=== PATIENT | male | born 1960 | race Caucasian/White ===

== ENCOUNTER 2020-01-18 17:01 | Outpatient (REF) | payer OTHER, SELFPAY | END 2020-01-18 17:02 | disposition home or self-care (01) | LOC: HO.LAB 17:01 | PROVIDERS: PCP Internal Medicine; Visit Provider Internal Medicine | DX: Z20.828 Contact with and (suspected) exposure to other viral communicable diseases (principal) | CPT/HCPCS: U0003 ==

== ENCOUNTER 2020-05-31 10:59 | Outpatient (REF) | payer OTHER, SELFPAY ==
[2020-05-31 11:20] LABS: MANUAL DIFF FLAG NO
[2020-05-31 11:40] LABS: Basophils Percent Auto 0.5 % (0-2); Eosinophils Absolute Auto 0.2 X10*3/uL (0.0-0.4); Eosinophils Percent Auto 2.6 % (0-4); Hematocrit 42.3 % (42-52); Hemoglobin 14.1 g/dl (14.0-18.0); Imm Gran Abs Auto 0.03 X10*3/uL (0.00-0.03); Imm Gran Pct Auto 0.5 % (0.0-0.4); Lymphocytes Absolute Auto 1.4 X10*3/uL (1.2-4.9); Lymphocytes Percent Auto 24.6 % (20-40); Mean Corpuscular HGB Conc 33.3 g/dl (31.0-36.0); Mean Corpuscular Hemoglobin 30.1 pg (27.0-33.0); Mean Corpuscular Volume 90.2 fL (80-98); Mean Platelet Volume 10.8 fL (9.4-12.4); Monocytes Absolute Auto 0.5 X10*3/uL (0.1-1.2); Monocytes Percent Auto 9.4 % (2-11); Neutrophils Absolute Auto 3.6 X10*3/uL (2.0-8.3); Neutrophils Percent Auto 62.4 % (45-73); Platelet Count 235 X10*3/uL (160-400); Red Blood Count 4.69 X10*6/uL (4.60-5.80); Red Cell Distribution Width 12.5 % (11.0-16.0); White Blood Count 5.7 X10*3/uL (4.8-10.8)
[2020-05-31 11:47] LABS: Glucose Urine UA NEG (NEG); Leukocyte Esterase Urine NEG (NEG); Nitrite Urine NEG (NEG); Urine Blood NEG (NEG); Urine Ketones NEG (NEG); Urine Protein NEG (NEG-TRACE)
[2020-05-31 11:48] LABS: Appearance Urine CLEAR; Color Urine YELLOW
[2020-05-31 12:11] LABS: Alanine Aminotransferase 25 U/L (0-40); Albumin Level 4.2 g/dL (3.5-5.0); Alkaline Phosphatase 54 U/L (39-117); Anion Gap 11 (12-20); Aspartate Amino Transferase 19 U/L (5-37); Bilirubin Total 1.3 mg/dL (0.0-1.0); Blood Urea Nitrogen 17 mg/dL (9-16); Calcium 9.2 mg/dL (8.4-10.2); Carbon Dioxide 27 mmol/L (22-29); Chloride 107 mmol/L (96-108); Cholesterol 181 mg/dL; Estimated Glomerular Filt Rate > 60; Glucose Fasting 93 mg/dL (60-99); HDL Cholesterol 57 mg/dL; LDL Cholesterol Calculated 105 mg/dl; Potassium 4.4 mmol/L (3.3-5.1); Sodium 141 mmol/L (135-145); Total Protein 6.8 g/dL (6.5-8.0); Triglycerides 97 mg/dL
[2020-05-31 12:33] LABS: PSA,Total (Free>4and<10) < 0.05 ng/mL (0.00-4.00)
== END 2020-05-31 11:00 | disposition home or self-care (01) ==
LOC: HO.LNP 10:59
PROVIDERS: PCP Internal Medicine; Visit Provider Internal Medicine
DX: I10 Essential (primary) hypertension (principal); E80.4 Gilbert syndrome; C61 Malignant neoplasm of prostate; Z00.00 Encounter for general adult medical examination without abnormal findings; Z12.5 Encounter for screening for malignant neoplasm of prostate
CPT/HCPCS: 80053; 80061; 81003; 84153; 85025

== ENCOUNTER 2021-09-15 08:59 | Outpatient (REF) | payer OTHER, SELFPAY ==
--- NOTE | ~2021-09-15 | CT_ITS ---
EXAMINATION: CT PELVIS WITHOUT CONTRAST CLINICAL INFORMATION: Right lower quadrant pain. COMPARISON: Previous renal and bladder ultrasound September 2014. TECHNIQUE: Helical scanning was performed with submillimeter collimation through the pelvis. Sagittal and coronal multiplanar 2-D reconstructions were obtained. This CT examination was performed using dose optimization techniques as appropriate, variously including the following: *Automated exposure control *Adjustment of mA and/or kV according to patient size (this includes techniques or standardized protocols for targeted exams where dose is matched to indication/reason for exam; i.e. extremities or head) *Use of iterative reconstruction technique DLP: 400 mGy-cm FINDINGS: There is mild diverticulosis of the colon. Visualized bowel is otherwise unremarkable. The bladder is unremarkable. The prostate gland has been removed. No ascites or adenopathy is seen. There are small inguinal lymph nodes. No enlarged lymph nodes are seen. There is evidence of atherosclerotic disease. No aneurysm is seen. There is a small left inguinal hernia containing fat. There is right inguinal bulge. There are degenerative changes of the spine and hip joints. There is curvature of the lower lumbar sacral spine to the right. No suspicious bone lesion is seen. CT/CT pelvis wo con IMPRESSION: Mild diverticulosis of the colon. Left inguinal hernia containing fat. Right inguinal bulge. Post prostatectomy.
== END 2021-09-15 09:00 | disposition home or self-care (01) ==
LOC: HO.CT 08:59
PROVIDERS: PCP Internal Medicine; Visit Provider Surgery
DX: R10.31 Right lower quadrant pain (principal); K40.90 Unilateral inguinal hernia, without obstruction or gangrene, not specified as recurrent; Z90.79 Acquired absence of other genital organ(s)
CPT/HCPCS: 72192

== ENCOUNTER 2021-11-02 07:24 | Day surgery (SDC) | payer OTHER, SELFPAY ==
[2021-10-27 14:28] VITALS: BMI 24.3
--- NOTE | 2021-11-01 09:45 | HO.ANESPROP2 ---
Documented by User: Jeri Deras NP 11/01/21 09:45 HPI - Anesthesia Eval Consult details Narrative: 60yo M for Left Open Hernia Repair Inguinal PMFSH Active Problems Active Problems: All Active Problems (Updated 10/27/21 @ 14:25 by Kyra Elizabeth, HEAVEN) Right groin pain (Acute) Left inguinal hernia (Acute) S/P prostatectomy (Acute) HTN (hypertension) (Acute) Past Medical History Medical History HTN (hypertension) Prostate cancer Surgical History Surgical History Hx of prostatectomy Social History Social History Patient Tobacco Use Status: Never used Tobacco Are you DNR?: No Advance Directives: No Advance Directives Information Provided: Yes Recently lost weight without trying: No Nutrition Risks: No Nutritional Risk Meds Allergies Allergy/AdvReac Type Severity Reaction Status Date / Time No Known Allergies Allergy Verified 09/22/21 13:38 Home Medications Medication Instructions Recorded Confirmed Last Taken Type carvedilol phosphate 40 mg 40 mg PO DAILY 09/05/21 09/05/21 11/02/21 History capsule,[id number] multiphase lisinopril 10 mg tablet 10 mg PO DAILY 09/05/21 09/05/21 11/01/21 History allopurinol 300 mg tablet 1 tab PO DAILY 11/02/21 11/02/21 11/02/21 History Exam Exam Date and Time: November 01, 2021 0945 Height,Weight and Vital Signs: Height 5 ft 10 in Weight 77.111 kg Assessment and Plan Assessment Anesthesia Assessment: Chart Reviewed Documented by User: Letitia Carreon MD 11/02/21 09:53 PMFSH Past Medical History Medical History HTN (hypertension) Prostate cancer Surgical History Surgical History Hx of prostatectomy History of Problems with Anesthesia: No Social History Social History Patient Tobacco Use Status: Never used Tobacco Are you DNR?: No Advance Directives: No Advance Directives Information Provided: Yes Recently lost weight without trying: No Nutrition Risks: No Nutritional Risk Meds Allergies Allergy/AdvReac Type Severity Reaction Status Date / Time No Known Allergies Allergy Verified 09/22/21 13:38 Home Medications Medication Instructions Recorded Confirmed Last Taken Type carvedilol phosphate 40 mg 40 mg PO DAILY 09/05/21 09/05/21 11/02/21 History capsule,[id number] multiphase lisinopril 10 mg tablet 10 mg PO DAILY 09/05/21 09/05/21 11/01/21 History allopurinol 300 mg tablet 1 tab PO DAILY 11/02/21 11/02/21 11/02/21 History Exam Airway Mallampati Class: III TM Dist: >3cm Neck ROM: Full Loose/Missing/Broken Teeth: No Heart: RRR Lungs: CTA Assessment and Plan Assessment Anesthesia Assessment: Anesthesia Plan Discussed Final Anesthetic Review History of Problems with Anesthesia: No NPO: Yes ASA Class: II Final Preanesthetic Review: Meds/Allgs Chart Reviewed, Consent Obtained/Reviewed and Anes Risks/Benef Reviewed Patient Risk: Low Procedure Risk: Low Anesthetic Plan Anesthetic Plan: GA Disposition: Standard PACU
[2021-11-02] VITALS (8 sets, daily range): BP systolic 115–141; BP diastolic 72–91; PULSE 58–86; RESP 16–20; TEMP 36.1–36.2; O2SAT 98–99
[2021-11-02] MEDS: Lactated Ringers 1,000 ML 100 ML IVCONT (08:22)
--- NOTE | 2021-11-02 09:24 | MHC.SHP ---
Pre-Procedural Eval Section A Date of Service: 11/02/21 Section B Chief Complaint: inguinal hernia Allergies: Allergies Allergy/AdvReac Type Severity Reaction Status Date / Time No Known Allergies Allergy Verified 09/22/21 13:38 Plan I have reviewed the history and physical and performed a pertinent physical examination on my patient. No changes have occurred unless specified.
--- NOTE | 2021-11-02 09:24 | MHC.SHP ---
Pre-Procedural Eval Section A Date of Service: 11/02/21 The patient is an INPATIENT: No The History & Physical has been completed within 30 days and I have reviewed it.: Yes Section B Chief Complaint: inguinal hernia Allergies: Allergies Allergy/AdvReac Type Severity Reaction Status Date / Time No Known Allergies Allergy Verified 09/22/21 13:38 Plan I have reviewed the history and physical and performed a pertinent physical examination on my patient. No changes have occurred unless specified.
--- NOTE | 2021-11-02 09:28 | P.OP_ITS ---
Operative Note Operative Note Date of Service: 11/02/21 Narrative: Pre Op Diagnosis: LEFT inguinal hernia, reducible Post Op Diagnosis: INDIRECT LEFT INGUINAL HERNIA Procedure: Open LEFT Inguinal hernia repair with mesh Surgeon: Sd Salgado MD Assist: none Anesthesia: General LMA; Ropivicaine, 0.5% EBL: 5cc Specimen: hernia sac Findings: Indirect left inguinal hernia; ileoinguinal nerve preserved Indications: The patient presented with a symptomatic LEFT inguinal hernia. The options including continued observation versus operative repair and 2nd opinion were discussed. The inherent risks to open inguinal hernia repair were discussed and options of laparoscopic or robotic/MIS repair were discussed. These risks of hernia surgery include, but are not limited to: Bleeding, infection, hernia recurrence especially if weight gain or postoperative instructions are not followed, nerve entrapment, chronic pain, mesh complications that could require reoperation. Transient worsening of the patient's urinary incontinence was also discussed since he has had robotic prostatectomy. The patient seemed to understand all of these options, had their questions answered and wanted to proceed. Procedure: The patient was identified in the preoperative holding area by myself and the operative site marked by me confirming a LEFT inguinal hernia. 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 The operative field hair had been clipped in preop holding. The patient was again identified in the operating suite and placed supine on the table. See anesthesia notes for full details regarding anesthesia care and management. An appropriate time-out was performed confirming the operative site and procedure. The patient was then widely prepped and draped in the usual manner using chlorhexidine. An ileoinguinal nerve block was performed using 0.5% Ropivicaine and a standard inguinal herniorrhaphy incision made sharply through the skin. Dissection was carried through all layers using electric cautery for dissection and hemostasis. Additional local was infiltrated is the external oblique aponeurosis, in the external oblique aponeurosis opened sharply in the direction of its fibers to the external ring. The ilioinguinal nerve was identified and preserved/sacrificed through the dissection. The cord was mobilized at the level of the pubic tubercle and surrounded with hernia tape. The floor was inspected and no direct hernia found. Careful dissection of the spermatic cord to preserve the vessels and vas was performed to assess for indirect hernia sac. The hernia sac was highly dissected, opened, its contents reduced and suture ligation performed with 2-) Polysorb. Next, the a standard Pamela tension-free herniorrhaphy performed using polypropylene patch that was sutured to the pubic tubercle and inguinal ligament using a 2-0 Polysorb. A new internal ring was made using 2-0 polypropylene suture. The new internal ring was snug enough that it could just accommodate a tip of a hemostat. Next, the operative field was inspected for hemostasis which was good, the external oblique aponeurosis was closed with a running 0 Polysorb suture, subcutaneous tissues closed with 3-0 Polysorb and skin closed with running 4-0 Monocryl subcuticular suture. The abdomen was washed and dried, Mastisol and Steri- Strips applied followed by a sterile dressing. Patient tolerated the procedure well was sent to the recovery area in stable condition. All sponge and instrument counts were correct x2. At the patient's request, I contact spoke to his and her questions seemed to be satisfactorily answered. of the procedure. Instructions regarding activity and pain management were reviewed. Questions were answered.
== END 2021-11-02 12:38 | disposition home or self-care (01) ==
LOC: HO.SSS 07:24
PROVIDERS: PCP Internal Medicine; Visit Provider Surgery
PROC: (CPT 49505; principal; 2021-11-02 09:10)
DX: K40.90 Unilateral inguinal hernia, without obstruction or gangrene, not specified as recurrent (principal); I10 Essential (primary) hypertension; Z79.899 Other long term (current) drug therapy; Z85.46 Personal history of malignant neoplasm of prostate
CPT/HCPCS: 49505; 88302; C1781; J0690; J1100; J1885; J2250; J2405; J2795; J3010

== ENCOUNTER 2021-11-07 09:16 | Outpatient (REF) | payer OTHER, SELFPAY ==
[2021-11-07 10:41] LABS: Uric Acid 5.4 mg/dL (3.4-7.0)
== END 2021-11-07 09:17 | disposition home or self-care (01) ==
LOC: HO.LAB 09:16
PROVIDERS: PCP Internal Medicine; Visit Provider Internal Medicine
DX: M10.071 Idiopathic gout, right ankle and foot (principal)
CPT/HCPCS: 36415; 84550

== ENCOUNTER → 2022-03-30 09:22 | Outpatient (BNVA) | payer OTHER, SELFPAY | PROVIDERS: PCP Internal Medicine; Referring Provider Internal Medicine; Visit Provider Surgery | DX: Z13.89 Encounter for screening for other disorder (principal) ==

== ENCOUNTER → 2022-04-11 14:44 | Outpatient (BNVA) | payer OTHER, SELFPAY | PROVIDERS: PCP Internal Medicine; Visit Provider Surgery | DX: L72.3 Sebaceous cyst (principal) | CPT/HCPCS: 11422 ==

== ENCOUNTER → 2022-04-19 08:56 | Outpatient (BNVA) | payer OTHER, SELFPAY | PROVIDERS: PCP Internal Medicine; Visit Provider Student in an Organized Health Care Education/Training Program | DX: Z13.89 Encounter for screening for other disorder (principal) ==

== ENCOUNTER 2022-04-19 10:02 | Outpatient (REF) | payer OTHER, SELFPAY ==
[2022-04-19 10:43] LABS: MANUAL DIFF FLAG NO
[2022-04-19 10:48] LABS: Basophils Absolute Auto 0.1 X10*3/uL (0.0-0.2); Basophils Percent Auto 0.5 % (0-2); Eosinophils Absolute Auto 0.3 X10*3/uL (0.0-0.4); Eosinophils Percent Auto 2.6 % (0-4); Hematocrit 43.1 % (42.0-52.0); Hemoglobin 14.6 g/dl (14.0-18.0); Imm Gran Abs Auto 0.14 X10*3/uL (0.00-0.03); Imm Gran Pct Auto 1.3 % (0.0-0.4); Lymphocytes Absolute Auto 1.7 X10*3/uL (1.2-4.9); Lymphocytes Percent Auto 15.5 % (20-40); Mean Corpuscular HGB Conc 33.9 g/dl (31.0-36.0); Mean Corpuscular Hemoglobin 29.9 pg (27.0-33.0); Mean Corpuscular Volume 88.1 fL (80.0-98.0); Mean Platelet Volume 10.3 fL (9.4-12.4); Monocytes Absolute Auto 0.9 X10*3/uL (0.1-1.2); Monocytes Percent Auto 8.5 % (2-11); Neutrophils Absolute Auto 7.8 x10*3/uL (2.0-8.3); Neutrophils Percent Auto 71.6 % (45-73); Platelet Count 287 X10*3/uL (160-400); Red Blood Count 4.89 X10*6/uL (4.60-5.80); Red Cell Distribution Width 12.9 % (11.0-16.0); White Blood Count 10.9 X10*3/uL (4.8-10.8)
[2022-04-19 11:18] LABS: Alanine Aminotransferase 37 U/L (0-40); Albumin Level 4.4 g/dL (3.5-5.0); Alkaline Phosphatase 81 U/L (39-117); Anion Gap 12 (12-20); Aspartate Amino Transferase 29 U/L (5-37); Bilirubin Total 1.3 mg/dL (0.0-1.0); Blood Urea Nitrogen 19 mg/dL (9-16); C Reactive Protein 0.75 mg/dL (< or = 0.50); Carbon Dioxide 26 mmol/L (22-29); Chloride 106 mmol/L (96-108); Estimated Glomerular Filt Rate > 60; Glucose Random 94 mg/dL (60-115); Potassium 4.8 mmol/L (3.3-5.1); Sodium 139 mmol/L (135-145); Uric Acid 4.9 mg/dL (3.4-7.0)
[2022-04-19 12:21] LABS: Erythrocyte Sedimentation Rate 16 MM/HR (0-15)
== END 2022-04-19 10:03 | disposition home or self-care (01) ==
LOC: HO.10HDL 10:02
PROVIDERS: Visit Provider Student in an Organized Health Care Education/Training Program
DX: M10.9 Gout, unspecified (principal)
CPT/HCPCS: 36415; 80053; 84550; 85025; 85652; 86140

== ENCOUNTER → 2022-04-20 09:13 | Outpatient (BNVA) | payer OTHER, SELFPAY | PROVIDERS: PCP Internal Medicine; Referring Provider Internal Medicine; Visit Provider Surgery | DX: Z13.89 Encounter for screening for other disorder (principal) ==

== ENCOUNTER 2022-05-29 11:52 | Outpatient (REF) | payer OTHER, SELFPAY ==
[2022-05-29 11:56] LABS: MANUAL DIFF FLAG NO
[2022-05-29 12:15] LABS: Basophils Percent Auto 0.5 % (0-2); Eosinophils Absolute Auto 0.2 X10*3/uL (0.0-0.4); Eosinophils Percent Auto 3.4 % (0-4); Hematocrit 42.2 % (42.0-52.0); Hemoglobin 14.3 g/dl (14.0-18.0); Imm Gran Abs Auto 0.03 X10*3/uL (0.00-0.03); Imm Gran Pct Auto 0.5 % (0.0-0.4); Lymphocytes Absolute Auto 1.4 X10*3/uL (1.2-4.9); Lymphocytes Percent Auto 24.6 % (20-40); Mean Corpuscular HGB Conc 33.9 g/dl (31.0-36.0); Mean Corpuscular Hemoglobin 30.2 pg (27.0-33.0); Mean Corpuscular Volume 89.2 fL (80.0-98.0); Mean Platelet Volume 11.2 fL (9.4-12.4); Monocytes Absolute Auto 0.6 X10*3/uL (0.1-1.2); Monocytes Percent Auto 10.1 % (2-11); Neutrophils Absolute Auto 3.4 x10*3/uL (2.0-8.3); Neutrophils Percent Auto 60.9 % (45-73); Platelet Count 203 X10*3/uL (160-400); Red Blood Count 4.73 X10*6/uL (4.60-5.80); White Blood Count 5.6 X10*3/uL (4.8-10.8)
[2022-05-29 12:19] LABS: Appearance Urine Clear; Color Urine Yellow; Glucose Urine UA Negative (Negative); Leukocyte Esterase Urine Negative (Negative); Nitrite Urine Negative (Negative); Urine Blood Negative (Negative); Urine Ketones Negative (Negative); Urine Protein Negative (Neg-Trace)
[2022-05-29 12:22] LABS: Bacteria Urine None Seen (None Seen); Hyaline Casts Urine 0-2 /LPF (0-2); RBC Urine 0-2 /HPF (0-2); Squamous Epithelial Cell Urine 0-2 /HPF (0-2); WBC Urine 0-5 /HPF (0-5)
[2022-05-29 12:40] LABS: Alanine Aminotransferase 31 U/L (0-40); Albumin Level 4.1 g/dL (3.5-5.0); Alkaline Phosphatase 61 U/L (39-117); Anion Gap 12 (12-20); Aspartate Amino Transferase 24 U/L (5-37); Bilirubin Total 1.6 mg/dL (0.0-1.0); Blood Urea Nitrogen 20 mg/dL (9-16); Carbon Dioxide 27 mmol/L (22-29); Chloride 108 mmol/L (96-108); Cholesterol 181 mg/dL; Estimated Glomerular Filt Rate 60; Glucose Fasting 102 mg/dL (60-99); HDL Cholesterol 52 mg/dL; LDL Cholesterol Calculated 111 mg/dl; Potassium 4.6 mmol/L (3.3-5.1); Sodium 142 mmol/L (135-145); Total Protein 6.5 g/dL (6.5-8.0); Triglycerides 93 mg/dL; Uric Acid 5.7 mg/dL (3.4-7.0)
[2022-05-29 13:04] LABS: PSA,Total (Free>4and<10) < 0.10 ng/mL (0.00-4.00)
== END 2022-05-29 11:53 | disposition home or self-care (01) ==
LOC: HO.LNP 11:52
PROVIDERS: Visit Provider Internal Medicine
DX: Z00.00 Encounter for general adult medical examination without abnormal findings (principal); Z12.5 Encounter for screening for malignant neoplasm of prostate; I10 Essential (primary) hypertension; M10.9 Gout, unspecified
CPT/HCPCS: 80053; 80061; 81001; 84153; 84550; 85025

== ENCOUNTER → 2022-06-21 11:09 | Outpatient (BNVA) | payer OTHER, SELFPAY | PROVIDERS: PCP Internal Medicine; Visit Provider Student in an Organized Health Care Education/Training Program ==

== ENCOUNTER 2022-11-16 16:08 | Outpatient (REF) | payer OTHER, SELFPAY ==
[2022-11-16 16:18] LABS: MANUAL DIFF FLAG NO
[2022-11-16 16:23] LABS: Basophils Percent Auto 0.4 % (0-2); Eosinophils Absolute Auto 0.3 X10*3/uL (0.0-0.4); Eosinophils Percent Auto 3.8 % (0-4); Hematocrit 42.9 % (42.0-52.0); Hemoglobin 14.7 g/dl (14.0-18.0); Imm Gran Abs Auto 0.04 X10*3/uL (0.00-0.03); Imm Gran Pct Auto 0.6 % (0.0-0.4); Lymphocytes Absolute Auto 1.8 X10*3/uL (1.2-4.9); Lymphocytes Percent Auto 26.4 % (20-40); Mean Corpuscular HGB Conc 34.3 g/dl (31.0-36.0); Mean Corpuscular Hemoglobin 30.2 pg (27.0-33.0); Mean Corpuscular Volume 88.3 fL (80.0-98.0); Monocytes Absolute Auto 0.7 X10*3/uL (0.1-1.2); Monocytes Percent Auto 9.7 % (2-11); Neutrophils Percent Auto 59.1 % (45-73); Platelet Count 242 X10*3/uL (160-400); Red Blood Count 4.86 X10*6/uL (4.60-5.80); Red Cell Distribution Width 12.5 % (11.0-16.0); White Blood Count 6.8 X10*3/uL (4.8-10.8)
[2022-11-16 17:10] LABS: Alanine Aminotransferase 29 U/L (0-40); Albumin Level 4.5 g/dL (3.5-5.0); Alkaline Phosphatase 80 U/L (39-117); Anion Gap 15 (12-20); Aspartate Amino Transferase 23 U/L (5-37); Bilirubin Total 0.8 mg/dL (0.0-1.0); Blood Urea Nitrogen 16 mg/dL (9-16); C Reactive Protein < 0.04 mg/dL (< or = 0.50); Calcium 9.7 mg/dL (8.4-10.2); Carbon Dioxide 25 mmol/L (22-29); Chloride 106 mmol/L (96-108); Estimated Glomerular Filt Rate > 60; Glucose Random 85 mg/dL (60-115); Potassium 4.1 mmol/L (3.3-5.1); Sodium 142 mmol/L (135-145); Total Protein 7.6 g/dL (6.5-8.0); Uric Acid 4.2 mg/dL (3.4-7.0)
[2022-11-16 17:22] LABS: Erythrocyte Sedimentation Rate 6 MM/HR (0-15)
== END 2022-11-16 16:09 | disposition home or self-care (01) ==
LOC: HO.LAB 16:08
PROVIDERS: Visit Provider Student in an Organized Health Care Education/Training Program
DX: M10.9 Gout, unspecified (principal)
CPT/HCPCS: 36415; 80053; 84550; 85025; 85652; 86140

== ENCOUNTER 2022-11-20 10:14 | Outpatient (AMB) | payer OTHER, SELFPAY ==
--- NOTE | 2022-11-20 10:20 | MHC.OFFVIS ---
Intake Vital Signs 11/20/22 10:27 Height 5 ft 10 in Weight 170 lb 6.677 oz BMI 24.4 BP 124/82 Blood Pressure Location Rt brachial Position Sitting Pulse 55 Pulse Source Pulse Oximeter Temp 97.1 F Temp Source Skin Pulse Oximetry (%) 99 Intake Visit Reasons: Gout Intake Note: Pt seen today for gout follow up and test results. He was last seen on 06/21/22. Reports flare up left ankle approx 3 weeks ago. Director Immunology Required: No Accompanied by: Self / Same As Patient Allergies No Known Allergies Allergy (Verified 11/20/22 10:29) Medication List - Last Reconciled 11/20/22 by Elgin Siddiqui MD allopurinol 1 tab PO DAILY ascorbic acid (vitamin C) mg PO carvedilol phosphate ER 40 mg PO DAILY colchicine (gout) 0.6 mg PO DAILY NS lisinopril 10 mg PO DAILY HPI HPI Comments History of Present Illness Details 61-year-old male with gout returns for follow-up. He was last seen in June. Over the last 5 months he had 3 gout flares. Most recent was 3 weeks ago when he was in [place] and was doing a lot of walking. The attack lasted at least 2 weeks. He was taking colchicine 2 tabs daily for 1 week then developed soft stools, he reduced it to 1 tab daily for 1 week with resolution of the flare. He had a another similar gout flare up 3-4 months ago. Stated that it started when he was being more active in the gym. He also had another minor flare-up that rapidly resolved in a few days. States that he has been having some intermittent bloating, increased cast and GI discomfort for a few months. Unrelated to colchicine use Initial history: This is a 61-year-old male with a past medical history of hypertension, prostate cancer s/p prostatectomy and gout who presents for gout evaluation. Patient states he started having gout attacks since the mid 90 usually affecting his ankles, feet, occasionally in his knees. He stated that 1 time he had a gout flare affecting his knee complicated by a Merrill cyst which was drained by an orthopedic surgeon and he was told it showed gout crystals. Denied ever getting attacks in his upper extremities. He had 1 kidney stone that passed. He is unaware of the kidney stone composition. Attacks were usually precipitated by alcohol consumption especially beer. He has cut down significantly on alcohol consumption. Currently only drinks 1-2 drinks a week. Patient would usually treat does attacks with colchicine for 4-5 days. Over the last year he started having much more frequent attacks. He was started on allopurinol 300 mg daily by his PCP. Since then patient had at least 6-8 gout flares. He mentions that the gout attacks severity it is going down. His most recent flare started 4-5 days ago affecting his left ankle and foot. He took ibuprofen twice. 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 Review of Systems GI Reports dyspepsia Musc Denies arthralgias and Denies joint swelling Physical Exam Vital Signs: Last Vital Signs Temp 97.1 F 11/20/22 10:27 Pulse 55 11/20/22 10:27 BP 124/82 11/20/22 10:27 Pulse Ox 99 11/20/22 10:27 BMI result Body Mass Index 24.4 Const General: cooperative, healthy appearing and comfortable Nutritional Appearance: average body habitus Orientation/consciousness: patient oriented x3 Limitations: no limitations HEENT Head: Yes normocephalic and Yes atraumatic Resp Effort & Inspection: normal respiratory effort and able to speak in complete sentences Auscultation: clear to auscultation bilaterally Cardio Rate: regular rate Rhythm: regular rhythm GI Inspection: No distended Palpation (GI): Soft to palpation and nontender Skin General skin exam: no rashes or lesions noted Neuro General: patient oriented x3 Extrem Other: No active synovitis No tophi noted Triggering of left 3rd finger Mild osteoarthritic changes of both hands Results Reviewed Results Reviewed: Labs 2019 Uric acid 8.9 Labs 10/2021 uric acid level 5.4 Assessment & Plan Assessment & Plan (1) Gout: Comment: dx 1990s affecting ankles, knees and feet. 1 time had ruptured Merrill cyst drained by Orthopedics and was told it contained uric acid crystals. Records not available for [place] Allopurinol 300 mg started 10/2021. Colchicine started 03/2022 - 05/10 restarted 0.6 mg qod 12/10 due to flares Code(s): M10.9 - Gout, unspecified Qualifiers: Gout site: multiple sites Gout etiology: idiopathic Chronicity: chronic Presence of tophus: with tophus Qualified Code(s): M1A.09X1 - Idiopathic chronic gout, multiple sites, with tophus (tophi) Plan: This is 61-year-old male who presents for gout follow-up. Over the last 5 months has had 3 gout flare-ups 2 of which lasted about 2 weeks, improved with colchicine, 2 tabs daily does cause soft stools. Most recent uric acid level is 4.2 which is at target. But this was just after a flare-up. Patient states that whenever he is more active he starts to get more gout flares. Continue to take allopurinol 300 mg daily. Start colchicine 0.6 mg every other day for prophylaxis. (patient is on carvedilol which can increase colchicine levels) start using chart thao juice extract daily and add 2 arley to a glass of water and drink daily Labs before next visit in 3 months (2) Trigger finger, left middle finger: Code(s): M65.332 - Trigger finger, left middle finger Plan: S/p right middle finger release in the past. Now developing triggering of left middle finger. Follow-up with hand surgeon (3) Gastrointestinal discomfort: Code(s): K30 - Functional dyspepsia Plan: No temporal relationship to colchicine. Follow-up with PCP Plan I spent 25 minutes reviewing patient's chart, evaluating patient, ordering diagnostic workup, counseling patient and documenting in the chart Orders: Orders Comprehensive Met. Panel 3 Months M10.9 - Gout, unspecified Uric Acid 3 Months M10.9 - Gout, unspecified Coding Level of Care Code Est Pt Level 4 (94857) Diagnoses Idiopathic chronic gout of multiple sites with tophus M1A.09X1 Gout site: multiple sites Gout etiology: idiopathic Chronicity: chronic Presence of tophus: with tophus Trigger finger, left middle finger M65.332 Gastrointestinal discomfort K30
[2022-11-20 10:27] VITALS: BP 124/82; PULSE 55; TEMP 36.2; O2SAT 99; BMI 24.4
== END 2022-11-20 10:54 | disposition home or self-care (01) ==
LOC: HO.RHE 10:14
PROVIDERS: PCP Internal Medicine; Visit Provider Student in an Organized Health Care Education/Training Program
DX: M1A.09X1 Idiopathic chronic gout, multiple sites, with tophus (tophi) (principal); M65.332 Trigger finger, left middle finger; K30 Functional dyspepsia
CPT/HCPCS: 99214

== ENCOUNTER → 2022-11-20 10:14 | Outpatient (BNVA) | payer OTHER, SELFPAY | PROVIDERS: PCP Internal Medicine; Visit Provider Student in an Organized Health Care Education/Training Program ==

== ENCOUNTER 2023-02-14 08:25 | Outpatient (REF) | payer OTHER, SELFPAY ==
[2023-02-14 11:01] LABS: Alanine Aminotransferase 34 U/L (0-40); Albumin Level 4.2 g/dL (3.5-5.0); Alkaline Phosphatase 83 U/L (39-117); Anion Gap 11 (12-20); Aspartate Amino Transferase 29 U/L (5-37); Bilirubin Total 0.9 mg/dL (0.0-1.0); Blood Urea Nitrogen 16 mg/dL (9-16); Calcium 8.8 mg/dL (8.4-10.2); Carbon Dioxide 21 mmol/L (22-29); Chloride 110 mmol/L (96-108); Estimated Glomerular Filt Rate > 60; Glucose Random 113 mg/dL (60-115); Potassium 4.1 mmol/L (3.3-5.1); Sodium 138 mmol/L (135-145); Total Protein 7.1 g/dL (6.5-8.0); Uric Acid 4.4 mg/dL (3.4-7.0)
== END 2023-02-14 08:26 | disposition home or self-care (01) ==
LOC: HO.10HDL 08:25
PROVIDERS: Visit Provider Student in an Organized Health Care Education/Training Program
DX: M10.9 Gout, unspecified (principal)
CPT/HCPCS: 36415; 80053; 84550

== ENCOUNTER 2023-02-21 10:31 | Outpatient (AMB) | payer OTHER, SELFPAY ==
--- NOTE | 2023-02-21 10:34 | MHC.OFFVIS ---
Intake Vital Signs 02/21/23 10:39 Height 5 ft 10 in Weight 174 lb 2.643 oz BMI 25.0 BP 118/82 Blood Pressure Location Rt brachial Position Sitting Pulse 63 Pulse Source Pulse Oximeter Temp 96.5 F L Temp Source Skin Pulse Oximetry (%) 98 Oxygen Delivery Method Room Air Intake Visit Reasons: Gout Intake Note: Pt last seen 11/20/22 presents today for follow up and test results. Pt reports one moderate flare in right foot since last visit. Allopurinol 300mg daily and colchicine qother day Account Receivable Associate Required: No Allergies No Known Allergies Allergy (Verified 02/21/23 10:41) Medication List - Last Reconciled 02/21/23 by Elgin Siddiqui MD allopurinol 1 tab PO DAILY ascorbic acid (vitamin C) mg PO carvedilol phosphate ER 40 mg PO DAILY colchicine 0.6 mg PO Q OTHER DAY colchicine 0.6 mg PO Q OTHER DAY lisinopril 10 mg PO DAILY HPI HPI Comments History of Present Illness Details 62-year-old male with gout returns for follow-up. On allopurinol 300 mg daily and colchicine 0.6 mg every other day. States that he has been doing well overall until plaque Saturday when he started having a gout flare affecting his left foot. It lasted about a week. He mentions that he had shrimp cocktail and turkey on . He took colchicine daily for a few days. He also had about 4 glasses of alcohol. Has been doing well otherwise. He feels that he has many flares that start might and resolve in the morning. He has been doing 1 lemon on water about 5 days a week. She could not tolerate tart thao extract. Initial history: This is a 61-year-old male with a past medical history of hypertension, prostate cancer s/p prostatectomy and gout who presents for gout evaluation. Patient states he started having gout attacks since the mid usually affecting his ankles, feet, occasionally in his knees. He stated that 1 time he had a gout flare affecting his knee complicated by a Merrill cyst which was drained by an orthopedic surgeon and he was told it showed gout crystals. Denied ever getting attacks in his upper extremities. He had 1 kidney stone that passed. He is unaware of the kidney stone composition. Attacks were usually precipitated by alcohol consumption especially beer. He has cut down significantly on alcohol consumption. Currently only drinks 1-2 drinks a week. Patient would usually treat does attacks with colchicine for 4-5 days. Over the last year he started having much more frequent attacks. He was started on allopurinol 300 mg daily by his PCP. Since then patient had at least 6-8 gout flares. He mentions that the gout attacks severity it is going down. His most recent flare started 4-5 days ago affecting his left ankle and foot. He took ibuprofen twice. 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 Review of Systems GI Reports dyspepsia Musc Reports arthralgias and Reports joint swelling Physical Exam Vital Signs: Last Vital Signs Temp 96.5 F L 02/21/23 10:39 Pulse 63 02/21/23 10:39 BP 118/82 02/21/23 10:39 Pulse Ox 98 02/21/23 10:39 Oxygen Delivery Method Room Air 02/21/23 10:39 BMI result Body Mass Index 25.0 Const General: cooperative, healthy appearing and comfortable Nutritional Appearance: average body habitus Orientation/consciousness: patient oriented x3 Limitations: no limitations HEENT Head: Yes normocephalic and Yes atraumatic Resp Effort & Inspection: normal respiratory effort and able to speak in complete sentences Auscultation: clear to auscultation bilaterally Cardio Rate: regular rate Rhythm: regular rhythm GI Inspection: No distended Palpation (GI): Soft to palpation and nontender Skin General skin exam: no rashes or lesions noted Neuro General: patient oriented x3 Extrem Other: No active synovitis No tophi noted Mild osteoarthritic changes of both hands Results Reviewed Results Reviewed: Labs 2019 Uric acid 8.9 Labs 10/2021 uric acid level 5.4 Assessment & Plan Assessment & Plan (1) Gout: Comment: dx 1990s affecting ankles, knees and feet. 1 time had ruptured Merrill cyst drained by Orthopedics and was told it contained uric acid crystals. Records not available for [place] Allopurinol 300 mg started 10/2021. Colchicine started 03/2022 - 05/10 restarted 0.6 mg qod 12/10 due to flares Code(s): M10.9 - Gout, unspecified Qualifiers: Gout site: multiple sites Gout etiology: idiopathic Chronicity: chronic Presence of tophus: with tophus Qualified Code(s): M1A.09X1 - Idiopathic chronic gout, multiple sites, with tophus (tophi) Plan: This is 62-year-old male who presents for gout follow-up. On allopurinol 300 mg daily and colchicine 0.6 mg every other day. Over the last 3 months has had 1 gout flare-up. Treated with taking colchicine daily for a few days, this was on black Saturday in the setting of eating shrimp and turkey. uric acid level is 4.4 which is at target. Continue to take allopurinol 300 mg daily. Continue with colchicine 0.6 mg every other day for prophylaxis. (patient is on carvedilol which can increase colchicine levels) continue with lemon water. He could not tolerate tart thao extract. Send a message to patient's PCP , consider switching lisinopril to an Arb such as losartan Labs before next visit in 4 months (2) Gastrointestinal discomfort: Code(s): K30 - Functional dyspepsia Plan: No temporal relationship to colchicine. Has been referred to GI Plan I spent 25 minutes reviewing patient's chart, evaluating patient, ordering diagnostic workup, counseling patient and documenting in the chart Orders: Orders Comprehensive Met. Panel Today M10.9 - Gout, unspecified Uric Acid 4 Months M10.9 - Gout, unspecified Medications: Changed From colchicine 0.6 mg PO Q OTHER DAY To colchicine 0.6 mg PO Q OTHER DAY 45 tabs 1RF NS Coding Level of Care Code Est Pt Level 4 (39250) Diagnoses Idiopathic chronic gout of multiple sites with tophus M1A.09X1 Gout site: multiple sites Gout etiology: idiopathic Chronicity: chronic Presence of tophus: with tophus Gastrointestinal discomfort K30
[2023-02-21 10:39] VITALS: BP 118/82; PULSE 63; TEMP 35.8; O2SAT 98; BMI 25.0
== END 2023-02-21 11:02 | disposition home or self-care (01) ==
PROVIDERS: PCP Internal Medicine; Visit Provider Student in an Organized Health Care Education/Training Program
DX: M1A.09X1 Idiopathic chronic gout, multiple sites, with tophus (tophi) (principal); K30 Functional dyspepsia
CPT/HCPCS: 99214

== ENCOUNTER → 2023-02-21 10:31 | Outpatient (BNVA) | payer OTHER, SELFPAY | PROVIDERS: PCP Internal Medicine; Visit Provider Student in an Organized Health Care Education/Training Program ==

== ENCOUNTER 2023-06-06 11:00 | Outpatient (REF) | payer OTHER, SELFPAY ==
[2023-06-06 11:03] LABS: MANUAL DIFF FLAG NO
[2023-06-06 12:15] LABS: Appearance Urine Clear; Color Urine Yellow; Glucose Urine UA Negative (Negative); Leukocyte Esterase Urine Negative (Negative); Nitrite Urine Negative (Negative); PH 5.5 (5.0-9.0); Urine Blood Negative (Negative); Urine Ketones Negative (Negative); Urine Protein Negative (Neg-Trace)
[2023-06-06 12:18] LABS: Basophils Percent Auto 0.4 % (0-2); Eosinophils Absolute Auto 0.1 X10*3/uL (0.0-0.4); Eosinophils Percent Auto 1.7 % (0-4); Hematocrit 42.8 % (42.0-52.0); Hemoglobin 14.5 g/dl (14.0-18.0); Imm Gran Abs Auto 0.04 X10*3/uL (0.00-0.03); Imm Gran Pct Auto 0.6 % (0.0-0.4); Lymphocytes Absolute Auto 1.5 X10*3/uL (1.2-4.9); Lymphocytes Percent Auto 21.5 % (20-40); Mean Corpuscular HGB Conc 33.9 g/dl (31.0-36.0); Mean Corpuscular Hemoglobin 30.5 pg (27.0-33.0); Mean Corpuscular Volume 89.9 fL (80.0-98.0); Monocytes Absolute Auto 0.6 X10*3/uL (0.1-1.2); Monocytes Percent Auto 9.2 % (2-11); Neutrophils Absolute Auto 4.6 x10*3/uL (2.0-8.3); Neutrophils Percent Auto 66.6 % (45-73); Platelet Count 244 X10*3/uL (160-400); Red Blood Count 4.76 X10*6/uL (4.60-5.80); Red Cell Distribution Width 12.6 % (11.0-16.0)
[2023-06-06 12:22] LABS: Bacteria Urine None Seen (None Seen); Hyaline Casts Urine 0-2 /LPF (0-2); RBC Urine 0-2 /HPF (0-2); Squamous Epithelial Cell Urine 0-2 /HPF (0-2); WBC Urine 0-5 /HPF (0-5)
[2023-06-06 13:21] LABS: Alanine Aminotransferase 35 U/L (0-40); Albumin Level 4.1 g/dL (3.5-5.0); Alkaline Phosphatase 72 U/L (39-117); Anion Gap 8 (12-20); Aspartate Amino Transferase 25 U/L (5-37); Bilirubin Total 1.4 mg/dL (0.0-1.0); Blood Urea Nitrogen 16 mg/dL (9-16); Calcium 8.8 mg/dL (8.4-10.2); Carbon Dioxide 27 mmol/L (22-29); Chloride 110 mmol/L (96-108); Cholesterol 156 mg/dL (<200); Estimated Glomerular Filt Rate > 60; Glucose Fasting 94 mg/dL (60-99); HDL Cholesterol 44 mg/dL (>40); LDL Cholesterol Calculated 95 mg/dL (<100); Potassium 4.2 mmol/L (3.3-5.1); Sodium 141 mmol/L (135-145); Total Protein 6.9 g/dL (6.5-8.0); Triglycerides 88 mg/dL (<150)
[2023-06-06 13:34] LABS: PSA,Total (Free>4and<10) < 0.10 ng/mL (0.00-4.00)
== END 2023-06-06 11:01 | disposition home or self-care (01) ==
LOC: HO.LNP 11:00
PROVIDERS: Visit Provider Internal Medicine
DX: Z00.00 Encounter for general adult medical examination without abnormal findings (principal); Z12.5 Encounter for screening for malignant neoplasm of prostate; I10 Essential (primary) hypertension
CPT/HCPCS: 80053; 80061; 81001; 84153; 85025

== ENCOUNTER 2023-07-24 08:09 | Outpatient (REF) | payer OTHER, SELFPAY ==
[2023-07-24 10:52] LABS: Alanine Aminotransferase 26 U/L (0-40); Albumin Level 4.2 g/dL (3.5-5.0); Alkaline Phosphatase 74 U/L (39-117); Anion Gap 11 (12-20); Aspartate Amino Transferase 22 U/L (5-37); Bilirubin Total 1.2 mg/dL (0.0-1.0); Blood Urea Nitrogen 18 mg/dL (9-16); Calcium 9.2 mg/dL (8.4-10.2); Carbon Dioxide 24 mmol/L (22-29); Chloride 107 mmol/L (96-108); Estimated Glomerular Filt Rate > 60; Glucose Random 112 mg/dL (60-115); Potassium 4.2 mmol/L (3.3-5.1); Sodium 138 mmol/L (135-145); Total Protein 7.1 g/dL (6.5-8.0); Uric Acid 4.5 mg/dL (3.4-7.0)
== END 2023-07-24 08:10 | disposition home or self-care (01) ==
LOC: HO.10HDL 08:09
PROVIDERS: Visit Provider Student in an Organized Health Care Education/Training Program
DX: M10.9 Gout, unspecified (principal)
CPT/HCPCS: 36415; 80053; 84550

== ENCOUNTER 2023-07-29 09:35 | Outpatient (AMB) | payer OTHER, SELFPAY ==
[2023-07-29 09:40] VITALS: BP 112/74; PULSE 65; O2SAT 97; BMI 24.5
--- NOTE | 2023-07-29 09:40 | MHC.OFFVIS ---
Vital Signs 07/29/23 09:40 Height 5 ft 10 in Weight 171 lb 1.259 oz BMI 24.5 BP 112/74 Blood Pressure Location Rt brachial Position Sitting Pulse 65 Pulse Source Pulse Oximeter Pulse Oximetry (%) 97 Oxygen Delivery Method Room Air Intake Visit Reasons: gout/cm Intake Note: Patient last seen 02/21/23 presents today for follow up and test results. Technician Preventative Medicine Required: No Accompanied by: Self / Same As Patient Allergies No Known Allergies Allergy (Verified 07/29/23 09:40) Medication List - Last Reconciled 07/29/23 by Elgin Siddiqui MD allopurinol 1 tab PO DAILY ascorbic acid (vitamin C) mg PO carvedilol phosphate ER 40 mg PO DAILY colchicine 0.6 mg PO DAILY lisinopril 10 mg PO DAILY HPI Comments Details: 62-year-old male with gout returns for follow-up. On allopurinol 300 mg daily and colchicine 0.6 mg daily. Towards the end of 05/08/2023 he started having a flare-up affecting his right ankle and going into his right foot. He started taking colchicine Twice daily without much improvement. He reached out to our office and I prescribed him a Medrol Dosepak which gave dramatic relief in the 1st day. Since that attack he has increased his colchicine to daily rather than every other day. He drinks lemon water 3-4 times a week. He could not tolerate tart thao extract. He drinks thao juice most days. States that he would have minor flare-ups affecting his heels that usually last a few days and self resolve without much intervention. He feels well today. Initial history: This is a 61-year-old male with a past medical history of hypertension, prostate cancer s/p prostatectomy and gout who presents for gout evaluation. Patient states he started having gout attacks since the mid usually affecting his ankles, feet, occasionally in his knees. He stated that 1 time he had a gout flare affecting his knee complicated by a Merrill cyst which was drained by an orthopedic surgeon and he was told it showed gout crystals. Denied ever getting attacks in his upper extremities. He had 1 kidney stone that passed. He is unaware of the kidney stone composition. Attacks were usually precipitated by alcohol consumption especially beer. He has cut down significantly on alcohol consumption. Currently only drinks 1-2 drinks a week. Patient would usually treat does attacks with colchicine for 4-5 days. Over the last year he started having much more frequent attacks. He was started on allopurinol 300 mg daily by his PCP. Since then patient had at least 6-8 gout flares. He mentions that the gout attacks severity it is going down. His most recent flare started 4-5 days ago affecting his left ankle and foot. He took ibuprofen twice. 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 Review of Systems Musc Denies arthralgias, Denies joint swelling and Denies stiffness Physical Exam Vital Signs: Last Vital Signs Pulse 65 07/29/23 09:40 BP 112/74 07/29/23 09:40 Pulse Ox 97 07/29/23 09:40 Oxygen Delivery Method Room Air 07/29/23 09:40 BMI result Body Mass Index 24.5 Const General: cooperative, healthy appearing and comfortable Nutritional Appearance: average body habitus Orientation/consciousness: patient oriented x3 Limitations: no limitations HEENT Head: Yes normocephalic and Yes atraumatic Resp Effort & Inspection: normal respiratory effort and able to speak in complete sentences Auscultation: clear to auscultation bilaterally Cardio Rate: regular rate Rhythm: regular rhythm Skin General skin exam: no rashes or lesions noted Neuro General: patient oriented x3 Extrem Other: No active synovitis No tophi noted Mild osteoarthritic changes of both hands Results Reviewed Results Reviewed: Labs 2019 Uric acid 8.9 Labs 10/2021 uric acid level 5.4 Assessment & Plan Assessment & Plan (1) Gout: Comment: dx affecting ankles, knees and feet. 1 time had ruptured Merrill cyst drained by Orthopedics and was told it contained uric acid crystals. Records not available for dc Allopurinol 300 mg started 10/2021. Colchicine started 03/2022 - 05/10 restarted 0.6 mg qod 12/10 due to flares, advanced to qd 05/2023 Code(s): M10.9 - Gout, unspecified Category: Medical Qualifiers: Gout site: multiple sites Gout etiology: idiopathic Chronicity: chronic Presence of tophus: with tophus Qualified Code(s): M1A.09X1 - Idiopathic chronic gout, multiple sites, with tophus (tophi) Plan: This is 62-year-old male who presents for gout follow-up. Doing well on allopurinol 300 mg daily and colchicine 0.6 mg daily. Has to have gout flare-up every few months. Uric acid level is at target less than 5. Continue current meds. I gave patient a list of foods that helped gout and foods to avoid. Advised patient to try following the diet as much as possible. Labs before next visit in 6 months Plan I spent 25 minutes reviewing patient's chart, evaluating patient, ordering diagnostic workup, counseling patient and documenting in the chart Orders: Orders Comprehensive Met. Panel 6 Months M1A.09X1 - Idiopathic chronic gout, multiple sites, with tophus (tophi) Uric Acid 6 Months M1A.09X1 - Idiopathic chronic gout, multiple sites, with tophus (tophi) Coding Level of Care Code Est Pt Level 3 (03917) Diagnoses Idiopathic chronic gout of multiple sites with tophus M1A.09X1 Gout site: multiple sites Gout etiology: idiopathic Chronicity: chronic Presence of tophus: with tophus
== END 2023-07-29 10:04 | disposition home or self-care (01) ==
PROVIDERS: PCP Internal Medicine; Visit Provider Student in an Organized Health Care Education/Training Program
DX: M1A.09X1 Idiopathic chronic gout, multiple sites, with tophus (tophi) (principal)
CPT/HCPCS: 99213

== ENCOUNTER → 2023-07-29 09:35 | Outpatient (BNVA) | payer OTHER, SELFPAY | PROVIDERS: PCP Internal Medicine; Visit Provider Student in an Organized Health Care Education/Training Program ==

== ENCOUNTER 2024-01-31 08:20 | Outpatient (REF) | payer OTHER, SELFPAY ==
--- OUTSIDE RECORDS SUMMARY | 2024-01-31 08:24 | XMS_ITS ---
Author Organization [facility] Address [address] [place] [id number] Care Team Providers Care News Librarian Name Role Phone Arturo Martinez MD Primary Care Provider Jayme Chavez Jr ALLERGIES No Known Allergies REASON FOR VISIT ibs with diarrhea MEDICATIONS Medication SIG (Take, Route, Frequency, Duration) Notes Start Date End Date Status Vitamin C Active Allopurinol Active Lisinopril Active Metamucil Active Colchicine Active Hyoscyamine Active Carvedilol Active SOCIAL HISTORY Tobacco Use: Social History Observation Description Date Details (start date - stop date) Never Smoker NA - NA Sex Assigned At : Social History Observation Description Sex Assigned At Unknown Tobacco Use/Smoking Question Answer Notes Patient is a nonsmoker Alcohol Screen Question Answer Notes Did you have a drink contain ing alcohol in the past year? Yes How often did you have a dri nk containing alcohol in the past year? Never (0 point) How many drinks did you have on a typical day when you were drinking in the past year? 1 or 2 drinks (0 point) How often did you have 6 or more drinks on one occasion in the past year? Never (0 point) Points 0 Interpretation Negative PROBLEMS Problem Type ICD Code Onset Dates Problem Status W/U Status Risk SNOMED Code Notes Problem Irritable bowel syndrome with diarrhea (K58.0) Active confirmed 217485780 Problem Colon cancer screening (Z12.11) Active confirmed [id number] VITAL SIGNS BMI 25.25 kg/m2 08/15/2023 Blood pressure systolic 00 mm Hg 08/15/19 24 Blood pressure diastolic 00 mm Hg 024 Height 5 ft 9 in in 08/15/2023 Weight 171 lbs 08/15/2023 Encounters Encounter Location Date Provider Diagnosis [facility] [address] [place] [address] 08/15/2023 Jayme August Jr Irritable bowel syndrome with diarrhea K58.0 and Colon cancer screening Z12.11 ASSESSMENTS Encounter Date Diagnosis Assessment Notes Treatment Notes Treatment Clinical Notes 08/15/2023 Irritable bowel syndrome with diarrhea (ICD-10 - K58.0) Irritable bowel syndrome material was printed 08/15/2023 Colon cancer screening (ICD-10 - Z12.11) PLAN OF TREATMENT Treatment Notes Assessment Notes Irritable bowel syndrome with diarrhea I rritable bowel syndrome material was printed Next Appt Details Follow Up: 1 Year, Reason: Provider Name:Jayme martin Jr, 08/13/2024 03:55:00 PM, [address], [address], [place], [address], Progress Notes * Examination Category Sub-Category Detail Notes General Examination GENERAL APPEARANCE: in no ac abdullahi distress HEAD: normocephalic EYES: sclera non-icteric NECK/THYROID: no lymphadenopathy HEART: S1, S2 normal, no mu rmurs CHEST: normal shape and exp ansion LUNGS: clear to auscultatio n bilaterally ABDOMEN: soft, nontender, non distended, bowel sounds present, no organomegaly SKIN: anicteric EXTREMITIES: no clubbing, cyanosi s, or edema PSYCH: cognitive function i ntact ORAL CAVITY: mucosa moist
--- OUTSIDE RECORDS SUMMARY | 2024-01-31 08:24 | XMS_ITS ---
Author Organization [facility] Address [address] [place] [address] Care Team Providers Care Game Author Name Role Phone Arturo Martinez MD Primary Care Provider Nathaniel August Jr, Jayme Schaffer Encounters Encounter Location Date Provider Diagnosis [facility] [address] [place] [address] 08/15/2023 Jayme August Jr PLAN OF TREATMENT Next Appt Details Provider Name:Jayme martin Jr, 08/13/2024 03:55:00 PM, [address], [address], [place], [address],
--- OUTSIDE RECORDS SUMMARY | 2024-01-31 08:25 | XMS_ITS ---
Author Organization Arturo Martinez MD Address [address] [place] [phone] Care Team Providers Care Hot Dip Galvanizer Name Role Phone Arturo Martinez Primary Care Provider REASON FOR VISIT referral NE Derm Encounters Encounter Location Date Provider Diagnosis Arturo Martinez MD [facility] [address] [place] [phone] 08/26/2023 Arturo Martinez PLAN OF TREATMENT Next Appt Details Provider Name:Arturo Knutson iesevero, 06/26/2024 07:30:00 AM, [address] [place] [address], [address] [place] [address], [phone], Provider Name:Arturo rasheed, 07/03/2024 02:30:00 PM, [address] [place] [address], [address] [place] [address], [phone],
--- OUTSIDE RECORDS SUMMARY | 2024-01-31 08:25 | XMS_ITS ---
Author Organization Arturo Martinez MD Address [address] [place] [phone] Care Team Providers Care Coremaking Supervisor Name Role Phone Arturo Martinez Primary Care Provider [phone] ALLERGIES Allergen (clinical drug ingredient) Drug/Non Drug Allergy documented on EMR Reaction Allergy Type Onset Date Status irbesartan Irbesartan pancreatiies Drug Allergy Active hydrochlorothiazide Hydrochlorothiazide cramps a nd elevted bun and cr Drug Allergy Active REASON FOR VISIT 6 MO F/U BP MEDICATIONS Medication SIG (Take, Route, Frequency, Duration) Notes Start Date End Date Status Colchicine 0.6 MG 1 tablet Orally twic e a day for 14 days 05/04/2019 Not-Taking Hyoscyamine Sulfate ER 0.375 MG 1 tablet Orally every 12 hrs 08/08/2023 Active Metamucil Free & Natural 43 % as directed Orally Active Celecoxib 200 MG 1 capsule with food Orally once a day for a week before and after allopurinol for 14 days 10/09/2021 Not-Taki ng predniSONE 20 MG 1 tablet Orally Once a day for 10 days 10/09/2021 Not-Taking Lisinopril 10 MG TAKE 1 TABLET BY DAYNE TH EVERY DAY Active Colchicine 0.6 MG 1 tablet Orally QOD 09/22/2021 Active Allopurinol 300 MG TAKE 1 TABLET BY DAYNE TH EVERY DAY FOR 30 DAYS Active Carvedilol Phosphate ER 40 MG TAKE 1 CAPSULE BY MOUTH WITH FOOD ONCE DAILY Active Vitamin C 500 MG as directed Orally Active TobraDex 0.3-0.1 % APPLY TO BOTH EYES D AILY AT BEDTIME Ophthalmic for 7 Not-Taking Ibuprofen 200 MG 1 tablet with food o r milk as needed Orally Three times a day Not-Taking Ocuflox 0.3 % 1 drop into affected eye Ophthalmic Four times a day for 10 days 01/29/2020 Not-Taking Ocuflox 0.3 % 1 drop into affected eye Ophthalmic Four times a day for 10 days 02/14/2021 Not-Taking VITAL SIGNS BMI 23.79 kg/m2 01/02/2024 Blood pressure systolic 118 mm Hg 01/02/20 24 Blood pressure diastolic 78 mm Hg 024 Height 71.5 in 01/02/2024 Weight 173 lbs 01/02/2024 Encounters Encounter Location Date Provider Diagnosis Arturo Martinez MD [address] [place] [address] Drive [address] [place], [place] [phone] 01/02/2024 Arturo Martinez Essential hypertension I10 and Gout M10.9 ASSESSMENTS Encounter Date Diagnosis Assessment Notes Treatment Notes Treatment Clinical Notes 01/02/2024 Essential hypertension (ICD-10 - I10) has pages of incredible readings will continue on the same 01/02/2024 Gout (ICD-10 - M10.9) is doing well with colchicine every other day is going to see pre sales technical consultant in few weeks PLAN OF TREATMENT Treatment Notes Assessment Notes Essential hypertension has pages of incr edible readings will continue on the same Gout is doing well with c olchicine every other day is going to see pre sales technical consultant in few weeks Next Appt Details Provider Name:Arturo rasheed, 06/26/2024 07:30:00 AM, [address], [address], [place], [place], [phone], Provider Name:Arturo rasheed, 07/03/2024 02:30:00 PM, [address], [address], [place], [place], [phone], Progress Notes * Examination Category Sub-Category Detail Notes General Examination GENERAL APPEARANCE: alert, w ell hydrated, in no distress HEAD: normocephalic HEART: regular rate and rhy thm , no murmurs, rubs, gallops LUNGS: no wheezes, rales, r honchi , good air movement
--- OUTSIDE RECORDS SUMMARY | 2024-01-31 08:25 | XMS_ITS ---
Author Organization Arturo Martinez MD Address [address] [place] [phone] Care Team Providers Care Field Traffic Investigator Name Role Phone Arturo Martinez Primary Care Provider ALLERGIES Allergen (clinical drug ingredient) Drug/Non Drug Allergy documented on EMR Reaction Allergy Type Onset Date Status irbesartan Irbesartan pancreatiies Drug Allergy Active hydrochlorothiazide Hydrochlorothiazide cramps a nd elevted bun and cr Drug Allergy Active REASON FOR VISIT 4 week MEDICATIONS Medication SIG (Take, Route, Frequency, Duration) Notes Start Date End Date Status Hyoscyamine Sulfate ER 0.375 MG 1 tablet Orally every 12 hrs 08/08/2023 Active Metamucil Free & Natural 43 % as directed Orally Active predniSONE 20 MG 1 tablet Orally Once a day for 10 days 10/09/2021 Not-Taking Celecoxib 200 MG 1 capsule with food Orally once a day for a week before and after allopurinol for 14 days 10/09/2021 Not-Taki ng Allopurinol 300 MG TAKE 1 TABLET BY DAYNE TH EVERY DAY FOR 30 DAYS Active Lisinopril 10 MG TAKE 1 TABLET BY DAYNE TH EVERY DAY Active Carvedilol Phosphate ER 40 MG TAKE 1 CAPSULE BY MOUTH WITH FOOD ONCE DAILY Active Vitamin C 500 MG as directed Orally Active Colchicine 0.6 MG 1 tablet Orally daily 09/22/2021 Active TobraDex 0.3-0.1 % APPLY TO BOTH EYES D AILY AT BEDTIME Ophthalmic for 7 Not-Taking Ibuprofen 200 MG 1 tablet with food o r milk as needed Orally Three times a day Not-Taking Ocuflox 0.3 % 1 drop into affected eye Ophthalmic Four times a day for 10 days 01/29/2020 Not-Taking Colchicine 0.6 MG 1 tablet Orally twic e a day for 14 days 05/04/2019 Not-Taking Ocuflox 0.3 % 1 drop into affected eye Ophthalmic Four times a day for 10 days 02/14/2021 Not-Taking VITAL SIGNS BMI 23.79 kg/m2 09/05/2023 Blood pressure systolic 112 mm Hg 09/05/19 24 Blood pressure diastolic 70 mm Hg 024 Height 71.5 in 09/05/2023 Weight 173 lbs 09/05/2023 Encounters Encounter Location Date Provider Diagnosis Arturo Martinez MD [address] [place] [address] Drive [address] [place], [place] [phone] 09/05/2023 Arturo Martinez Irritable bowel syndrome with diarrhea K58.0 ASSESSMENTS Encounter Date Diagnosis Assessment Notes Treatment Notes Treatment Clinical Notes 09/05/2023 Irritable bowel syndrome with diarrhea (ICD-10 - K58.0) doing great on hyoscyamine, will continue current regiment PLAN OF TREATMENT Medication Medication Name Sig Start Date Stop Date Notes Hyoscyamine Sulfate ER 0.375 MG 1 tablet Orally every 12 hrs 08/08/2023 Metamucil Free & Natural 43 % as directed Orally Treatment Notes Assessment Notes Irritable bowel syndrome with diarrhea d oing great on hyoscyamine, will continue current regiment Next Appt Details Provider Name:Arturo rasheed, 06/26/2024 07:30:00 AM, [address] [place] [address] Drive, [address], [place], [place], [phone], Provider Name:Arturo rasheed, 07/03/2024 02:30:00 PM, [address], [address], [place], [place], [phone], Progress Notes * Examination Category Sub-Category Detail Notes General Examination GENERAL APPEARANCE: alert, w ell hydrated, in no distress HEAD: normocephalic HEART: regular rate and rhy thm, no murmurs, rubs, gallops LUNGS: no wheezes, rales, r honchi, no wheezes, rales, rhonchi SKIN: good turgor
--- OUTSIDE RECORDS SUMMARY | 2024-01-31 08:25 | XMS_ITS | Patient Health Record ---
Author Organization [facility] Address [address] [place] [address] Care Team Providers Care Director Of Creative Services Name Role Phone Arturo Martinez MD Primary Care Provider Jayme Chavez Jr Unavailable ALLERGIES No Known Allergies REASON FOR REFERRAL Referring Provider First Name Arturo Referring Provider Last Name Juan Referring Provider Speciality Internal M edicine Referred Organization [facility] Referred Provider Jayme August Jr Referred Address [address],[place], [place],[address], Referred Provider Specialty Gastroentero logy General Notes Ashwini Terrazas 024 11:13:46 AM EDT > verbal information given to Jeri Bacon at Dr. Martinez's office Referral Priority Routine MEDICATIONS Medication SIG (Take, Route, Frequency, Duration) Notes Start Date End Date Status Hyoscyamine Active Vitamin C Active Carvedilol Active Allopurinol Active Lisinopril Active Metamucil Active Colchicine Active SOCIAL HISTORY Tobacco Use: Social History [...] bowel syndrome with diarrhea (K58.0) Active confirmed [id number] Problem Colon cancer screening (Z12.11) Active confirmed [id number] VITAL SIGNS Blood pressure diastolic 00 mm Hg 08/15/2023 Height 5 ft 9 in in 08/15/2023 Blood pressure systolic 00 mm Hg 08/15/2023 Weight 171 lbs 08/15/2023 BMI 25.25 kg/m2 08/15/2023 Encounters Encounter Location Date Provider Diagnosis [facility] [address] [place] [address] 08/15/2023 Jayme August Jr Irritable bowel syndrome with diarrhea K58.0 and Colon cancer screening Z12.11 [facility] [address] [place] [address] 08/15/2023 Jayme August Jr ASSESSMENTS Encounter Date Diagnosis Assessment Notes Treatment Notes Treatment Clinical Notes 08/15/2023 Colon cancer screening (ICD-10 - Z12.11) 08/15/2023 Irritable bowel syndrome with diarrhea (ICD-10 - K58.0) Irritable bowel syndrome material was printed PLAN OF TREATMENT Next Appt Details Provider Name:Jayme martin Jr, 08/13/2024 03:55:00 PM, [address] [place] [address], [address], [place], [address], Insurance Providers Payer Name Payer Address Payer Phone Subscriber Number Group Number Insured Name Patient Relationship to Insured Coverage Start Date Coverage End Date [employer] [address] [place] [id number] ETHAN OLSON Self - patient is the insured MEDICAL (GENERAL) HISTORY Medical History History ICD Code hypertension prostate cancer Gout pancreatitis 04/2019, ? secondary to irb esartan past hx of kidney stone gilberts syndrome basil cell carcinoma diverticulosis Surgical History Surgery Date(Month/Year) Prostatectomy Left inguinal herniorrhaphy
--- OUTSIDE RECORDS SUMMARY | 2024-01-31 08:26 | XMS_ITS | Patient Health Record ---
Author Organization Arturo Martinez MD Address [address] [place], [place] [address] Care Team Providers Care Radio Aerial Installer Name Role Phone Arturo Martinez Primary Care Provider [phone] ALLERGIES Allergen (clinical drug ingredient) Drug/Non Drug Allergy documented on EMR Reaction Allergy Type Onset Date Status irbesartan Irbesartan pancreatiies Drug Allergy Active hydrochlorothiazide Hydrochlorothiazide cramps a nd elevted bun and cr Drug Allergy Active RESULTS Component Value Reference Range Notes Complete Blood Count Auto Di ff Reviewed date:06/06/2023 05:43:51 PM Interpretation: Performing Lab:[facility], [address] [place] [id number] Notes/Report: White Blood Count 7.0 4.8-10.8 X10*3/uL Red Blood Count 4.76 4.60-5.80 X10*6/uL Hemoglobin 14.5 14.0-18.0 g/dl Hematocrit 42.8 42.0-52.0 % Mean Corpuscular Volume 89.9 80.0-98.0 fL Mean Corpuscular Hemoglobin 30.5 27.0-33.0 pg Mean Corpuscular HGB Conc 33.9 31.0-36.0 g/dl Red Cell Distribution Width 12.6 11.0-16.0 % Platelet Count 244 160-400 X10*3/uL Mean Platelet Volume 11.0 9.4-12.4 fL Neutrophils Percent Auto 66.6 45-73 % Imm Gran Pct Auto 0.6 0.0-0.4 % Lymphocytes Percent Auto 21.5 20-40 % Monocytes Percent Auto 9.2 2-11 % Eosinophils Percent Auto 1.7 0-4 % Basophils Percent Auto 0.4 0-2 % NRBC Pct Auto 0.0 0.0-0.2 /100WBC Neutrophils Absolute Auto 4.6 2.0-8.3 x10*3/u L Imm Gran Abs Auto 0.04 0.00-0.03 X10*3/uL Lymphocytes Absolute Auto 1.5 1.2-4.9 X10*3/u L Monocytes Absolute Auto 0.6 0.1-1.2 X10*3/uL Eosinophils Absolute Auto 0.1 0.0-0.4 X10*3/u L Basophils Absolute Auto 0.0 0.0-0.2 X10*3/uL NRBC Abs Auto 0.000 0.0-0.012 X10*3/uL Comprehensive Jar[place]. Panel Fa st Reviewed date:06/06/2023 05:26:34 PM Interpretation: Performing Lab:[facility], [address] [place] [phone] Notes/Report: Sodium 141 135-145 mmol/L Potassium 4.2 3.3-5.1 mmol/L Chloride 110 96-108 mmol/L Carbon Dioxide 27 22-29 mmol/L Anion Gap 8 12-20 Blood Urea Nitrogen 16 9-16 mg/dL Creatinine 1.15 0.5-1.4 mg/dL Estimated Glomerular Filt Rate > 60 NOTE: For -Surinamese individuals, multiply the result by 1.210. Chronic Kidney Disease: Estimated GFR < 60 mL/min/1.73m2 Severe Kidney Disease: Estimated GFR < 15 mL/min/1.73m2 Glucose Fasting 94 60-99 mg/dL Calcium 8.8 8.4-10.2 mg/dL Bilirubin Total 1.4 0.0-1.0 mg/dL Aspartate Amino Transferase 25 5-37 U/L Alanine Aminotransferase 35 0-40 U/L Total Protein 6.9 6.5-8.0 g/dL Albumin Level 4.1 3.5-5.0 g/dL Alkaline Phosphatase 72 39-117 U/L Lipid Panel Reviewed date:06/06/2023 05:25:53 PM Interpretation: Performing Lab:[address] [phone] Notes/Report: Triglycerides 88 <150 mg/dL Desirable Triglyceride: less than 150 mg/dL Borderline High Triglyceride 150-199 mg/dL High Triglyceride: 200-499 mg/dL Very High Triglyceride: greater than or equal to 5OO mg/dL Cholesterol 156 <200 mg/dL Desirable Cholesterol: less than 200 mg/dL Borderline High Cholesterol: 200-239 mg/dL High Cholesterol: greater than 239 mg/dL LDL Cholesterol Calculated 95 <100 mg/dL Desirable LDL: less than 100 mg/dL Near Optimal/Above Optimal LDL: 110-129 mg/dL Borderline High LDL: 130-159 mg/dL High LDL: 160-189 mg/dL Very High LDL: greater than or equal to 190 mg/dL HDL Cholesterol 44 >40 mg/dL Desirable HDL: greater than 40 mg/dL Note: This HDL assay may give artificially low results in patients with liver disease. PSA,Total (Free>4and<10) Reviewed date:06/06/2023 05:26:10 PM Interpretation: Performing Lab:[address] [phone] Notes/Report: PSA,Total (Free>4and<10) < 0.10 0.00-4.00 ng/mL A Free PSA was not performed: The percentage of Free PSA can be used to enhance the differentiation of prostate cancer from benign prostatic disease in subjects whose PSA levels are between 4.0 and 10.0 ng/mL. For subjects whose PSA levels are below 4.0 or above 10.0 ng/mL, the risk of prostate cancer is determined on the basis of the PSA alone. Therefore the % Free PSA is recommended only for those subjects whose PSA levels are between 4.0 and 10.0 ng/mL. PSA methodology: Steel Alinity i Chemiluminescent Microparticle Immunoassay (CMIA) UA ClnCatch+Micro w/rflx Cul t Reviewed date:06/06/2023 05:44:31 PM Interpretation: Performing Lab:[facility], [address] [place] [address], [place] [address] Notes/Report: Urine, Clean Catch Color Urine Yellow Appearance Urine Clear PH 5.5 5.0-9.0 Glucose Urine UA Negative Negative mg/dL Urine Blood Negative Negative Specific Brule - Urine 1.020 1.005-1.025 Urine Protein Negative Neg-Trace mg/dL Urine Ketones Negative Negative mg/dL Nitrite Urine Negative Negative Leukocyte Esterase Urine Negative Negative RBC Urine 0-2 0-2 /HPF WBC Urine 0-5 0-5 /HPF Squamous Epithelial Cell Urine 0-2 0-2 /HPF Bacteria Urine None Seen None Seen Hyaline Casts Urine 0-2 0-2 /LPF Occult Blood, Stool, Guaiac Reviewed date:07/01/2023 03:01:51 PM Interpretation:Negative Performing Lab: Notes/Report: Negative Occult Blood, Stool, Guaiac Neg REASON FOR REFERRAL Reason IBS with diarrhea Diagnosis 1 Irritable bowel synd laura with diarrhea (K58.0) Referral Organization Arturo Martinez MD Referring Provider First Name Arturo Referring Provider Last Name Juan Referring Provider Speciality Internal M edicine Referred Provider Jayme August Referred Provider Specialty Gastroentero logy General Notes Arleen Clancy 02:01:06 PM EDT > info faxed, Arleen Clancy 08/15/2023 11:02:05 AM EDT > patient is aware of appt Referral Priority Routine Referral Appointment Date 08/15/2023 MEDICATIONS Medication SIG (Take, Route, Frequency, Duration) Notes Start Date End Date Status Carvedilol Phosphate ER 40 MG TAKE 1 CAPSULE BY MOUTH WITH FOOD ONCE DAILY for 90 Active Colchicine 0.6 MG 1 tablet Orally twic [...] 10 MG TAKE 1 TABLET BY DAYNE EVERY DAY Active TobraDex 0.3-0.1 % APPLY TO BOTH EYES D AILY AT BEDTIME Ophthalmic for 7 Not-Taking Colchicine 0.6 MG 1 tablet Orally QOD 09/22/2021 Active Ibuprofen 200 MG 1 tablet with food o r milk as needed Orally Three times a day Not-Taking Allopurinol 300 MG TAKE 1 TABLET BY DAYNE TH EVERY DAY FOR 30 DAYS Active Vitamin C 500 MG as directed Orally Active Ocuflox 0.3 % 1 drop into affected eye Ophthalmic Four times a day for 10 days 01/29/2020 Not-Taking Ocuflox 0.3 % 1 drop into affected eye Ophthalmic Four times a day for 10 days 02/14/2021 Not-Taking IMMUNIZATIONS Vaccine Route Administration Date Status Comme nts DECLINED, FLU Unknown 04/14/2013 Administered Covid Vaccine Unknown 05/13/2020 Administered Moderna c vs Covid Vaccine Unknown 06/11/2020 Administered Moderna C VS SARS-COV-2 Moderna Unknown 01/20/2021 Administered [facility] SARS-COV-2 Moderna Unknown 10/15/2021 Administered [facility] Flu Vaccine Unknown 11/03/2013 Refused PPSV23 (Pnemovax) Unknown 05/13/2014 Refused Fluarix Quadrivalent Unknown 11/04/2014 Refused Fluarix Quadrivalent Unknown 11/08/2015 Refused Fluarix Quadrivalent Unknown 12/04/2016 Refused Fluarix Quadrivalent Unknown 12/13/2016 Refused Fluarix Quadrivalent Unknown 12/16/2017 Refused PPSV23 (Pnemovax) Unknown 03/20/2018 Refused TDaP Unknown 03/20/2018 Refused Fluarix Quadrivalent Unknown 12/23/2018 Refused Fluarix Quadrivalent Unknown 05/12/2019 Refused PPSV23 (Pnemovax) Unknown 05/12/2019 Refused Fluarix Quadrivalent Unknown 12/15/2020 Refused Fluarix Quadrivalent Unknown 12/08/2021 Refused SOCIAL HISTORY Tobacco Use: Social History Observation Description Date Details (start date - stop date) Never Smoker NA - NA Sex Assigned At : Social History Observation Description Sex Assigned At Unknown Tobacco Use/Smoking Question Answer Notes Patient is a nonsmoker Additional Findings: Tobacco Non-User Cu rrent non-smoker, currently using no form of tobacco Alcohol Screen Question Answer Notes Did you have a drink contain ing alcohol in the past year? Yes How often did you have a dri nk containing alcohol in the past year? 2 to 4 times a month (2 points) How many drinks did you have on a typical day when you were drinking in the past year? 1 or 2 drinks (0 point) How often did you have 6 or more drinks on one occasion in the past year? Never (0 point) Points 2 Interpretation Negative PROBLEMS Problem Type ICD Code Onset Dates Problem Status W/U Status Risk SNOMED Code Notes Problem Irritable bowel syndrome with diarrhea (K58.0) Active confirmed 005938616 Problem Gout (M10.9) Active confirmed Gout (905 62824) Problem Gilbert syndrome (E80.4) Active confirmed 65493637 Problem Essential hypertension (I10) Active confirmed 96422310 Problem Prostate cancer (C61) Active confirmed 651435685 Problem 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 40632213 Problem Multiple falls (R29.6) Active confirmed 105787750 Problem Acute idiopathic gout of right foot (M10.071) Active confirmed 27923390 Problem LEÓN (obstructive sleep apnea) (G47.33) Active confirmed 73043914 Problem Idiopathic acute pancreatitis without infection or necrosis (K85.00) Active confirmed 249767951 Problem Abdominal aortic atherosclerosis (I70.0) Active confirmed Abdominal aorti c atherosclerosis (079076326) Problem Acute gout of left ankle, unspecified cause (M10.9) Active confirmed 474154871 VITAL SIGNS Blood pressure diastolic 78 mm Hg 01/02/2024 Height 71.5 in 01/02/2024 Blood pressure systolic 118 mm Hg 01/02/2024 Weight 173 lbs 01/02/2024 BMI 23.79 kg/m2 01/02/2024 Encounters Encounter Location Date Provider Diagnosis Arturo Martinez MD [address] [place] [address] [address] [place] [id number] 07/01/2023 Arturo Martinez Multiple falls R29.6 ; Annual physical exam Z00.00 ; Gout M10.9 ; Essential hypertension I10 ; Colon cancer screening Z12.11 and Depression screening Z13.31 Arturo Martinez MD [address] [place] [address] Drive [address] [place] [id number] 06/06/2023 Arturo Martinez Blood tests for routine general physical examination Z00.00 and Essential hypertension I10 Arturo Martinez MD [address] [place] [id number] 01/02/2024 Arturo Martinez Essential hypertension I10 and Gout M10.9 Arturo Martinez MD [address] [place] [id number] 08/08/2023 Arturo Martinez Chronic diarrhea K52.9 and Irritable bowel syndrome with diarrhea K58.0 Arturo Martinez MD [address] [place] [id number] 09/05/2023 Arturo Martinez Irritable bowel syndrome with diarrhea K58.0 Arturo Martinez MD [address] [place] [address] [id number] 08/15/2023 Arturo Martinez MD [address] [place] [id number] 08/15/2023 Arturo Martinez Irritable bowel syndrome with diarrhea K58.0 Arturo Martinez MD [address] [place] [address] [id number] 08/26/2023 Arturo Martinez MD [address] [place] [address] [id number] 02/14/2023 Arturo Martinez MD [address] [place] [address] [id number] 02/20/2023 Arturo Martinez MD [address] [place] [address] [id number] 02/21/2023 Arturo Martinez MD [address] [place] [address] [id number] 03/11/2023 Arturo Martinez MD [address] [place] [id number] 08/04/2023 Arturo Martinez ASSESSMENTS Encounter Date Diagnosis Assessment Notes Treatment Notes Treatment Clinical Notes 07/01/2023 Annual physical exam (ICD-10 - Z00.00) labs reviewed and discussed with patient 07/01/2023 Multiple falls (ICD-10 - R29.6) will observe for now 06/06/2023 Essential hypertension (ICD-10 - I10) 06/06/2023 Blood tests for routine general physical examination (ICD-10 - Z00.00) 01/02/2024 Gout (ICD-10 - M10.9) is doing well with colchicine every other day is going to see paper reeler in few weeks 01/02/2024 Essential hypertension (ICD-10 - I10) has pages of incredible readings will continue on the same 08/08/2023 Irritable bowel syndrome with diarrhea (ICD-10 - K58.0) 08/08/2023 Chronic diarrhea (ICD-10 - K52.9) patient verbalized understanding of medication and directions for use 09/05/2023 Irritable bowel syndrome with diarrhea (ICD-10 - K58.0) doing great on hyoscyamine, will continue current regiment 08/15/2023 Irritable bowel syndrome with diarrhea (ICD-10 - K58.0) 07/01/2023 Gout (ICD-10 - M10.9) had an attack and had to take prednisone, will continue current regiment 07/01/2023 Essential hypertension (ICD-10 - I10) stable, will continue current regiment 07/01/2023 Colon cancer screening (ICD-10 - Z12.11) guaiac negative 07/01/2023 Depression screening (ICD-10 - Z13.31) negative screen PLAN OF TREATMENT Pending Test Test Name Order Date Electrocardiogram (EKG) 11/17/2015 Electrocardiogram (EKG) 12/13/2016 Electrocardiogram (EKG) 12/20/2017 Electrocardiogram (EKG) 01/02/2019 US LEG RT VENOUS DOPPLER 05/25/2019 Next Appt Details Provider Name:Arturo rasheed, 06/26/2024 07:30:00 AM, [address] [place] [address], [address], [place], [place], [phone], Provider Name:Arturo rasheed, 07/03/2024 02:30:00 PM, [address] [place] [address], [address], [place], [place], [phone], Insurance Providers Payer Name Payer Address Payer Phone Subscriber Number Group Number Insured Name Patient Relationship to Insured Coverage Start Date Coverage End Date [facility] [id number] JORY DOWELL [phone] [id number] Alexsander Ruiz Self - patient is the insured MEDICAL (GENERAL) HISTORY Medical History History ICD Code Hx Diverticulosis of colon COLONOSCOPY 09/25/2010 due in ten years w/ Dr. Michle
[2024-01-31 10:43] LABS: Alanine Aminotransferase 40 U/L (0-40); Albumin Level 4.1 g/dL (3.5-5.0); Alkaline Phosphatase 70 U/L (39-117); Anion Gap 10 (12-20); Aspartate Amino Transferase 29 U/L (5-37); Blood Urea Nitrogen 17 mg/dL (9-16); Carbon Dioxide 26 mmol/L (22-29); Chloride 107 mmol/L (96-108); Estimated Glomerular Filt Rate > 60; Glucose Random 172 mg/dL (60-115); Sodium 139 mmol/L (135-145); Total Protein 6.8 g/dL (6.5-8.0); Uric Acid 4.5 mg/dL (3.4-7.0)
== END 2024-01-31 08:21 | disposition home or self-care (01) ==
LOC: HO.10HDL 08:20
PROVIDERS: Visit Provider Student in an Organized Health Care Education/Training Program
DX: M1A.09X1 Idiopathic chronic gout, multiple sites, with tophus (tophi) (principal)
CPT/HCPCS: 36415; 80053; 84550

== ENCOUNTER 2024-02-04 09:10 | Outpatient (AMB) | payer OTHER, SELFPAY ==
--- OUTSIDE RECORDS SUMMARY | 2024-02-04 09:18 | XMS_ITS ---
Author Organization [facility] Address [address] [place] [address] Care Team Providers Care Shipwright Apprentice Name Role Phone Arturo Martinez MD Primary Care Provider Nathaniel August Jr, Jayme Schaffer Encounters Encounter Location Date Provider Diagnosis [facility] [address] [place] [address] 08/15/2023 Jayme August Jr PLAN OF TREATMENT Next Appt Details Provider Name:Jayme martin Jr, 08/13/2024 03:55:00 PM, [address], [address], [place], [address],
--- OUTSIDE RECORDS SUMMARY | 2024-02-04 09:18 | XMS_ITS ---
Author Organization Arturo Martinez MD Address [address] [place] [phone] Care Team Providers Care Supervisor Briar Shop Name Role Phone Arturo Martinez Primary Care [...] Location Date Provider Diagnosis Arturo Martinez MD [address] [place] [address] Drive [address] [place], [place] [id number] 01/02/2024 Arturo Martinez Essential hypertension I10 and Gout M10.9 ASSESSMENTS Encounter Date Diagnosis Assessment Notes Treatment Notes Treatment Clinical Notes 01/02/2024 Essential hypertension (ICD-10 - I10) has pages of incredible readings will continue on the same 01/02/2024 Gout (ICD-10 - M10.9) is doing well with colchicine every other day is going to see loft worker head in few weeks PLAN OF TREATMENT Treatment Notes Assessment Notes Essential hypertension has pages of incr edible readings will continue on the same Gout is doing well with c olchicine every other day is going to see loft worker head in few weeks Next Appt Details Provider Name:Arturo rasheed, 06/26/2024 07:30:00 AM, [address], [address], [place], [place], [phone], Provider Name:Arturo rasheed, 07/03/2024 02:30:00 PM, [address], [address], [place], [place], [phone], Progress Notes * Examination Category Sub-Category Detail Notes General Examination GENERAL APPEARANCE: alert, w ell hydrated, in no distress HEAD: normocephalic HEART: regular rate and rhy thm , no murmurs, rubs, gallops LUNGS: no wheezes, rales, r honchi , good air movement
--- OUTSIDE RECORDS SUMMARY | 2024-02-04 09:18 | XMS_ITS | Patient Health Record ---
Author Organization [facility] Address [address] [place] [address] Care Team Providers Care Conduit Reamer Operator Name Role Phone Arturo Martinez MD Primary Care Provider Jayme Chavez Jr Unavailable ALLERGIES No Known Allergies REASON FOR REFERRAL Referring Provider First Name Arturo Referring Provider Last Name Juan Referring Provider Speciality Internal M edicine Referred Organization [facility] Referred Provider Jayme August Jr Referred Address [address] [facility],[place], [place],[address], Referred Provider Specialty Gastroentero logy General Notes [...] bowel syndrome with diarrhea (K58.0) Active confirmed 191076052 Problem Colon cancer screening (Z12.11) Active confirmed 744957101 VITAL SIGNS Blood pressure diastolic 00 mm Hg 08/15/2023 Height 5 ft 9 in in 08/15/2023 Blood pressure systolic 00 mm Hg 08/15/2023 Weight 171 lbs 08/15/2023 BMI 25.25 kg/m2 08/15/2023 Encounters Encounter Location Date Provider Diagnosis [facility] [address] [place] [address] 08/15/2023 Jayme August Jr Irritable bowel syndrome with diarrhea K58.0 and Colon cancer screening Z12.11 [facility] [address] [facility] [address] [place] [address] 08/15/2023 Jayme August Jr ASSESSMENTS Encounter Date Diagnosis Assessment Notes Treatment Notes Treatment Clinical Notes 08/15/2023 Colon cancer screening (ICD-10 - Z12.11) 08/15/2023 Irritable bowel syndrome with diarrhea (ICD-10 - K58.0) Irritable bowel syndrome material was printed PLAN OF TREATMENT Next Appt Details Provider Name:Jayme martin Jr, 08/13/2024 03:55:00 PM, [address] [place] [address], [address], [place], [address], Insurance Providers Payer Name Payer Address Payer Phone Subscriber Number Group Number Insured Name Patient Relationship to Insured Coverage Start Date Coverage End Date [employer] [address] [place] [id number] ETHAN OLSON Self - patient is the insured MEDICAL (GENERAL) HISTORY Medical History History ICD Code hypertension prostate cancer Gout pancreatitis 04/2019, ? secondary to irb esartan past hx of kidney stone gilberts syndrome basil cell carcinoma diverticulosis Surgical History Surgery Date(Month/Year) Prostatectomy Left inguinal herniorrhaphy
--- OUTSIDE RECORDS SUMMARY | 2024-02-04 09:18 | XMS_ITS ---
Author Organization Arturo Martinez MD Address [address] [place] [phone] Care Team Providers Care Mailmaster Name Role Phone Arturo Martinez Primary Care Provider REASON FOR VISIT referral [facility] Encounters Encounter Location Date Provider Diagnosis Arturo Martinez MD [address] [facility] [address] [place] [phone] 08/26/2023 Arturo Martinez PLAN OF TREATMENT Next Appt Details Provider Name:Arturo Knutson iesevero, 06/26/2024 07:30:00 AM, [address] [place] [address], [address] [place] [address], [phone], Provider Name:Arturo rasheed, 07/03/2024 02:30:00 PM, [address] [place] [address], [address] [place] [address], [phone],
--- OUTSIDE RECORDS SUMMARY | 2024-02-04 09:18 | XMS_ITS ---
Author Organization [facility] Address [address] [place] [address] Care Team Providers Care Senior Training Specialist Name Role Phone Arturo Martinez MD Primary [...] bowel syndrome with diarrhea (K58.0) Active confirmed 184537492 Problem Colon cancer screening (Z12.11) Active confirmed 495773881 VITAL SIGNS BMI 25.25 kg/m2 08/15/2023 Blood pressure systolic 00 mm Hg 08/15/19 24 Blood pressure diastolic 00 mm Hg 024 Height 5 ft 9 in in 08/15/2023 Weight 171 lbs 08/15/2023 Encounters Encounter Location Date Provider Diagnosis [facility] [address] [place] [address] 08/15/2023 Jayme August Jr Irritable bowel syndrome [...] 03:55:00 PM, [address], [address], [place], [address], Progress Notes * Examination Category Sub-Category Detail [...]
--- OUTSIDE RECORDS SUMMARY | 2024-02-04 09:18 | XMS_ITS ---
Author Organization Arturo Martinez MD Address [address] [place] [phone] Care Team Providers Care Highway Administrative Engineer Name Role Phone Arturo Martinez Primary Care [...] Location Date Provider Diagnosis Arturo Martinez MD [address] [place] [address] Drive [address] [place], [place] [phone] 09/05/2023 Arturo Martinez Irritable bowel syndrome with [...] Details Provider Name:Arturo rasheed, 06/26/2024 07:30:00 AM, [address] [place] [address] Drive, [address], [place], [place], [phone], Provider Name:Arturo rasheed, 07/03/2024 02:30:00 PM, [address], [address], [place], [place], [phone], Progress Notes * Examination Category Sub-Category Detail Notes General Examination GENERAL APPEARANCE: alert, w ell hydrated, in no distress HEAD: normocephalic HEART: regular rate and rhy thm, no murmurs, rubs, gallops LUNGS: no wheezes, rales, r honchi, no wheezes, rales, rhonchi SKIN: good turgor
--- NOTE | 2024-02-04 09:19 | MHC.OFFVIS ---
Vital Signs 02/04/24 09:23 Height 5 ft 10 in Weight 171 lb 11.841 oz BMI 24.6 BP 120/78 Blood Pressure Location Lt brachial Position Sitting Pulse 61 Pulse Source Pulse Oximeter Pulse Oximetry (%) 98 Oxygen Delivery Method Room Air Intake Visit Reasons: Gout Intake Note: Patient presents for Gout. Allergies No Known Allergies Allergy (Verified 02/04/24 09:22) Medication List - Last Reconciled 02/04/24 by Elgin Siddiqui MD allopurinol 1 tab PO DAILY ascorbic acid (vitamin C) mg PO carvedilol phosphate ER 40 mg PO DAILY colchicine 0.6 mg PO DAILY hyoscyamine sulfate ER 0.375 mg PO Q12H lisinopril 10 mg PO DAILY HPI Comments Details: 63-year-old male with gout returns for follow-up. On allopurinol 300 mg daily and colchicine 0.6 mg every other day. He states that since the end of October of 2023 he spaced out his colchicine to every other day. He states that he has not had any gout flare-ups in many months. He offers no complaints today. Initial history: This is a 61-year-old male with a past medical history of hypertension, prostate cancer s/p prostatectomy and gout who presents for gout evaluation. Patient states he started having gout attacks since the mid usually affecting his ankles, feet, occasionally in his knees. He stated that 1 time he had a gout flare affecting his knee complicated by a Merrill cyst which was drained by an orthopedic surgeon and he was told it showed gout crystals. Denied ever getting attacks in his upper extremities. He had 1 kidney stone that passed. He is unaware of the kidney stone composition. Attacks were usually precipitated by alcohol consumption especially beer. He has cut down significantly on alcohol consumption. Currently only drinks 1-2 drinks a week. Patient would usually treat does attacks with colchicine for 4-5 days. Over the last year he started having much more frequent attacks. He was started on allopurinol 300 mg daily by his PCP. Since then patient had at least 6-8 gout flares. He mentions that the gout attacks severity it is going down. His most recent flare started 4-5 days ago affecting his left ankle and foot. He took ibuprofen twice. 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 Review of Systems [employer] Denies arthralgias, Denies joint swelling and Denies stiffness Physical Exam Vital Signs: Last Vital Signs Pulse 61 02/04/24 09:23 BP 120/78 02/04/24 09:23 Pulse Ox 98 02/04/24 09:23 Oxygen Delivery Method Room Air 02/04/24 09:23 BMI result Body Mass Index 24.6 Const General: cooperative, healthy appearing and comfortable Nutritional Appearance: average body habitus Orientation/consciousness: patient oriented x3 Limitations: no limitations HEENT Head: Yes normocephalic and Yes atraumatic Resp Effort & Inspection: normal respiratory effort and able to speak in complete sentences Auscultation: clear to auscultation bilaterally Cardio Rate: regular rate Rhythm: regular rhythm Skin Other: Dry skin both elbows but there is a patch that is suspicious for psoriasis on the left elbow General skin exam: no rashes or lesions noted Neuro General: patient oriented x3 Extrem Other: No active synovitis No tophi noted Mild osteoarthritic changes of both hands Assessment & Plan Assessment & Plan (1) Gout: Comment: dx affecting ankles, knees and feet. 1 time had ruptured Merrill cyst drained by Orthopedics and was told it contained uric acid crystals. Records not available for nv Allopurinol 300 mg started 10/2021. 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 Doing well on allopurinol 300 mg daily and colchicine 0.6 mg every other day. Has not had any gout flare-ups for many months. Uric acid levels at target 4.5 mg/dL Continue with allopurinol 300 mg daily. DC colchicine after the holiday season Labs before next visit in 6 months Plan I spent 25 minutes reviewing patient's chart, evaluating patient, ordering diagnostic workup, counseling patient and documenting in the chart Orders: Orders Comprehensive Met. Panel 6 Months M1A.09X1 - Idiopathic chronic gout, multiple sites, with tophus (tophi) Uric Acid 6 Months M1A.09X1 - Idiopathic chronic gout, multiple sites, with tophus (tophi) Coding Level of Care Code Est Pt Level 4 (27252) Diagnoses Idiopathic chronic gout of multiple sites with tophus M1A.09X1 Gout site: multiple sites Gout etiology: idiopathic Chronicity: chronic Presence of tophus: with tophus
--- OUTSIDE RECORDS SUMMARY | 2024-02-04 09:19 | XMS_ITS | Patient Health Record ---
Author Organization Arturo Martinez MD Address [address] [place], [place] [id number] Care Team Providers Care Towboat Pilot Name Role Phone Arturo Martinez Primary Care Provider [phone] ALLERGIES Allergen (clinical drug ingredient) Drug/Non Drug Allergy documented on EMR Reaction Allergy Type Onset Date Status irbesartan Irbesartan pancreatiies Drug Allergy Active hydrochlorothiazide Hydrochlorothiazide cramps a nd elevted bun and cr Drug Allergy Active RESULTS Component Value Reference Range Notes Complete Blood Count Auto Di ff Reviewed date:06/06/2023 05:43:51 PM Interpretation: Performing Lab:[facility], [address] [place] [phone] Notes/Report: White Blood Count 7.0 4.8-10.8 X10*3/uL [...] NRBC Abs Auto 0.000 0.0-0.012 X10*3/uL Comprehensive [place]. Panel Fa st Reviewed date:06/06/2023 05:26:34 PM Interpretation: Performing Lab:[facility], [address] [place] [phone] Notes/Report: Sodium 141 135-145 mmol/L Potassium 4.2 3.3-5.1 mmol/L Chloride 110 96-108 mmol/L Carbon Dioxide 27 22-29 mmol/L Anion Gap 8 12-20 Blood Urea Nitrogen 16 9-16 mg/dL Creatinine 1.15 0.5-1.4 mg/dL Estimated Glomerular Filt Rate > 60 NOTE: For -Angolan individuals, multiply the result by 1.210. Chronic [...] Panel Reviewed date:06/06/2023 05:25:53 PM Interpretation: Performing Lab:[address] [phone] Notes/Report: Triglycerides 88 <150 mg/dL Desirable Triglyceride: [...] (Free>4and<10) Reviewed date:06/06/2023 05:26:10 PM Interpretation: Performing Lab:[address] [phone] Notes/Report: PSA,Total (Free>4and<10) < 0.10 0.00-4.00 ng/mL [...] t Reviewed date:06/06/2023 05:44:31 PM Interpretation: Performing Lab:[facility], [address] [place] [address], [place] [phone] Notes/Report: Urine, Clean Catch Color Urine Yellow Appearance Urine Clear PH 5.5 5.0-9.0 Glucose Urine UA Negative Negative mg/dL Urine Blood Negative Negative Specific [place] - Urine 1.020 1.005-1.025 Urine Protein Negative [...] bowel syndrome with diarrhea (K58.0) Active confirmed 793752243 Problem Gout (M10.9) Active confirmed Gout (905 66533) Problem Gilbert syndrome (E80.4) Active confirmed 86627754 Problem Essential hypertension (I10) Active confirmed 74788618 Problem Prostate cancer (C61) Active confirmed 576834975 Problem 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 90366013 Problem Multiple falls (R29.6) Active confirmed 999863776 Problem Acute idiopathic gout of right foot (M10.071) Active confirmed 93470272 Problem ELÓN (obstructive sleep apnea) (G47.33) Active confirmed 20091198 Problem Idiopathic acute pancreatitis without infection or necrosis (K85.00) Active confirmed 182446846 Problem Abdominal aortic atherosclerosis (I70.0) Active confirmed Abdominal aorti c atherosclerosis (329763260) Problem Acute gout of left ankle, unspecified cause (M10.9) Active confirmed 584238129 VITAL SIGNS Blood pressure diastolic 78 mm Hg 01/02/2024 Height 71.5 in 01/02/2024 Blood pressure systolic 118 mm Hg 01/02/2024 Weight 173 lbs 01/02/2024 BMI 23.79 kg/m2 01/02/2024 Encounters Encounter Location Date Provider Diagnosis Arturo Martinez MD [address] [place] [address] Drive [address] [place] [id number] 07/01/2023 Arturo Martinez Multiple falls R29.6 ; Annual physical exam Z00.00 ; Gout M10.9 ; Essential hypertension I10 ; Colon cancer screening Z12.11 and Depression screening Z13.31 Arturo Martinez MD [address] [place] [address] Drive [address] [place] [id number] 06/06/2023 Arturo Martinez Blood tests for routine general physical examination Z00.00 and Essential hypertension I10 Arturo Martinez MD [address] [place] [id number] 01/02/2024 Arturo Martinez Essential hypertension I10 and Gout M10.9 Arturo Martinez MD [address] [place] [id number] 08/08/2023 Arturo Martinez Chronic diarrhea K52.9 and Irritable bowel syndrome with diarrhea K58.0 Arturo Martinez MD [address] [place] [id number] 09/05/2023 Arturo Martinez Irritable bowel syndrome with diarrhea K58.0 Arturo Martinez MD [address] [place] [id number] 08/15/2023 Arturo Martinez MD [address] [place] [id number] 08/15/2023 Arturo Martinez Irritable bowel syndrome with diarrhea K58.0 Arturo Martinez MD [address] [place] [address] [id number] 08/26/2023 Arturo Martinez MD [address] [place] [id number] 02/14/2023 Arturo Martinez MD [address] [place] [id number] 02/20/2023 Arturo Martinez MD [address] [place] [address] [id number] 02/21/2023 Arturo Martinez MD [address] [place] [address] [id number] 03/11/2023 Arturo Martinez MD [address] [place] [id number] 08/04/2023 Arturo Martinez ASSESSMENTS Encounter Date Diagnosis [...] every other day is going to see land development project manager in few weeks 01/02/2024 Essential hypertension (ICD-10 [...] Test Test Name Order Date Electrocardiogram (EKG) 01/02/2019 Electrocardiogram (EKG) 11/17/2015 Electrocardiogram (EKG) 12/13/2016 Electrocardiogram (EKG) 12/20/2017 US LEG RT VENOUS DOPPLER 05/25/2019 Next Appt Details Provider Name:Arturo rasheed, 06/26/2024 07:30:00 AM, [address] [place] [address], [address], [place], [place], [phone], Provider Name:Arturo rasheed, 07/03/2024 02:30:00 PM, [address] [place] [address], [address], [place], [place], [phone], Insurance Providers Payer Name Payer Address Payer Phone Subscriber Number Group Number Insured Name Patient Relationship to Insured Coverage Start Date Coverage End Date [facility] [id number] [place] [id number] [phone] [id number] Alexsander Ruiz Self - patient is the insured MEDICAL (GENERAL) HISTORY Medical History History ICD Code Hx Diverticulosis of colon COLONOSCOPY 09/25/2010 due in ten years w/ Dr. Michel
[2024-02-04 09:23] VITALS: BP 120/78; PULSE 61; O2SAT 98; BMI 24.6
== END 2024-02-04 09:53 | disposition home or self-care (01) ==
PROVIDERS: PCP Internal Medicine; Visit Provider Student in an Organized Health Care Education/Training Program
DX: M1A.09X1 Idiopathic chronic gout, multiple sites, with tophus (tophi) (principal)
CPT/HCPCS: 99214

== ENCOUNTER 2024-06-26 10:08 | Outpatient (REF) | payer OTHER, SELFPAY ==
[2024-06-26 10:10] LABS: MANUAL DIFF FLAG NO
[2024-06-26 10:23] LABS: Basophils Percent Auto 0.5 % (0-2); Eosinophils Absolute Auto 0.2 X10*3/uL (0.0-0.4); Eosinophils Percent Auto 3.4 % (0-4); Hematocrit 42.5 % (42.0-52.0); Hemoglobin 14.6 g/dl (14.0-18.0); Imm Gran Abs Auto 0.04 X10*3/uL (0.00-0.03); Imm Gran Pct Auto 0.7 % (0.0-0.4); Lymphocytes Absolute Auto 1.4 X10*3/uL (1.2-4.9); Lymphocytes Percent Auto 23.3 % (20-40); Mean Corpuscular HGB Conc 34.4 g/dl (31.0-36.0); Mean Corpuscular Hemoglobin 30.7 pg (27.0-33.0); Mean Corpuscular Volume 89.5 fL (80.0-98.0); Mean Platelet Volume 10.9 fL (9.4-12.4); Monocytes Absolute Auto 0.6 X10*3/uL (0.1-1.2); Monocytes Percent Auto 9.9 % (2-11); Neutrophils Absolute Auto 3.7 x10*3/uL (2.0-8.3); Neutrophils Percent Auto 62.2 % (45-73); Platelet Count 218 X10*3/uL (160-400); Red Blood Count 4.75 X10*6/uL (4.60-5.80); Red Cell Distribution Width 12.8 % (11.0-16.0); White Blood Count 5.9 X10*3/uL (4.8-10.8)
[2024-06-26 10:24] LABS: Appearance Urine Clear; Color Urine Yellow; Glucose Urine UA Negative (Negative); Leukocyte Esterase Urine Negative (Negative); Nitrite Urine Negative (Negative); PH 5.5 (5.0-9.0); Urine Blood Negative (Negative); Urine Ketones Negative (Negative); Urine Protein Negative (Neg-Trace)
[2024-06-26 10:27] LABS: Bacteria Urine None Seen (None Seen); Hyaline Casts Urine 0-2 /LPF (0-2); RBC Urine 0-2 /HPF (0-2); Squamous Epithelial Cell Urine 0-2 /HPF (0-2); WBC Urine 0-5 /HPF (0-5)
--- OUTSIDE RECORDS SUMMARY | 2024-06-26 10:38 | XMS_ITS | Patient Health Record ---
Author Organization Arturo Martinez MD Address [address] [place] [phone] Care Team Providers Care Foreign Languages Professor Name Role Phone Arturo Martinez Primary Care Provider Allergies Allergen (clinical drug ingredient) Drug/Non Drug Allergy documented on EMR Reaction Allergy Type Onset Date Status irbesartan Irbesartan pancreatiies Drug Allergy Active hydrochlorothiazide Hydrochlorothiazide cramps a nd elevted bun and cr Drug Allergy Active Results Component Value Reference Range Notes Complete Blood Count Auto Di ff (Not yet reviewed by provider) Interpretation: Performing Lab:[facility], [place], [address] [place] [phone] Notes/Report: White Blood Count 5.9 4.8-10.8 X10*3/uL [...] X10*3/uL NRBC Abs Auto 0.000 0.0-0.012 X10*3/uL UA ClnCatch+Micro w/rflx Cul t (Not yet reviewed by provider) Interpretation: Performing Lab:[facility], [place], [address] [place] [phone] Notes/Report: Urine, Clean Catch Color Urine Yellow Appearance Urine Clear PH 5.5 5.0-9.0 Glucose Urine UA Negative Negative mg/dL Urine Blood Negative Negative Specific [place] - Urine 1.020 1.005-1.025 Urine Protein Negative [...] Notes/Report: Negative Occult Blood, Stool, Guaiac Neg Reason For Referral Reason IBS with diarrhea Diagnosis 1 Irritable [...] Referral Priority Routine Referral Appointment Date 08/15/2023 Medications Medication SIG (Take, Route, Frequency, Duration) Notes Start Date End Date Status Carvedilol Phosphate ER 40 MG TAKE 1 CAPSULE BY MOUTH WITH FOOD ONCE DAILY for 90 Active Allopurinol 300 MG TAKE 1 TABLET BY DAYNE TH EVERY DAY FOR 30 DAYS for 90 Active Colchicine 0.6 MG 1 [...] a day for 10 days 10/09/2021 Not-Taking TobraDex 0.3-0.1 % APPLY TO BOTH EYES D AILY AT BEDTIME Ophthalmic for 7 Not-Taking Colchicine 0.6 MG 1 tablet Orally QOD 09/22/2021 Active Ibuprofen 200 MG 1 tablet with food o r milk as needed Orally Three times a day Not-Taking Lisinopril 10 MG TAKE 1 TABLET BY DAYNE TH EVERY DAY for 90 Active Vitamin C 500 MG as directed Orally Active Ocuflox 0.3 % 1 drop into affected eye Ophthalmic Four times a day for 10 days 01/29/2020 Not-Taking Ocuflox 0.3 % 1 drop into affected eye Ophthalmic Four times a day for 10 days 02/14/2021 Not-Taking Immunizations Vaccine Route Administration Date Status Comme nts [...] 12/15/2020 Refused Fluarix Quadrivalent Unknown 12/08/2021 Refused Social History Tobacco Use: Social History Observation Description Date Details (start date - stop date) Never Smoker NA - NA Tobacco Use/Smoking Question Answer Notes Patient is [...] Never (0 point) Points 2 Interpretation Negative Problems Problem Type SNOMED Code ICD Code Onset Dates Problem Status W/U Status Risk Notes Problem 738267952 Irritable bowel syndrome with diarrhea (K58.0) Active confirmed Problem Gout (27942851) Gout (M10.9) Active confirmed Problem 70576939 Gilbert syndrome (E80.4) Active confirmed Problem 94835239 Essential hypertension (I10) Active confirmed Problem 594877083 Prostate cancer (C61) Active confirmed Problem 86664181 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 Problem 156208021 Multiple falls (R29.6) Active confirmed Problem 82935554 Acute idiopathic gout of right foot (M10.071) Active confirmed Problem 23910467 LEÓN (obstructive sleep apnea) (G47.33) Active confirmed Problem 700872145 Idiopathic acute pancreatitis without infection or necrosis (K85.00) Active confirmed Problem Abdominal aortic atherosclerosis (I70.0) Active confirmed Problem 695443081 Acute gout of le ft ankle, unspecified cause (M10.9) Active confirmed Vital Signs Blood pressure diastolic 78 mm Hg 01/02/2024 Height 71.5 in 01/02/2024 Blood pressure systolic 118 mm Hg 01/02/2024 Weight 173 lbs 01/02/2024 BMI 23.79 kg/m2 01/02/2024 Encounters Encounter Location Date Provider Diagnosis Arturo Martinez MD [address] [place] [id number] 01/02/2024 Arturo Martinez Essential hypertensi on I10 and Gout M10.9 Arturo Martinez MD [address] [place] [id number] 06/26/2024 Arturo Martinez Blood tests for rout ine general physical examination Z00.00 ; Essential hypertension I10 and Abdominal aortic atherosclerosis I70.0 Arturo Martinez MD [address] [place] [id number] 07/01/2023 Arturo Martinez Multiple falls R29.6 ; Annual physical exam Z00.00 ; Gout M10.9 ; Essential hypertension I10 ; Colon cancer screening Z12.11 and Depression screening Z13.31 Arturo Martinez MD [address] [place] [id number] 08/08/2023 Arturo Martinez Chronic diarrhea K52 .9 and Irritable bowel syndrome with diarrhea K58.0 Arturo Martinez MD [address] [place] [id number] 09/05/2023 Arturo Martinez Irritable bowel syndrome with diarrhea K58.0 Arturo Martinez MD [address] [id number] 08/15/2023 Arturo Martinez MD [address] [place] [address] [id number] 08/15/2023 Arturo Martinez Irritable bowel syndrome with diarrhea K58.0 Arturo Martinez MD [address] [place] [address] [id number] 08/26/2023 Arturo Martinez MD [address] [place] [id number] 08/04/2023 Arturo Martinez Assessments Encounter Date Diagnosis (ICD Code) Assessment Notes Treatment Notes Treatment Clinical Notes Section Notes 01/02/2024 Essential hypertension (ICD-10 - I10) has pages of incredible readings will continue on the same 01/02/2024 Gout (ICD-10 - M10.9) is doing well with colchicine every other day is going to see guest services assistant in few weeks 06/26/2024 Blood tests for routine general physical examination (ICD-10 - Z00.00) 07/01/2023 Multiple falls (ICD-10 - R29.6) will observe for now 07/01/2023 Annual physical exam (ICD-10 - Z00.00) labs reviewed and discussed with patient 08/08/2023 Chronic diarrhea (ICD-10 - K52.9) patient verbalized understanding of medication and directions for use 08/08/2023 Irritable bowel syndrome with diarrhea (ICD-10 - K58.0) 09/05/2023 Irritable bowel syndrome with diarrhea (ICD-10 - K58.0) doing great on hyoscyamine, will continue current regiment 08/15/2023 Irritable bowel syndrome with diarrhea (ICD-10 - K58.0) 06/26/2024 Essential hypertension (ICD-10 - I10) 07/01/2023 Gout (ICD-10 - M10.9) had an attack and had to take prednisone, will continue current regiment 06/26/2024 Abdominal aortic atherosclerosis (ICD-10 - I70.0) 07/01/2023 Essential hypertension (ICD-10 - I10) stable, will continue current regiment 07/01/2023 Colon cancer screening (ICD-10 - Z12.11) guaiac negative 07/01/2023 Depression screening (ICD-10 - Z13.31) negative screen Plan Of Treatment Pending Test Test Name Order Date Electrocardiogram (EKG) 01/02/2019 Electrocardiogram (EKG) 11/17/2015 Electrocardiogram (EKG) 12/13/2016 Electrocardiogram (EKG) 12/20/2017 US LEG RT VENOUS DOPPLER 05/25/2019 Complete Blood Count Auto Diff 5 Comprehensive [place]. Panel Fast 5 Lipid Panel 06/26/2024 PSA,Total (Free>4and<10) 06/26/2024 UA ClnCatch+Micro w/rflx Cult 06/26/2024 Next Appt Details Provider Name:Arturo Knutson ier, 07/03/2024 02:30:00 PM, [address] [place] [address], [address], [place], [place], [phone], Insurance Providers Payer Name Payer Address Payer Phone Subscriber Number Group Number Insured Name Patient Relationship to Insured Coverage Start Date Coverage End Date [facility] [address] JORY DOWELL [id number] [phone] [id number] Alexsander Ruiz Self - patient is the insured Medical (General) History Medical History History ICD Code Hx Diverticulosis of colon COLONOSCOPY 09/25/2010 due in ten years w/ Dr. Michel
--- OUTSIDE RECORDS SUMMARY | 2024-06-26 10:38 | XMS_ITS | Encounter Summary ---
Author Organization [facility] Address [address] [place] [address] Phone Care Team Providers Care Dial Printer Name Role Phone Arturo Martinez MD Primary Care Provider [phone]- [phone] Encounter Details Date Type Department Care Team (Late st Contact Info) Description 03/14/2023 Documentation Only [facility] [address] [place] [address] [place], [place] [address] [place] [address] Social History Tobacco Use Types Packs/Day Years Used Date Smoking Tobacco: Unknown Sex and Gender Information Value Date Recorded Sex Assigned at Not on file Legal Sex Male 1:34 PM EDT Gender Identity Not on file Sexual Orientation Not on file documented as of this encounter Plan of Treatment Upcoming Encounters Date Type Department Care Team (Late st Contact Info) Description 03/12/2025 1:45 PM EST Office Visit [facility] [address] [place] [address] Alex Gamino MD [address] [place] [address] [place] [address] documented as of this encounter Visit Diagnoses Not on filedocumented in this encounter Care Teams Dial Printer Relationship Specialty Start Date End Date Arturo Martinez MD [address] [place] [address] [address] [place], [place] PCP - General Internal Medicine 05/08/19 documented as of this encounter
--- OUTSIDE RECORDS SUMMARY | 2024-06-26 10:38 | XMS_ITS | Encounter Summary ---
Author Organization [facility] Address [address] [place] [address] Phone Care Team Providers Care Valve Maker Name Role Phone Arturo Martinez MD Primary Care Provider [phone]- [phone] Encounter Details Date Type Department Care Team (Late Contact Info) Description 02/27/2021 Documentation Only [facility] [address] [place] [address] Alex Gamino MD [address] [place] [address] [place] [address] Social History Tobacco Use Types Packs/Day Years Used Date Smoking Tobacco: Unknown Sex and Gender Information Value Date Recorded Sex Assigned at Not on file Legal Sex Male 1:34 PM EDT Gender Identity Not on file Sexual Orientation Not on file COVID-19 Exposure Response Date Recorded In the last month, have you been in contact with someone who was confirmed or suspected to have Coronavirus / COVID-19? No / Unsure 02/20/2021 9:00 AM EST documented as of this encounter Plan of Treatment Upcoming Encounters Date Type Department Care Team (Late st Contact Info) Description 03/12/2025 1:45 PM EST Office Visit [facility] [address] [place] [address] Alex Gamino MD [address] [place] [address] [place] [address] documented as of this encounter Visit Diagnoses Not on filedocumented in this encounter Care Teams Valve Maker Relationship Specialty Start Date End Date Arturo Martinez MD [address] [place], [place] PCP - General Internal Medicine 05/08/19 documented as of this encounter
--- OUTSIDE RECORDS SUMMARY | 2024-06-26 10:38 | XMS_ITS | Encounter Summary ---
Author Organization [facility] Address [address] [place] [address] Phone Care Team Providers Care Agile Test Lead Name Role Phone Arturo Martinez MD Primary Care Provider [phone]- [phone] Encounter Details Date Type Department Care Team (Late Contact Info) Description 03/08/2022 Documentation Only [facility] [address] [place] [address] Alex Gamino MD [address] [place] [address] [place] [address] Social History Tobacco Use Types [...] Visit [facility] [address] [place] [address] Alex Gamino MD [address] [place] [address] [place] [address] documented as of this encounter Visit Diagnoses Not on filedocumented in this encounter Care Teams Agile Test Lead Relationship Specialty Start Date End Date Arturo Martinez MD [address] [place] [address] [address] [place] [address] PCP - General Internal Medicine 05/08/19 documented as of this encounter
--- OUTSIDE RECORDS SUMMARY | 2024-06-26 10:38 | XMS_ITS | Encounter Summary ---
Author Organization [facility] Address [address] [place] [address] Phone Care Team Providers Care All Source Intelligence Analyst Name Role Phone Arturo Martinez MD Primary Care Provider [phone]- [phone] Encounter Details Date Type Department Care Team (Late st Contact Info) Description 03/03/2024 Documentation Only [facility] [address] [place] [address] [place], [place] [address] [place] [address] Social History Tobacco Use Types [...] Visit [facility] [address] [place] [address] Alex Gamino MD [address] [place] [address] [place] [address] documented as of this encounter Visit Diagnoses Not on filedocumented in this encounter Care Teams All Source Intelligence Analyst Relationship Specialty Start Date End Date Arturo Martinez MD [address] [place] [address] [address] [place], [place] PCP - General Internal Medicine 05/08/19 documented as of this encounter
--- OUTSIDE RECORDS SUMMARY | 2024-06-26 10:38 | XMS_ITS ---
Author Organization [facility] Address [address] [place] [address] Care Team Providers Care Travograph Operator Name Role Phone Arturo Martinez MD Primary Care Provider Jayme Chavez Jr [phone] Encounters Encounter Location Date Provider Diagnosis [facility] [address] [place] [address] 08/15/2023 Jayme August Jr Plan Of Treatment Next Appt Details Provider Name:Jayme martin Jr, 08/13/2024 03:55:00 PM, [address], [address], [place], [address], Progress Notes * ETHAN OLSON RDOB:1960 (62 yo M)Acc No.[id number]:08/15/2023 Patient:?ETHAN OLSON :1960???Age:62 Y???Sex:Male Address:[address] [place] [address], [address] * true * Date:? Generated for Printi ollie/Tyrese/eTransmitting on:?06/26/2024 10:37 AM EDT
--- OUTSIDE RECORDS SUMMARY | 2024-06-26 10:38 | XMS_ITS | Patient Health Record ---
Author Organization [facility] Address [address] [place] [address] Care Team Providers Care Hairspring Adjuster Name Role Phone Arturo Martinez MD Primary Care Provider Jayme Chavez Jr Unavailable [phone] Allergies No Known Allergies Reason For Referral Referring Provider First Name Arturo Referring Provider Last Name Juan Referring Provider Speciality Internal M edicine Referred Organization [facility] Referred Provider Jayme August Jr Referred Address [address] [facility],[place], [place],[address], Referred Provider Specialty Gastroentero logy General Notes Ashwini Terrazas 024 11:13:46 AM EDT > verbal information given to Jeri from Arleen at Dr. Martinez's office Referral Priority Routine Medications Medication SIG (Take, Route, Frequency, Duration) Notes Start Date End Date Status Hyoscyamine Active Vitamin C Active Carvedilol Active Allopurinol Active Lisinopril Active Metamucil Active Colchicine Active Social History Tobacco Use: Social History Observation [...] Never (0 point) Points 0 Interpretation Negative Problems Problem Type SNOMED Code ICD Code Onset Dates Problem Status W/U Status Risk Notes Problem 065506496 Colon cancer screening (Z12.11) Active confirmed Problem 784104579 Irritable bowel syndrome with diarrhea (K58.0) Active confirmed Vital Signs Blood pressure diastolic 00 mm Hg 08/15/2023 Height 5 ft 9 in in 08/15/2023 Blood pressure systolic 00 mm Hg 08/15/2023 Weight 171 lbs 08/15/2023 BMI 25.25 kg/m2 08/15/2023 Encounters Encounter Location Date Provider Diagnosis [facility] [address] [place] [phone] 08/15/2023 Jayme August Jr Irritable bowel syndrome with diarrhea K58.0 and Colon cancer screening Z12.11 [facility] [address] [place] [phone] 08/15/2023 Jayme Augsut Jr Assessments Encounter Date Diagnosis (ICD Code) Assessment Notes Treatment Notes Treatment Clinical Notes Section Notes 08/15/2023 Colon cancer screening (ICD-10 - Z12.11) Currently, he is doing well. We encouraged him to follow a high-fiber diet. He will let us know how he's doing with the hyoscyamine a month. We discussed side effects of this medication. If he's doing well he can take it for several months and then stop it to see how he does. He is up-to-date on colon cancer screening. Today's visit was 60 minutes including gathering history, performing examination, and reviewing/obtai michele outside data, as well as formulating a treatment plan. 08/15/2023 Irritable bowel syndrome with diarrhea (ICD-10 - K58.0) Irritable bowel syndrome material was printed Currently, he is doing well. We encouraged him to follow a high-fiber diet. He will let us know how he's doing with the hyoscyamine a month. We discussed side effects of this medication. If he's doing well he can take it for several months and then stop it to see how he does. He is up-to-date on colon cancer screening. Today's visit was 60 minutes including gathering history, performing examination, and reviewing/obtai michele outside data, as well as formulating a treatment plan. Plan Of Treatment Next Appt Details Provider Name:Jayme martin Jr, 08/13/2024 03:55:00 PM, [address], [address], [place], [address], Insurance Providers Payer Name Payer Address Payer Phone Subscriber Number Group Number Insured Name Patient Relationship to Insured Coverage Start Date Coverage End Date [employer] [address] [place] [phone] [id number] ETHAN OLSON Self - patient is the insured Medical (General) History Medical History History ICD Code hypertension prostate cancer Gout pancreatitis 04/2019, ? secondary to irb esartan past hx of kidney stone gilberts syndrome basil cell carcinoma diverticulosis Surgical History Surgery Date(Month/Year) Prostatectomy Left inguinal herniorrhaphy
--- OUTSIDE RECORDS SUMMARY | 2024-06-26 10:38 | XMS_ITS ---
Author Organization [facility] Address [address] [place] [address] Care Team Providers Care Road Monkey Name Role Phone Arturo Martinez MD Primary Care Provider Jayme Chavez Jr [phone] Allergies No Known Allergies REASON FOR VISIT ibs with diarrhea Medications Medication SIG (Take, Route, Frequency, Duration) Notes Start Date End Date Status Vitamin C Active Allopurinol Active Lisinopril Active Metamucil Active Colchicine Active Hyoscyamine Active Carvedilol Active Social History Tobacco Use: Social History [...] Problem Status W/U Status Risk Notes Problem 277395851 Irritable bowel syndrome with diarrhea (K58.0) Active confirmed Problem 570037002 Colon cancer screening (Z12.11) Active confirmed Vital Signs Blood pressure systolic 00 mm Hg 08/15/19 24 Blood pressure diastolic 00 mm Hg 024 Height 5 ft 9 in in 08/15/2023 Weight 171 lbs 08/15/2023 BMI 25.25 kg/m2 08/15/2023 Encounters Encounter Location Date Provider Diagnosis [facility] [address] [place] [address] 08/15/2023 Jayme August Jr Irritable bowel syndrome with diarrhea K58.0 and Colon cancer screening Z12.11 Assessments Encounter Date Diagnosis (ICD Code) Assessment Notes Treatment Notes Treatment Clinical Notes Section Notes 08/15/2023 Irritable bowel syndrome with diarrhea [...] well as formulating a treatment plan. 08/15/2023 Colon cancer screening (ICD-10 - Z12.11) [...] formulating a treatment plan. Plan Of Treatment Treatment Notes Assessment Notes Irritable bowel syndrome with diarrhea I rritable bowel syndrome material was printed Next Appt Details Follow Up: 1 Year, Reason: Provider Name:Jayme martin Jr, 08/13/2024 03:55:00 PM, [address], [address], [place], [address], Progress Notes * ETHAN OLSON RDOB:1960 (62 yo M)Acc No.[id number]:08/15/2023 Progress Notes Patient:?ETHAN OLSON Provider:?Jayme August MD :1960???Age:62 Y???Sex:Male Eric e:08/15/2023 Address:[address] [place] [address] , [id number] Pcp:Arturo Martinez MD Subjective: * Chief Complaints: * ???1. Ibs with diarrhea. * HPI: ???New symptom(s):? Ethan is a pleasant 62-year-old man seen today in consultation. He has a history of irritable bowel syndrome with diarrhea predominance. He reports that in 2000 he underwent colonoscopy. His most recent exam was in 2021 in December with removal of 3 polyps one of which was a tubular adenoma three-year followup was recommended. He has small internal hemorrhoids and a few diverticuli as well. We reviewed this today. ?Since his colonoscopy he describes having issues with his bowels. He also had a hernia repair, left inguinal and was diagnosed with gout and started on allopurinol. Currently he is on colchicine and allopurinol and last had had a gout attack in April of this year. Initially, he reported some a.m. constipation and then loose stools with a particularly bad ordered. He change his diet and avoids red meat. He drinks alcohol rarely. He describes stools as loose, smelling, with associated rectal urgency. He frequently will pass gas. He was prescribed Metamucil which seem to help his symptoms. He just started taking hyoscyamine 0.375 mg last week, prescribed by his primary care provider. * ROS:?General/Constitutional:?Change in appetite?denies.?Fatigue?denies.?ENT:?Patient denies?difficulty swallowing.?Respiratory:?Patient denies?shortness of breath.?Cardiovascular:?Patient denies?chest pain.?Gastrointestinal:?Comments?See HPI for details.?Genitourinary:?Difficulty urinating?denies.?Incontinence?denies.?Musculoskeletal:?Patient denies?muscle aches.?Skin:?Patient denies?pruritis.?Neurologic:?Patient denies?low back pain.?Psychiatric:?Patient denies?mental or physical abuse.? * Medical History:?Hypertensio n, Prostate cancer, Gout, Pancreatitis 04/2019, ? secondary to irbesartan, Past hx of kidney stone, [place] syndrome, Basil cell carcinoma, Diverticulosis. * Surgical History:?Prostatect renata , Left inguinal herniorrhaphy . * Family History:?Father: dece ased, lung cancer .?Mother: , diagnosed with Heart disease.? no known hx of colon cancer polyps or liver ds. * Social History:?Tobacco Use:?Tobacco Use/Smoking?Patient is a?nonsmoker.?Drugs/Alcohol:?Alcohol Screen?Did you have a drink containing alcohol in the past year??Yes,?How often did you have a drink containing alcohol in the past year??Never (0 point),?How many drinks did you have on a typical day when you were drinking in the past year??1 or 2 drinks (0 point),?How often did you have 6 or more drinks on one occasion in the past year??Never (0 point),?Points?0,?Interpretation?Negative.?Miscellaneous:?Marital status: . 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 * Medications:?Taking Colchici ne , Taking Metamucil , Taking Hyoscyamine , Taking Carvedilol , Taking Vitamin C , Taking Lisinopril , Taking Allopurinol , Medication List reviewed and reconciled with the patient * Allergies:?N.K.D.A. Objective: * Vitals:?Wt: 171 lbs, Ht: 5 f t 9 in, BMI:25.25 Index, BP: 00/00 mm Hg. * Examination: ???General Examination: ?GENERAL APPEARANCE:?in no acute distress.?HEAD:?normocephalic.?EYES:?sclera non-icteric.?ORAL CAVITY:?mucosa moist.?NECK/THYROID:?no lymphadenopathy.?SKIN:?anicteric.?HEART:?S1, S2 normal, no murmurs.?LUNGS:?clear to auscultation bilaterally.?CHEST:?normal shape and expansion.?ABDOMEN:?soft, nontender, nondistended, bowel sounds present, no organomegaly .?EXTREMITIES:?no clubbing, cyanosis, or edema.?PSYCH:?cognitive function intact.? Assessment: * Assessment: 1.?Irritable bowel syndrome with diarrhea - K58.0 (Primary)?2.?Colon cancer screening - Z12.11? Currently, he is doing well. We encouraged [...] minutes including gathering history, performing examination, and reviewing/obtaining outside data, as well as formulating a treatment plan. Plan: * Treatment: * Procedure Codes:?3017F COLOR ECTAL CA SCREEN DOC REV, G9903 Pt scrn tbco id as non user, G9744 PATIENT NOT ELIG D/T ACTIVE DX HTN * Preventive Medicine:? ??Counseling:?Care goal follow-up plan:?Above Normal BMI Follow-up?Giving encouragement to exercise,?BMI management provided?Yes.? * Follow Up:?1 Year * * Sign off status: Completed true * Provider:?Jayme August MD Date:?0 08/15/2023 Generated for Nitish levin/Tyrese/eTaashishitting on:?06/26/2024 10:38 AM EDT History and Physical Notes * HPI (History of Present Illness) Category Sub-Category Detail Notes Category Not es New symptom(s) Ethan is a pleasant 62-year-old man seen today in consultation. He has a history of irritable bowel syndrome with diarrhea predominance. He reports that in 2000 he underwent colonoscopy. His most recent exam was in 2021 in December with removal of 3 polyps one of which was a tubular adenoma three-year followup was recommended. He has small internal hemorrhoids and a few diverticuli as well. We reviewed this today. Since his colonoscopy he describes having issues with his bowels. He also had a hernia repair, left inguinal and was diagnosed with gout and started on allopurinol. Currently he is on colchicine and allopurinol and last had had a gout attack in April of this year. Initially, he reported some a.m. constipation and then loose stools with a particularly bad ordered. He change his diet and avoids red meat. He drinks alcohol rarely. He describes stools as loose, smelling, with associated rectal urgency. He frequently will pass gas. He was prescribed Metamucil which seem to help his symptoms. He just started taking hyoscyamine 0.375 mg last week, prescribed by his primary care provider. Examination Category Sub-Category Detail Notes Category Not es General Examination GENERAL APPEARANCE: in no acute di stress HEAD: normocephalic EYES: sclera non-icteric NECK/THYROID: no lymphadenopathy HEART: S1, S2 normal, no mu rmurs CHEST: normal shape and exp ansion LUNGS: clear to auscultatio n bilaterally ABDOMEN: soft, nontender, non distended, bowel sounds present, no organomegaly SKIN: anicteric EXTREMITIES: no clubbing, cyanosi s, or edema PSYCH: cognitive function i ntact ORAL CAVITY: mucosa moist
--- OUTSIDE RECORDS SUMMARY | 2024-06-26 10:38 | XMS_ITS | Encounter Summary ---
Author Organization [facility] Address [address] [place] [address] Phone Care Team Providers Care Charge Account Clerk Name Role Phone Arturo Martinez MD Primary Care Provider [phone] Encounter Details Date Type Department Care Team (Late Contact Info) Description 02/23/2021 Documentation Only [facility] [address] [place] [address] Alex Gamino MD [address] [place] [address] [place] [address] Social History Tobacco Use Types [...] Visit [facility] [address] [place] [address] Alex Gamino MD [address] [place] [address] [place] [address] documented as of this encounter Visit Diagnoses Not on filedocumented in this encounter Care Teams Charge Account Clerk Relationship Specialty Start Date End Date Arturo Martinez MD [address] [place], [place] PCP - General Internal Medicine 05/08/19 documented as of this encounter
--- OUTSIDE RECORDS SUMMARY | 2024-06-26 10:38 | XMS_ITS | Clinical Summary ---
Author Organization [facility], Address [address] [place] [address] Phone Care Team Providers Care Sprinkler Driver Name Role Phone Arturo Martinez MD Primary Care Provider [phone] Allergies Active Allergy Reactions Criticality Noted Date Comments Hydrochlorothiazide 06/15/2019 Medications colchicine 0.6 MG tablet TAKE 1 TABLET BY MOUTH TWICE A DAY FOR 14 DAYS 05/25/2019 Active carvedilol CR (COREG CR) 40 MG 24 hr capsule 05/08/2019 Activ e Ascorbic Acid (VITAMIN C) 500 MG tablet Take 500 mg by mouth 1 (one) time each day Active acetaminophen (TYLENOL) 500 MG tablet Take by mouth every 6 (six) hours if needed for mild pain Active lisinopril 10 MG tablet Take 10 mg by mouth 1 (one) time each day Active allopurinol (ZYLOPRIM) 300 MG tablet Take 300 mg by mouth 1 (one) time each day For 30 days 01/04/2022 Active Active Problems Problem Noted Date Diagnosed Date Gout 06/15/2019 Hypertension 06/15/2019 Social History Tobacco Use Types Packs/Day Years Used Date Smoking Tobacco: Unknown Sex and Gender Information Value Date Recorded Sex Assigned at Not on file Legal Sex Male 1:34 PM EDT Gender Identity Not on file Sexual Orientation Not on file Last Filed Vital Signs Vital Sign Reading Time Taken Comments Blood Pressure 128/84 03/02/2024 2:34 PM EST Pulse - - Temperature - - Respiratory Rate - - Oxygen Saturation - - Inhaled Oxygen Concentration - - Weight - - Height - - Body Mass Index - - Plan of Treatment Upcoming Encounters Date Type Department Care Team (Late st Contact Info) Description 03/12/2025 1:45 PM EST Office Visit [facility], [address] [place] [address] Alex Gamino MD [address] [place] [address] Health Maintenance Due Date Last Done Comments Pneumococcal Vaccine: 50+ Ye ars (1 of 2 - PCV) 12/24/1978 Colorectal Cancer Screening: Annual FOBT 12/24/2008 Colorectal Cancer Screening: Colonoscopy 12/24/2008 Colorectal Cancer Screening: Sigmoidoscopy 12/24/2008 Influenza Vaccine (Season Ended) 2024 Hepatitis B Vaccine Aged Out No longe r eligible based on patient's age to complete this topic Insurance Care Teams Sprinkler Driver Relationship Specialty Start Date End Date Arturo Martinez MD [address] [place] [address] [id number] [place], [place] PCP - General Internal Medicine 05/08/19
--- OUTSIDE RECORDS SUMMARY | 2024-06-26 10:38 | XMS_ITS | Encounter Summary ---
Author Organization [facility] Address [address] [place] [address] Phone Care Team Providers Care Countersinker Balance Screw Hole Name Role Phone Arturo Martinez MD Primary Care Provider [phone]- [phone] Encounter Details Date Type Department Care Team (Late st Contact Info) Description 03/19/2024 Documentation Only [facility] [address] [place] [address] Julienne Padgett[place]ARILL[place], [place] [address] [place] [address] Social History Tobacco Use Types [...] [facility] [address] [place] [address] Alex Gamino MD [address] [place] [address] [place] [address] documented as of this encounter Visit Diagnoses Not on filedocumented in this encounter Care Teams Countersinker Balance Screw Hole Relationship Specialty Start Date End Date Arturo Martinez MD [address] [place] [address] [address] [place], [place] PCP - General Internal Medicine 05/08/19 documented as of this encounter
--- OUTSIDE RECORDS SUMMARY | 2024-06-26 10:38 | XMS_ITS ---
Author Organization Arturo Martinez MD Address [address] [place] [phone] Care Team Providers Care Independent Marketing Consultant Name Role Phone Arturo Martinez Primary Care Provider [phone] Allergies Allergen (clinical drug ingredient) Drug/Non Drug Allergy documented on EMR Reaction Allergy Type Onset Date Status irbesartan Irbesartan pancreatiies Drug Allergy Active hydrochlorothiazide Hydrochlorothiazide cramps a nd elevted bun and cr Drug Allergy Active REASON FOR VISIT 4 week Medications Medication SIG (Take, Route, Frequency, Duration) [...] a day for 10 days 02/14/2021 Not-Taking Vital Signs Blood pressure systolic 112 mm Hg 09/05/19 24 Blood pressure diastolic 70 mm Hg 024 Height 71.5 in 09/05/2023 Weight 173 lbs 09/05/2023 BMI 23.79 kg/m2 09/05/2023 Encounters Encounter Location Date Provider Diagnosis Arturo Martinez MD [address] [place] [address] [address] [place] [phone] 09/05/2023 Arturo Martinez Irritable bowel syndrome with diarrhea K58.0 Assessments Encounter Date Diagnosis (ICD Code) Assessment Notes Treatment Notes Treatment Clinical Notes Section Notes 09/05/2023 Irritable bowel syndrome with diarrhea (ICD-10 - K58.0) doing great on hyoscyamine, will continue current regiment Plan Of Treatment Medication Medication Name Sig Start Date Stop Date Notes Hyoscyamine Sulfate ER 0.375 MG 1 tablet Orally every 12 hrs 08/08/2023 Metamucil Free & Natural 43 % as directed Orally Treatment Notes Assessment Notes Irritable bowel syndrome with diarrhea d oing great on hyoscyamine, will continue current regiment Next Appt Details Provider Name:Arturo rasheed, 07/03/2024 02:30:00 PM, [address] [place] [address] Drive, [address], [place], [place], [phone], Progress Notes * Alexsander RUIZ RDOB:1960 (62 yo M)Acc No.[id number]:09/05/2023 Progress Notes Patient:?Alexsander Ruiz Provider:?Arturo Martinez MD :1960???Age:62 Y???Sex:Male Eric e:09/05/2023 Address:[address] [place], [place] [id number] Subjective: * Chief Complaints: * ???4 week * HPI: ???Symptom(s):? patient is a 62 yo male has started hyoscyamine. * ROS:?General/Constitutional:?Denies?Chills.?Denies?Fatigue.?Denies?Fever.?Denies?Headache.?ENT:?Patient denies?decreased sense of smell , any loss of taste , sore throat.?Denies?Sore throat.?Respiratory:?Denies?Cough.?Denies?Shortness of breath at rest.?Denies?Shortness of breath with exertion.?Gastrointestinal:?Denies?Diarrhea.?Denies?Nausea.?Musculoskeletal:?Patient denies?muscle aches.?Peripheral Vascular:?Patient denies?red and blue toes.? * Medical History:? * Surgical History:? * Hospitalization/Major Diagno stic Procedure:? * Medications:?TakingMetamucil Free & Natural 43 % Powder as directed Orally Vitamin C 500 MG Capsule as directed Orally Colchicine 0.6 MG Tablet 1 tablet Orally dailyLisinopril 10 MG Tablet TAKE 1 TABLET BY MOUTH EVERY DAY Carvedilol Phosphate ER 40 MG Capsule Extended Release 24 Hour TAKE 1 CAPSULE BY MOUTH WITH FOOD ONCE DAILY Allopurinol 300 MG Tablet TAKE 1 TABLET BY MOUTH EVERY DAY FOR 30 DAYS Hyoscyamine Sulfate ER 0.375 MG Tablet Extended Release 12 Hour 1 tablet Orally every 12 hrsTaking Metamucil Free & Natural 43 % Powder as directed Orally Taking Vitamin C 500 MG Capsule as directed Orally Taking Colchicine 0.6 MG Tablet 1 tablet Orally dailyTaking Lisinopril 10 MG Tablet TAKE 1 TABLET BY MOUTH EVERY DAY Taking Carvedilol Phosphate ER 40 MG Capsule Extended Release 24 Hour TAKE 1 CAPSULE BY MOUTH WITH FOOD ONCE DAILY Taking Allopurinol 300 MG Tablet TAKE 1 TABLET BY MOUTH EVERY DAY FOR 30 DAYS Taking Hyoscyamine Sulfate ER 0.375 MG Tablet Extended Release 12 Hour 1 tablet Orally every 12 hrsNot-Taking/PRNpredniSONE 20 MG Tablet 1 tablet Orally Once a dayCelecoxib 200 MG Capsule 1 capsule with food Orally once a day for a week before and after allopurinolColchicine 0.6 MG Tablet 1 tablet Orally twice a dayOcuflox 0.3 % Solution 1 drop into affected eye Ophthalmic Four times a dayOcuflox 0.3 % Solution 1 drop into affected eye Ophthalmic Four times a dayIbuprofen 200 MG Tablet 1 tablet with food or milk as needed Orally Three times a dayTobraDex 0.3-0.1 % Ointment APPLY TO BOTH EYES DAILY AT BEDTIME Ophthalmic Medication List reviewed and reconciled with the patientNot-Taking/PRN predniSONE 20 MG Tablet 1 tablet Orally Once a dayNot-Taking/PRN Celecoxib 200 MG Capsule 1 capsule with food Orally once a day for a week before and after allopurinolNot-Taking/PRN Colchicine 0.6 MG Tablet 1 tablet Orally twice a dayNot-Taking/PRN Ocuflox 0.3 % Solution 1 drop into affected eye Ophthalmic Four times a dayNot-Taking/PRN Ocuflox 0.3 % Solution 1 drop into affected eye Ophthalmic Four times a dayNot-Taking/PRN Ibuprofen 200 MG Tablet 1 tablet with food or milk as needed Orally Three times a dayNot-Taking/PRN TobraDex 0.3-0.1 % Ointment APPLY TO BOTH EYES DAILY AT BEDTIME Ophthalmic Medication List reviewed and reconciled with the patient * Allergies:?Hydrochlorothiazi de: cramps and elevted bun and crIrbesartan: pancreatiiesyes[Allergies Verified] Objective: * Vitals:?Ht: 71.5, Wt:173, BM I:23.79, BP:112/70. * Examination: ???General Examination: ?GENERAL APPEARANCE:? alert, well hydrated, in no distress .?HEAD:? normocephalic.?SKIN:? good turgor.?HEART:? regular rate and rhythm, no murmurs, rubs, gallops.?LUNGS:? no wheezes, rales, rhonchi, no wheezes, rales, rhonchi.? Assessment: * Assessment: 1.?Irritable bowel syndrome with diarrhea - K58.0 (Primary)? Plan: * Treatment: * Procedure Codes:? * * Sign off status: Completed true * Provider:?Arturo Martinez MD Date:?0 09/05/2023 Generated for Nitish levin/Tyrese/eTransmitting on:?06/26/2024 10:37 AM EDT History and Physical Notes * HPI (History of Present Illness) Category Sub-Category Detail Notes Category Not es Symptom(s) patient is a 62 yo male has started hyoscyamine Examination Category Sub-Category Detail Notes Category Not es General Examination GENERAL APPEARANCE: alert, w ell hydrated, in no distress HEAD: normocephalic HEART: regular rate and rhy thm, no murmurs, rubs, gallops LUNGS: no wheezes, rales, r honchi, no wheezes, rales, rhonchi SKIN: good turgor
--- OUTSIDE RECORDS SUMMARY | 2024-06-26 10:38 | XMS_ITS ---
Author Organization Arturo Martinez MD Address [address] [place] [phone] Care Team Providers Care Combine Driver Name Role Phone Arturo Martinez Primary Care Provider [phone] Results Component Value Reference Range Notes Complete Blood Count Auto Di ff (Not yet reviewed by provider) Interpretation: Performing Lab:[facility], [address] [place] [phone] Notes/Report: White Blood Count 5.9 4.8-10.8 X10*3/uL [...] (Not yet reviewed by provider) Interpretation: Performing Lab:[facility], [address] [place] [phone] Notes/Report: Urine, Clean Catch Color Urine Yellow Appearance Urine Clear PH 5.5 5.0-9.0 Glucose Urine UA Negative Negative mg/dL Urine Blood Negative Negative Specific [place] - Urine 1.020 1.005-1.025 Urine Protein Negative [...] Arturo Martinez MD [address] [place], [place] [phone] 06/26/2024 Arturo Bombardier Blood tests for rout ine general physical examination Z00.00 ; Essential hypertension I10 and Abdominal aortic atherosclerosis I70.0 Assessments Encounter Date Diagnosis (ICD Code) Assessment Notes Treatment Notes Treatment Clinical Notes Section Notes 06/26/2024 Blood tests for routine general physical examination (ICD-10 - Z00.00) 06/26/2024 Essential hypertension (ICD-10 - I10) 06/26/2024 Abdominal aortic atherosclerosis (ICD-10 - I70.0) Plan Of Treatment Pending Test Test Name Order Date Complete Blood Count Auto Diff Comprehensive [place]. Panel Fast Lipid Panel 06/26/2024 PSA,Total (Free>4and<10) 06/26/2024 UA ClnCatch+Micro w/rflx Cult 06/26/2024 Next Appt Details Provider Name:Arturo Knutson ier, 07/03/2024 02:30:00 PM, [address] [facility], [address], [place], [place], [phone], Progress Notes * Alexsander RUIZ RDOB:1960 (63 yo M)Acc No.[id number]:06/26/2024 Progress Note Patient:?Alexsander RUIZ Provider:?Arturo Martinez MD :1960???Age:63 Y???Sex:Male Eric e:06/26/2024 Address:[address] [place], [place] [id number] Subjective: * Chief Complaints: * ???1. FASTING LABS. * Medical History:? Objective: * Vitals:? Assessment: * Assessment: 1.?Blood tests for routine g eneral physical examination - Z00.00 (Primary)???2.?Essential hypertension - I10???3.?Abdominal aortic atherosclerosis - I70.0??? Plan: * Treatment: 2.?Essential hypertension?LAB: Complete Blood Count Auto Diff (Collection Date & Time - 06/26/2024 07:30 AM) ?LAB: Comprehensive [place]. Panel Fast ?LAB: Lipid Panel ?LAB: PSA,Total (Free>4and<10) ?LAB: UA ClnCatch+Micro w/rflx Cult (Collection Date & Time - 06/26/2024 07:30 AM) 3.?Abdominal aortic atherosc lerosis?LAB: Complete Blood Count Auto Diff (Collection Date & Time - 06/26/2024 07:30 AM) ?LAB: Comprehensive [place]. Panel Fast ?LAB: Lipid Panel ?LAB: PSA,Total (Free>4and<10) ?LAB: UA ClnCatch+Micro w/rflx Cult (Collection Date & Time - 06/26/2024 07:30 AM) * Procedure Codes:?89629 VENIP UNCT, ROUTINE* * * The named appointment provid er may or may not be the originator of this progress note, and it is not deemed complete until electronically signed by the appointment provider. Sign off status: Pending * Provider:?Arturo Martinez MD Date:?0 06/26/2024 Generated for Nitish levin/Tyrese/Robertsmitting on:?06/26/2024 10:38 AM EDT
--- OUTSIDE RECORDS SUMMARY | 2024-06-26 10:39 | XMS_ITS ---
Author Organization Arturo Martinez MD Address [address] [place] [phone] Care Team Providers Care Field Sampling Technician Name Role Phone Arturo Martinez Primary Care Provider Allergies Allergen (clinical drug ingredient) Drug/Non Drug Allergy documented on EMR Reaction Allergy Type Onset Date Status irbesartan Irbesartan pancreatiies Drug Allergy Active hydrochlorothiazide Hydrochlorothiazide cramps a nd elevted bun and cr Drug Allergy Active REASON FOR VISIT 6 MO F/U BP Medications Medication SIG (Take, Route, Frequency, Duration) [...] 02/14/2021 Not-Taking Vital Signs Blood pressure systolic 118 mm Hg 01/02/20 24 Blood pressure diastolic 78 mm Hg 024 Height 71.5 in 01/02/2024 Weight 173 lbs 01/02/2024 BMI 23.79 kg/m2 01/02/2024 Encounters Encounter Location Date Provider Diagnosis Arturo Martinez MD [address] [place] [address] [place] [phone] 01/02/2024 Arturo Martinez Essential hypertension I10 and Gout M10.9 Assessments Encounter Date Diagnosis (ICD Code) Assessment Notes Treatment Notes Treatment Clinical Notes Section Notes 01/02/2024 Essential hypertension (ICD-10 - I10) has pages of incredible readings will continue on the same 01/02/2024 Gout (ICD-10 - M10.9) is doing well with colchicine every other day is going to see district attorney in few weeks Plan Of Treatment Treatment Notes Assessment Notes Essential hypertension has pages of incr edible readings will continue on the same Gout is doing well with c olchicine every other day is going to see district attorney in few weeks Next Appt Details Provider Name:Arutro rasheed, 07/03/2024 02:30:00 PM, [address] [place] [address], [address], [place], [place], [phone], Progress Notes * Alexsander RUIZ RDOB:1960 (63 yo M)Acc No.[id number]:01/02/2024 Progress Notes Patient:?Alexsander RUIZ Provider:?Arturo Martinez MD :1960???Age:63 Y???Sex:Male Eric e:01/02/2024 Address:[address] [place], [place] [id number] Subjective: * Chief Complaints: * ???1. 6 MO F/U BP. * HPI: ???Symptom(s):? patient is a 63 yo male here for 6 month follow up visit. * ROS:?General/Constitutional:?Denies?Chills.?Denies?Fatigue.?Denies?Fever.?Denies?Headache.?ENT:?Patient denies?decreased sense of smell , any loss of taste , sore throat.?Denies?Sore throat.?Respiratory:?Denies?Cough.?Denies?Shortness of breath at rest.?Denies?Shortness of breath with exertion.?Gastrointestinal:?Denies?Diarrhea.?Denies?Nausea.?Musculoskeletal:?Patient denies?muscle aches.?Peripheral Vascular:?Patient denies?red and blue toes.? * Medical History:?Hx Divertic ulosis of colon, COLONOSCOPY 09/25/2010 due in ten years w/Dr. Michel. * Medications:?Taking Vitamin C 500 MG Capsule as directed Orally , Taking Colchicine 0.6 MG Tablet 1 tablet Orally QOD , Taking Lisinopril 10 MG Tablet TAKE 1 TABLET BY MOUTH EVERY DAY , Taking Carvedilol Phosphate ER 40 MG Capsule Extended Release 24 Hour TAKE 1 CAPSULE BY MOUTH WITH FOOD ONCE DAILY , Taking Allopurinol 300 MG Tablet TAKE 1 TABLET BY MOUTH EVERY DAY FOR 30 DAYS , Taking Metamucil Free & Natural 43 % Powder as directed Orally , Taking Hyoscyamine Sulfate ER 0.375 MG Tablet Extended Release 12 Hour 1 tablet Orally every 12 hrs , Not-Taking/PRN predniSONE 20 MG Tablet 1 tablet Orally Once a day , Not-Taking/PRN Celecoxib 200 MG Capsule 1 capsule with food Orally once a day for a week before and after allopurinol , Not-Taking/PRN Colchicine 0.6 MG Tablet 1 tablet Orally twice a day , Not-Taking/PRN Ocuflox 0.3 % Solution 1 drop into affected eye Ophthalmic Four times a day , Not-Taking/PRN Ocuflox 0.3 % Solution 1 drop into affected eye Ophthalmic Four times a day , Not-Taking/PRN Ibuprofen 200 MG Tablet 1 tablet with food or milk as needed Orally Three times a day , Not-Taking/PRN TobraDex 0.3-0.1 % Ointment APPLY TO BOTH EYES DAILY AT BEDTIME Ophthalmic , Medication List reviewed and reconciled with the patient * Allergies:?Hydrochlorothiazi de: cramps and elevted bun and cr, Irbesartan: pancreatiies. Objective: * Vitals:?Ht: 71.5, Wt:173, BM I:23.79, BP:118/78. * Examination: ???General Examination: ?GENERAL APPEARANCE:?alert, well hydrated, in no distress.?HEAD:?normocephalic.?HEART:?regular rate and rhythm , no murmurs, rubs, gallops.?LUNGS:?no wheezes, rales, rhonchi , good air movement.? Assessment: * Assessment: 1.?Essential hypertension - I10???2.?Gout - M10.9??? Plan: * Treatment: 2.?Gout? Notes: is doing well with colchicine every other day is going to see district attorney in few weeks?? * * The named appointment provid er may or may not be the originator of this progress note, and it is not deemed complete until electronically signed by the appointment provider. Sign off status: Pending * Provider:?Arturo Martinez MD Date:?1 03/03/2023 Generated for Nitish levin/Tyrese/Cubaransmitting on:?06/26/2024 10:38 AM EDT History and Physical Notes * HPI (History of Present Illness) Category Sub-Category Detail Notes Category Not es Symptom(s) patient is a 63 yo male here for 6 month follow up visit. Examination Category Sub-Category Detail Notes Category Not es General Examination GENERAL APPEARANCE: alert, w ell hydrated, in no distress HEAD: normocephalic HEART: regular rate and rhy thm , no murmurs, rubs, gallops LUNGS: no wheezes, rales, r honchi , good air movement
[2024-06-26 10:50] LABS: Alanine Aminotransferase 55 U/L (0-40); Albumin Level 4.2 g/dL (3.5-5.0); Alkaline Phosphatase 75 U/L (39-117); Anion Gap 9 (12-20); Aspartate Amino Transferase 38 U/L (5-37); Bilirubin Total 1.1 mg/dL (0.0-1.0); Blood Urea Nitrogen 15 mg/dL (9-16); Carbon Dioxide 26 mmol/L (22-29); Chloride 108 mmol/L (96-108); Cholesterol 138 mg/dL (<200); Estimated Glomerular Filt Rate 60; Glucose Fasting 97 mg/dL (60-99); HDL Cholesterol 49 mg/dL (>40); LDL Cholesterol Calculated 81 mg/dL (<100); Potassium 4.7 mmol/L (3.3-5.1); Sodium 138 mmol/L (135-145); Total Protein 6.9 g/dL (6.5-8.0); Triglycerides 44 mg/dL (<150)
[2024-06-26 11:08] LABS: PSA,Total (Free>4and<10) < 0.10 ng/mL (0.00-4.00)
== END 2024-06-26 10:09 | disposition home or self-care (01) ==
LOC: HO.LNP 10:08
PROVIDERS: Visit Provider Internal Medicine
DX: Z00.00 Encounter for general adult medical examination without abnormal findings (principal); Z12.5 Encounter for screening for malignant neoplasm of prostate; I10 Essential (primary) hypertension; I70.0 Atherosclerosis of aorta
CPT/HCPCS: 80053; 80061; 81001; 84153; 85025

== ENCOUNTER 2024-07-31 10:11 | Outpatient (REF) | payer OTHER, SELFPAY ==
[2024-07-31 10:50] LABS: Alanine Aminotransferase 48 U/L (0-40); Albumin Level 4.5 g/dL (3.5-5.0); Alkaline Phosphatase 73 U/L (39-117); Aspartate Amino Transferase 32 U/L (5-37); Bilirubin Direct 0.4 mg/dL (0.0-0.5); Bilirubin Total 1.2 mg/dL (0.0-1.0)
--- OUTSIDE RECORDS SUMMARY | 2024-07-31 11:01 | XMS_ITS | Clinical Summary ---
Author Organization [facility], Address [address] [place] [address] Phone Care Team Providers Care Equipment Detailer Name Role Phone Arturo Martinez MD Primary Care Provider [phone] Allergies Active Allergy Reactions Criticality Noted Date [...] Visit [facility], [address] [place] [address] Alex Gamino MD [address] [place] [address] Health Maintenance Due Date Last Done Comments Pneumococcal Vaccine: 50+ Ye ars (1 of 2 - PCV) 12/24/1978 Colorectal Cancer Screening: Annual FOBT 12/24/2008 Colorectal Cancer Screening: Colonoscopy 12/24/2008 Colorectal Cancer Screening: Sigmoidoscopy 12/24/2008 Influenza Vaccine (Season Ended) 2024 Hepatitis B Vaccine Aged Out No longe r eligible based on patient's age to complete this topic Insurance Care Teams Equipment Detailer Relationship Specialty Start Date End Date Arturo Martinez MD [address] [place] [address] [id number] [place], [place] PCP - General Internal Medicine 05/08/19
== END 2024-07-31 10:12 | disposition home or self-care (01) ==
LOC: HO.LNP 10:11
PROVIDERS: Visit Provider Internal Medicine
DX: R79.89 Other specified abnormal findings of blood chemistry (principal)
CPT/HCPCS: 80076

== ENCOUNTER 2024-08-13 15:08 | Outpatient (REF) | payer OTHER, SELFPAY ==
[2024-08-13 16:38] LABS: Alanine Aminotransferase 44 U/L (0-40); Albumin Level 4.5 g/dL (3.5-5.0); Alkaline Phosphatase 74 U/L (39-117); Anion Gap 13 (12-20); Aspartate Amino Transferase 32 U/L (5-37); Bilirubin Total 1.3 mg/dL (0.0-1.0); Blood Urea Nitrogen 16 mg/dL (9-16); Calcium 9.1 mg/dL (8.4-10.2); Carbon Dioxide 27 mmol/L (22-29); Chloride 103 mmol/L (96-108); Estimated Glomerular Filt Rate > 60; Glucose Random 77 mg/dL (60-115); Potassium 4.9 mmol/L (3.3-5.1); Sodium 138 mmol/L (135-145); Uric Acid 4.7 mg/dL (3.4-7.0)
--- OUTSIDE RECORDS SUMMARY | 2024-08-13 18:23 | XMS_ITS | Clinical Summary ---
Author Organization [facility], Address [address] [place] [address] Phone Care Team Providers Care Reed Cleaner Name Role Phone Arturo Martinez MD Primary Care Provider [phone] Allergies Active Allergy Reactions Criticality Noted Date [...] Visit [facility], [address] [place] [address] Alex Gamino MD [address] [place] [address] Health Maintenance Due Date Last Done Comments Pneumococcal Vaccine: 50+ Ye ars (1 of 2 - PCV) 12/24/1978 Colorectal Cancer Screening: Annual FOBT 12/24/2008 Colorectal Cancer Screening: Colonoscopy 12/24/2008 Colorectal Cancer Screening: Sigmoidoscopy 12/24/2008 Influenza Vaccine (Season Ended) 2024 Hepatitis B Vaccine Aged Out No longe r eligible based on patient's age to complete this topic Insurance Care Teams Reed Cleaner Relationship Specialty Start Date End Date Arturo Martinez MD [address] [place] [address] [address] [place], [place] PCP - General Internal Medicine 05/08/19
== END 2024-08-13 15:09 | disposition home or self-care (01) ==
LOC: HO.LAB 15:08
PROVIDERS: PCP Internal Medicine; Visit Provider Student in an Organized Health Care Education/Training Program
DX: M1A.09X1 Idiopathic chronic gout, multiple sites, with tophus (tophi) (principal)
CPT/HCPCS: 36415; 80053; 84550

== ENCOUNTER 2024-08-25 08:29 | Outpatient (AMB) | payer OTHER, SELFPAY ==
--- NOTE | 2024-08-25 08:30 | A.OFFVIS_ITS ---
Vital Signs 08/25/24 08:35 Height 5 ft 10 in Weight 173 lb 15.115 oz BMI 25.0 BP 134/92 H Blood Pressure Location Lt brachial Position Sitting Pulse 65 Pulse Source Pulse Oximeter Pulse Oximetry (%) 95 Oxygen Delivery Method Room Air Intake Visit Reasons: Gout Intake Note: Patient presents for Gout follow up. Allergies No Known Allergies Allergy (Verified 08/25/24 08:34) HPI Comments Details: Patient is a 63-year-old male with hypertension, prostate cancer status post prostatectomy and crystal proven gout here today for follow up Interval History: Patient last seen 02/04/[address] Siddiqui. - UA at goal 4.5 - No flares - D/c colchicine after holiday season Today, - stopped colchicine in 02/2024 - had a flare involving the right 1st MTP. June 2024 - after vacation and dental implant - had some colchicine at home, which he took for 5 days - had a second flare 4 weeks ago involving the left lateral foot - took ibuprofen with relief Rheumatologic History: Crystal proven gout dx affecting ankles, knees and feet. 1 time had ruptured Merrill cyst drained by Orthopedics and was told it contained uric acid crystals. Records not available for mt Allopurinol 300 mg started 10/2021. Colchicine started 03/2022 - 05/10 restarted 0.6 mg qod 12/10 due to flares, advanced to qd 05/2023 Initial history: This is a 61-year-old male with a past medical history of hypertension, prostate cancer s/p prostatectomy and gout who presents for gout evaluation. Patient states he started having gout attacks since the mid usually affecting his ankles, feet, occasionally in his knees. He stated that 1 time he had a gout flare affecting his knee complicated by a Merrill cyst which was drained by an orthopedic surgeon and he was told it showed gout crystals. Denied ever getting attacks in his upper extremities. He had 1 kidney stone that passed. He is unaware of the kidney stone composition. Attacks were usually precipitated by alcohol consumption especially beer. He has cut down significantly on alcohol consumption. Currently only drinks 1-2 drinks a week. Patient would usually treat does attacks with colchicine for 4-5 days. Over the last year he started having much more frequent attacks. He was started on allopurinol 300 mg daily by his PCP. Since then patient had at least 6-8 gout flares. He mentions that the gout attacks severity it is going down. His most recent flare started 4-5 days ago affecting his left ankle and foot. He took ibuprofen twice. 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 Review of Systems Const Details: Review of Systems Constitutional: Denies fever, chills, weight loss ENT: Denies vision changes, eye pain or eye redness, dental caries, dry mouth GI: Denies nausea, vomiting, diarrhea, abdominal pain, change in BM Pulm: Denies SOB, DELEON, hemoptysis, wheezing Cards: Denies chest pain, palpitations Skin: Denies Raynaud's, rash, nail changes, photosensitivity, MUFFLER TENDER: Denies headaches, weakness, paresthesias, recurrent falls MSK: as per HPI All other systems reviewed and are unremarkable except noted above Physical Exam Vital Signs: Last Vital Signs Pulse 65 08/25/24 08:35 BP 134/92 H 08/25/24 08:35 Pulse Ox 95 08/25/24 08:35 Oxygen Delivery Method Room Air 08/25/24 08:35 BMI result Body Mass Index 25.0 Vital signs reviewed Physical Examination CONSTITUITIONAL Patient alert and cooperative. Well appearing and in no apparent painful distress HEENT Conjunctiva and sclera clear. No lymphadenopathy. CHEST/RESPIRATORY SYSTEM Normal respiratory effort and able to speak in complete sentences. Clear to auscultation bilaterally. No crackles, rales, rhonchi, wheezes heard. CARDIAC SYSTEM Regular rate and rhythm. S1 and S2 heard no murmurs. Radial pulses intact bilaterally MSK Hands * Right Hand: Able to make a fist. No swelling or tenderness to palpation of these joints. No deformities noted. * Left Hand: Able to make a fist. No swelling or tenderness to palpation of these joints. No deformities noted. Wrists * Right Wrist: Full ROM. 70 degrees of wrist flexion, 80 degrees of wrist extension. No swelling or TTP * Left Wrist: Full ROM. 70 degrees of wrist flexion, 80 degrees of wrist extension. No swelling or TTP Elbows * Right Elbow: Full ROM. No swelling or TTP. TTP of the medial epicondyle * Left Elbow: Full ROM. No swelling or TTP. No TTP of the medial and lateral epicondyles Shoulders * Right shoulder: Full ROM. No swelling noted. No TTP of the AC joint, subacromial bursa or posterior shoulder * Left shoulder: Full ROM. No swelling noted. No TTP of the AC joint, subacromial bursa or posterior shoulder Hips * Right hip: Good ROM. No pain elicited with hip flexion/internal rotation/external rotation * Left hip: Good ROM. No pain elicited with hip flexion/internal rotation/external rotation Hip bursa: No tenderness to palpation bilaterally Knees * Right knee: Full ROM. No swelling noted. No TTP of the knee joint lie or pes anserine bursa * Left knee: Full ROM. No swelling noted. No TTP of the knee joint lie or pes anserine bursa. * crepitations felt bilaterally Ankles * Right ankle: Good ankle dorsiflexion and plantar flexion. No swelling. No TTP of the ankle joint * Left ankle: Good ankle dorsiflexion and plantar flexion. No swelling. No TTP of the ankle joint Feet * Right foot: Negative squeeze test * Left foot: Negative squeeze test Tender points? * No tenderness to palpation of the bilateral trapezius, supraspinatus, anterior costochondral junctions, bilateral suboccipital muscle insertions SKIN Dry scaling over elbows No tophi Results Reviewed Results Reviewed: Laboratory Tests 01/31/24 06/26/24 07/31/24 08:25 07:30 07:00 WBC 5.9 RBC 4.75 Hgb 14.6 Hct 42.5 Plt Count 218 Sodium Potassium Chloride Carbon Dioxide BUN Creatinine Uric Acid 4.5 AST 29 38 H 32 ALT 40 55 H 48 H 08/13/24 15:17 WBC RBC Hgb Hct Plt Count Sodium 138 Potassium 4.9 Chloride 103 Carbon Dioxide 27 BUN 16 Creatinine 1.11 Uric Acid 4.7 AST 32 ALT 44 H Assessment & Plan Assessment & Plan (1) Gout: Comment: dx 1990s affecting ankles, knees and feet. 1 time had ruptured Merrill cyst drained by Orthopedics and was told it contained uric acid crystals. Records not available for me Allopurinol 300 mg started 10/2021. Colchicine started 03/2022 - 05/10 restarted 0.6 mg qod 12/10 due to flares, advanced to qd 05/2023 Code(s): M10.9 - Gout, unspecified Category: Medical Qualifiers: Chronicity: chronic Gout etiology: idiopathic Gout site: multiple sites Presence of tophus: with tophus Qualified Code(s): M1A.09X1 - Idiopathic chronic gout, multiple sites, with tophus (tophi) Plan: #Crystal proven gout Patient is a 63-year-old male with crystal proven gout here today for follow up. His uric acid is at goal however despite that he continues to have 2 episodes of gout after he discontinued the colchicine. I discussed with the patient 3 options: Restarting colchicine, starting low-dose prednisone, or continuing his current medication with stricter dietary requirements. Patient opted to continue his current medications with dietary restrictions. He did note that prior to each of the flares he had some dietary indiscretions involving either seafood or alcohol. We discussed specific dietary changes. We will give him a Medrol Dosepak for him to have in case of flare. Patient is to call the office if he does have a flare. Plan - Allopurinol 300mg daily - Medrol dose pack prn - Continue to hold colchicine - RTC 6 months - Labs before visit: CMP, uric acid (2) Transaminitis: Code(s): R74.01 - Elevation of levels of liver transaminase levels Plan: #Transaminitis Patient with transaminitis. Currently being worked up by GI. Given his transaminitis I think it it would be preferred to continue holding his colchicine. (3) Encounter for monitoring allopurinol therapy: Code(s): Z51.81 - Encounter for therapeutic drug level monitoring; Z79.899 - Other director long term care (current) drug therapy Plan: #Long-term Current Use of Allopurinol Risks and benefits of allopurinol discussed with patient Benefits include decreased gout flares, remission of gout and reduction of tophi Risks include allopurinol hypersensitivity syndrome which is a severe cutaneous adverse reaction associated with allopurinol use particularly in patients who are HLA B*5801 positive, increased transaminases, GI upset including diarrhea, nausea and vomiting, and other dermatologic manifestations. Plan I spent 30 minutes reviewing the record and labs, taking a history, examining the patient, discussing the treatment plan, ordering diagnostic work up and documenting in the medical record Coding Level of Care Code Est Pt Level 4 (75100) Complex EM visit Add On G2211 Diagnoses Idiopathic chronic gout of multiple sites with tophus M1A.09X1 Chronicity: chronic Gout etiology: idiopathic Gout site: multiple sites Presence of tophus: with tophus Transaminitis R74.01 Encounter for monitoring allopurinol therapy Z51.81; Z79.899
[2024-08-25 08:35] VITALS: BP 134/92; PULSE 65; O2SAT 95; BMI 25.0
== END 2024-08-25 09:05 | disposition home or self-care (01) ==
PROVIDERS: PCP Internal Medicine; Visit Provider Student in an Organized Health Care Education/Training Program
DX: M1A.09X1 Idiopathic chronic gout, multiple sites, with tophus (tophi) (principal); R74.01 Elevation of levels of liver transaminase levels; Z51.81 Encounter for therapeutic drug level monitoring; Z79.899 Other long term (current) drug therapy
CPT/HCPCS: 99214

== ENCOUNTER 2024-09-08 11:27 | Outpatient (AMB) | payer OTHER, SELFPAY ==
--- NOTE | 2024-09-08 11:44 | A.OFFVIS_ITS ---
Vital Signs 09/08/24 11:45 Height 5 ft 10 in Weight 173 lb BMI 24.8 Intake Visit Reasons: New prob Bilat hand Trigger fing/RT hand ganglion Intake Note: Alexsander 63 yr old rigt hand dominant male presents today for a new problem visit for bilateral hands. States he is having locking and catching in his right ring, left middle finger and has a ganglion cyst on his right hand at base of his thumb. States his left is worse. Denies numbness, tingling or recent injury. Hx of right middle finger trigger release. Allergies No Known Allergies Allergy (Verified 09/08/24 11:47) HPI HPI New prob Bilat hand Trigger fing/RT hand ganglion: Details: Alexasnder is a 63 year old right hand dominant man who returns with multiple complaints. He complains of painful locking & catching of his right ring & left middle fingers. He says he has a Hx of a right middle finger trigger release at an outside clinic, and these symptoms are similar to his previous trigger finger prior to surgery. He also complains of a mass at the base of his right thumb. He he believes it was a cyst, but it appears to have ruptured and resolved itself. 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 Review of Systems Const All systems reviewed & are unremarkable except as noted in HPI and below Physical Exam Vital Signs: BMI result Body Mass Index 24.8 Const General: no acute distress and alert Orientation/consciousness: patient oriented x3 Neuro General: patient oriented x3 Extrem Other: Evaluation of Bilateral Upper Extremity: The patient is alert, oriented, and in no acute distress Neuro: Median, Ulnar, Radial nerves motor and sensory intact and sensation is normal to the tips of all digits Vascular: Cap refill brisk ROM: He can make a fist and extend all his digits Visible & palpable locking & catching of the right ring & left middle fingers Tender over the a1 susanne of the right ring & left middle fingers + shoulder sign on the right Basal joint not particularly tender to palpation today Psych Appearance: grossly normal Affect: normal affect Attitude: cooperative Assessment & Plan Assessment & Plan (1) Trigger finger, left middle finger: Code(s): M65.332 - Trigger finger, left middle finger Category: Medical (2) Trigger ring finger of right hand: Code(s): M65.341 - Trigger finger, right ring finger Category: Medical (3) Arthritis of carpometacarpal (CMC) joint of right thumb: Code(s): M18.11 - Unilateral primary osteoarthritis of first carpometacarpal joint, right hand Category: Medical Plan Assessment & plan: 1. Left middle finger trigger finger This is his chief complaint today I educated him about this condition I discussed operative and non-operative treatment options The patient would like to proceed with surgery, beginning with the left side The risks and benefits of operative treatment were discussed with the patient and the patient wishes to proceed with surgery. These risks include, but are not limited to risk of damage to blood vessels, nerves, tendons, infection, recurrence, incomplete relief of preoperative symptoms, persistent pain, possible need for further surgery and the risks associated with regional blocks and anesthesia. The plan is to take the patient to the operating room sometime in the next few weeks for the following procedures: 1. Left middle finger trigger release, under local All of the preoperative paperwork including the consent was reviewed today. All the patient's questions were answered. The patient understands that they will be contacted by our program scheduler soon to schedule this procedure He denies Diabetes, blood thinners, asthma, heart, lung, kidney issues 2. Right ring finger trigger finger 3. Right basal joint arthritis 4. Right hand ganglion cyst Patient reports this was present at the base of the thumb, but ruptured and has shrunk at home 5. Left middle finger laceration, in the middle of the pad with no nail involvement DOI: 01/15/22 Healed, no complaints Scribed for Irlanda Martinez MD by Andrea Monterroso biomedical field service engineer, on 09/08/24 at 11:55 AM, EST. Coding Level of Care Code Est Pt Level 4 (65881) Diagnoses Trigger finger, left middle finger M65.332 Trigger ring finger of right hand M65.341 Arthritis of carpometacarpal (CMC) joint of right thumb M18.11
[2024-09-08 11:45] VITALS: BMI 24.8
--- OUTSIDE RECORDS SUMMARY | 2024-09-08 12:45 | XMS_ITS | Clinical Summary ---
Author Organization [facility], Address [address] [place] [address] Phone Care Team Providers Care Regulatory Affairs Internship Name Role Phone Arturo Martinez MD Primary Care Provider [phone] Allergies Active Allergy Reactions Criticality Noted Date [...] Visit [facility], [address] [place] [address] Alex Gamino MD [address] [place] [address] Health Maintenance Due Date Last Done Comments Pneumococcal Vaccine: 50+ Ye ars (1 of 2 - PCV) 12/24/1978 Colorectal Cancer Screening: Annual FOBT 12/24/2008 Colorectal Cancer Screening: Colonoscopy 12/24/2008 Colorectal Cancer Screening: Sigmoidoscopy 12/24/2008 Influenza Vaccine (#1) 2024 Hepatitis B Vaccine Aged Out No longe r eligible based on patient's age to complete this topic Insurance Care Teams Regulatory Affairs Internship Relationship Specialty Start Date End Date Arturo Martinez MD [address] [place] [address] [id number] [place], [place] PCP - General Internal Medicine 05/08/19
--- OUTSIDE RECORDS SUMMARY | 2024-09-08 12:46 | XMS_ITS | Patient Health Record ---
Author Organization Arturo Martinez MD Address [address] [place] [phone] Care Team Providers Care Chemical Operations And Training Name Role Phone Arturo Martinez Primary Care Provider Allergies Allergen (clinical drug ingredient) Drug/Non Drug Allergy documented on EMR Reaction Allergy Type Onset Date Status irbesartan Irbesartan pancreatiies Drug Allergy Active hydrochlorothiazide Hydrochlorothiazide cramps a nd elevted bun and cr Drug Allergy Active Results Component Value Reference Range Notes Complete Blood Count Auto Di ff Reviewed date:06/26/2024 12:33:18 PM Interpretation: Performing Lab:[facility], [address] [place] [phone] Notes/Report: White Blood Count 5.9 4.8-10.8 X10*3/uL [...] NRBC Abs Auto 0.000 0.0-0.012 X10*3/uL Comprehensive [place]. Panel Fa st Reviewed date:06/26/2024 12:20:00 PM Interpretation: Performing Lab:[facility], [address] [place] [phone] Notes/Report: Sodium 138 135-145 mmol/L Potassium 4.7 [...] Panel Reviewed date:06/26/2024 12:20:33 PM Interpretation: Performing Lab:[address] [address] Notes/Report: Triglycerides 44 <150 mg/dL Desirable Triglyceride: [...] (Free>4and<10) Reviewed date:06/26/2024 12:11:39 PM Interpretation: Performing Lab:[address] [phone] Notes/Report: PSA,Total (Free>4and<10) < 0.10 0.00-4.00 ng/mL [...] t Reviewed date:06/26/2024 01:00:46 PM Interpretation: Performing Lab:[facility], [address] [place] [phone] Notes/Report: Urine, Clean Catch Color Urine Yellow Appearance Urine Clear PH 5.5 5.0-9.0 Glucose Urine UA Negative Negative mg/dL Urine Blood Negative Negative Specific [place] - Urine 1.020 1.005-1.025 Urine Protein Negative Neg-Trace mg/dL Urine Ketones Negative Negative mg/dL Nitrite Urine Negative Negative Leukocyte Esterase Urine Negative Negative RBC Urine 0-2 0-2 /HPF WBC Urine 0-5 0-5 /HPF Squamous Epithelial Cell Urine 0-2 0-2 /HPF Bacteria Urine None Seen None Seen Hyaline Casts Urine 0-2 0-2 /LPF Liver Panel Reviewed date:07/31/2024 12:44:23 PM Interpretation: Performing Lab:[facility], [address] [place] [phone] Notes/Report: Bilirubin Total 1.2 0.0-1.0 mg/dL Bilirubin Direct 0.4 0.0-0.5 mg/dL Aspartate Amino Transferase 32 5-37 U/L Alanine Aminotransferase 48 0-40 U/L Total Protein 7.0 6.5-8.0 g/dL Albumin Level 4.5 3.5-5.0 g/dL Alkaline Phosphatase 73 39-117 U/L Comprehensive Met. Panel Reviewed date:08/14/2024 01:00:07 PM Interpretation: Performing Lab:[address] [address] Notes/Report: Sodium 138 135-145 mmol/L Potassium 4.9 3.3-5.1 mmol/L Chloride 103 96-108 mmol/L Carbon Dioxide 27 22-29 mmol/L Anion Gap 13 12-20 Blood Urea Nitrogen 16 9-16 mg/dL Creatinine 1.11 0.5-1.4 mg/dL Estimated Glomerular Filt Rate > 60 Chronic Kidney Disease: Estimated GFR < 60 mL/min/1.73m2 Severe Kidney Disease: Estimated GFR < 15 mL/min/1.73m2 Glucose Random 77 60-115 mg/dL Calcium 9.1 8.4-10.2 mg/dL Bilirubin Total 1.3 0.0-1.0 mg/dL Aspartate Amino Transferase 32 5-37 U/L Alanine Aminotransferase 44 0-40 U/L Total Protein 7.0 6.5-8.0 g/dL Albumin Level 4.5 3.5-5.0 g/dL Alkaline Phosphatase 74 39-117 U/L Uric Acid Reviewed date:08/14/2024 12:41:12 PM Interpretation: Performing Lab:[facility], [address] [place] [phone] Notes/Report: Uric Acid 4.7 3.4-7.0 mg/dL Reason For Referral Reason Nodule of finger Diagnosis 1 Nodule of finger (78 2.2) Referral Organization Arturo Martinez MD Referring Provider First Name Arturo Referring Provider Last Name Juan Referring Provider Speciality Internal edicine Referred Provider Tanya Denise Referred Provider Specialty Orthopedic S urgery General Notes Arleen Clancy 0 07/03/2024 09:24:55 AM >info faAston irwin Annette 07/06/2024 01:19:50 PM > not able to use this referral due to (The following servicing providers are not contracted with the selected patient's product and are not valid for this request Tanya Denise ) Referral Priority Routine Reason nodule hand Diagnosis 1 Localized swelling, mass and lump, unspecified upper limb (R22.30) Referral Organization Arturo Martinez MD Referring Provider First Name Arturo Referring Provider Last Name Juan Referring Provider Speciality Internal edicine Referred Provider Irlanda Martinez Referred Provider Specialty Hand Surgery General Notes Arleen Clancy 0 07/06/2024 01:42:08 PM > [place] referral [id number] visits 07-06-24 to 09-18-24Aston Annette 07/06/2024 01:43:20 PM > referral info faAston irwin Annette 07/20/2024 02:00:51 PM > was told patient is aware of appt Referral Priority Routine Referral Appointment Date 09/02/2024 Medications Medication SIG (Take, Route, Frequency, Duration) Notes Start Date End Date Status Colchicine 0.6 MG 1 tablet Orally QOD 09/22/2021 Not-Taking Ibuprofen 200 MG 1 tablet with food o r milk as needed Orally Three times a day Not-Taking Vitamin C 500 MG as directed Orally Active Ocuflox 0.3 % 1 drop into affected eye Ophthalmic Four times a day for 10 days 01/29/2020 Not-Taking Ocuflox 0.3 % 1 drop into affected eye Ophthalmic Four times a day for 10 days 02/14/2021 Not-Taking Colchicine 0.6 MG 1 tablet Orally [...] DAYNE TH EVERY DAY for 90 Active Carvedilol Phosphate ER 40 MG TAKE 1 CAPSULE BY MOUTH WITH FOOD ONCE DAILY for 90 Active Metamucil Free & Natural 43 % as directed Orally Active Hyoscyamine Sulfate ER 0.375 MG TAKE 1 TABLET BY MOUTH EVERY 12 HOURS FOR 90 DAYS for 90 Active TobraDex 0.3-0.1 % APPLY TO BOTH EYES D AILY AT BEDTIME Ophthalmic for 7 Not-Taking Immunizations Vaccine Route Administration Date Status [...] Problem Status W/U Status Risk Notes Problem 917201281 Irritable bowel syndrome with diarrhea (K58.0) Active confirmed Problem Gout (02466129) Gout (M10.9) Active confirmed Problem 77054164 Gilbert syndrome (E80.4) Active confirmed Problem 19624856 Essential hypertension (I10) Active confirmed Problem 786489633 Prostate cancer (C61) Active confirmed Problem 75674152 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 Problem 889697463 Multiple falls (R29.6) Active confirmed Problem 63953660 Acute idiopathic gout of right foot (M10.071) Active confirmed Problem 54743925 LEÓN (obstructive sleep apnea) (G47.33) Active confirmed Problem 376637285 Idiopathic acute pancreatitis without infection or necrosis (K85.00) Active confirmed Problem Abdominal aortic atherosclerosis (I70.0) Active confirmed Problem 972318793 Acute gout of le ft ankle, unspecified cause (M10.9) Active confirmed Vital Signs Blood pressure diastolic 70 mm Hg 07/03/2024 Height 71.5 in 07/03/2024 Blood pressure systolic 128 mm Hg 07/03/2024 Weight 173 lbs 07/03/2024 BMI 23.79 kg/m2 07/03/2024 Encounters Encounter Location Date Provider Diagnosis Arturo Martinez MD [address] [place] [id number] 01/02/2024 Arturo Martinez Essential hypertensi on I10 and Gout M10.9 Arturo Martinez MD [address] [place] [id number] 06/26/2024 rAturo Martinez Blood tests for rout ine general physical examination Z00.00 ; Essential hypertension I10 and Abdominal aortic atherosclerosis I70.0 Arturo Martinez MD [address] [place] [id number] 07/31/2024 Arturo Martinez Elevated liver funct ion tests R79.89 Arturo Martinez MD [address] [place] [id number] 07/03/2024 Arturo Martinez Annual physical exam Z00.00 ; Elevated LFTs R79.89 ; Skin lesion L98.9 ; Nodule of finger 782.2 ; Essential hypertension I10 ; Irritable bowel syndrome with diarrhea K58.0 ; Colon cancer screening Z12.11 and Depression screening Z13.31 Arturo Martinez MD [address] [place] [id number] 07/14/2024 Arturo Martinez MD [address] [place] [address] [id number] 07/31/2024 Arturo Martinez MD [address] [id number] 08/05/2024 Arturo Martinez Assessments Encounter Date Diagnosis (ICD Code) Assessment Notes Treatment Notes Treatment Clinical Notes Section Notes 01/02/2024 Essential hypertension (ICD-10 - I10) has pages of incredible readings will continue on the same 01/02/2024 Gout (ICD-10 - M10.9) is doing well with colchicine every other day is going to see ccna in few weeks 06/26/2024 Blood tests for routine general physical examination (ICD-10 - Z00.00) 07/31/2024 Elevated liver function tests (ICD-10 - R79.89) 07/03/2024 Annual physical exam (ICD-10 - Z00.00) reviewed labs and discused with patient 07/03/2024 Elevated LFTs (ICD-10 - R79.89) will cntinue to monitor 06/26/2024 Essential hypertension (ICD-10 - I10) 07/03/2024 Skin lesion (ICD-10 - L98.9) 06/26/2024 Abdominal aortic atherosclerosis (ICD-10 - I70.0) 07/03/2024 Nodule of finger (ICD9-CM - 782.2) [...] DOPPLER 05/25/2019 Next Appt Details Provider Name:Arturo Knutson ier, 11/06/2024 08:45:00 AM, [address] [place] [address], [phone], Provider Name:Arturo Knutson ier, 07/01/2025 07:00:00 AM, [address] [place] [address], [phone], Provider Name:Arturo Knutson ier, 07/08/2025 08:30:00 AM, [address] [place] [address], [phone], Insurance Providers Payer Name Payer Address Payer Phone Subscriber Number Group Number Insured Name Patient Relationship to Insured Coverage Start Date Coverage End Date [facility] [address] [place] [id number] Alexsander Ruiz Self - patient is the insured Medical (General) History Medical History History ICD Code Hx Diverticulosis of colon COLONOSCOPY 09/25/2010 due in ten years w/ Dr. Michel
--- OUTSIDE RECORDS SUMMARY | 2024-09-08 12:46 | XMS_ITS | Patient Health Record ---
Author Organization [facility] Address [address] [place] [address] Care Team Providers Care General Duty Nurse Name Role Phone Arturo Martinez MD Primary Care Provider Jayme Chavez Jr Unavailable [phone] Allergies No Known Allergies Reason For Referral Referring Provider First Name Arturo Referring Provider Last Name Juan Referring Provider Speciality Internal M edicine Referred Organization [facility] Referred Provider Jayme August Jr Referred Address [address] [facility] [facility] [address],[place], [place],[address], Referred Provider Specialty Gastroentero logy General Notes Theo Terrazasn 2024 01:59:20 PM >requested a carey pilgrim referral from Dr. Martinez's office for visit with Dr. August on 08-13-24 ext [phone] Referral Priority Routine Medications Medication SIG (Take, Route, Frequency, Duration) Notes Start Date End Date Status Allopurinol Active Carvedilol Active Hyoscyamine Active Lisinopril Active Vitamin C Active Metamucil Active Colchicine prn Active Social History Tobacco Use: Social History [...] Problem Status W/U Status Risk Notes Problem 539456465 Colon cancer screening (Z12.11) Active confirmed Problem 655868808 Irritable bowel syndrome with diarrhea (K58.0) Active confirmed Problem Increased liver function (95306651) LFT elevation (R94.5) Active confirmed Vital Signs Blood pressure diastolic 77 mm Hg 08/13/2024 Height 69 in 08/13/2024 Blood pressure systolic 111 mm Hg 08/13/2024 Weight 173 lbs 08/13/2024 BMI 25.54 kg/m2 08/13/2024 Encounters Encounter Location Date Provider Diagnosis [facility] [address] [place] [address] 08/13/2024 Jayme August Jr Irritable bowel syndrome with diarrhea K58.0 ; Colon cancer screening Z12.11 and LFT elevation R94.5 [facility] [address] [place] [address] 08/14/2024 Jayme August Jr Assessments Encounter Date Diagnosis (ICD Code) Assessment Notes Treatment Notes Treatment Clinical Notes Section Notes 08/13/2024 Colon cancer screening (ICD-10 - Z12.11) At this time, he is doing well. He will continue hyoscyamine for his irritable bowel syndrome. He can use antidiarrheals if needed. He is up-to-date on colorectal cancer screening. We reviewed this today. For his liver function test elevations we have recommended further evaluation with laboratory studies and ultrasound imaging. This will be arranged. Follow-up will be in 1 year. 08/13/2024 Irritable bowel syndrome with diarrhea (ICD-10 - K58.0) At this time, he is doing well. He will continue hyoscyamine for his irritable bowel syndrome. He can use antidiarrheals if needed. He is up-to-date on colorectal cancer screening. We reviewed this today. For his liver function test elevations we have recommended further evaluation with laboratory studies and ultrasound imaging. This will be arranged. Follow-up will be in 1 year. 08/13/2024 LFT elevation (ICD-10 - R94.5) At this time, he is doing well. He will continue hyoscyamine for his irritable bowel syndrome. He can use antidiarrheals if needed. He is up-to-date on colorectal cancer screening. We reviewed this today. For his liver function test elevations we have recommended further evaluation with laboratory studies and ultrasound imaging. This will be arranged. Follow-up will be in 1 year. Plan Of Treatment Pending Test Test Name Order Date LIVER PROFILE 08/13/2024 IRON + IBC (FE) 08/13/2024 FERRITIN 08/13/2024 HEPATITIS A,B,C PROFILE 08/13/2024 MITOCHONDRIAL AB 08/13/2024 SMOOTH MUSCLE ANTIBODIES 08/13/2024 US ABD 08/13/2024 Liver Fibrosis Pnl 08/13/2024 ROBERTO Reflex Titer and Pattern 08/13/2024 Next Appt Details Provider Name:Jayme martin , 11/24/2024 08:20:00 AM, [address] [place] [address] , [place], [place], [phone], Insurance Providers Payer Name Payer Address Payer Phone Subscriber Number Group Number Insured Name Patient Relationship to Insured Coverage Start Date Coverage End Date [employer] [id number] [place] [id number] ETHAN OLSON Self - patient is the insured Medical (General) History Medical History History ICD Code hypertension prostate cancer Gout pancreatitis 04/2019, ? secondary to irb esartan past hx of kidney stone gilberts syndrome basil cell carcinoma diverticulosis Colonoscopy 01/09, tubular adenoma, 5-ye ar follow-up Surgical History Surgery Date(Month/Year) Left inguinal herniorrhaphy Prostatectomy
== END 2024-09-08 12:55 | disposition home or self-care (01) ==
LOC: HO.HOS 11:27
PROVIDERS: PCP Internal Medicine; Visit Provider Orthopaedic Surgery
DX: M65.332 Trigger finger, left middle finger (principal); M65.341 Trigger finger, right ring finger; M18.11 Unilateral primary osteoarthritis of first carpometacarpal joint, right hand
CPT/HCPCS: 99214

== ENCOUNTER 2024-09-30 07:59 | Outpatient (REF) | payer OTHER, SELFPAY ==
--- NOTE | ~2024-09-30 | US_ITS ---
EXAMINATION: US ABDOMEN HISTORY: LFT ELEVATION TECHNIQUE: Real-time grayscale ultrasound imaging of the abdomen was performed and images were reviewed. COMPARISON: There are no prior studies available for comparison. FINDINGS: Liver: The right lobe of the liver measures 13.7 cm in size. The left lobe of the liver measures 9.0 cm in size. The liver demonstrates increased echotexture, consistent with steatosis. No focal mass or intrahepatic biliary ductal dilatation is identified. There is normal hepatopedal flow in the portal vein. Gallbladder and biliary tree: The gallbladder is unremarkable, without evidence of calculi, wall thickening, or pericholecystic fluid. There is no sonographic Roy sign. The common bile duct is normal in caliber measuring 3 mm. Kidneys: The right kidney measures 11.4 cm in length. The left kidney measures 10.4 cm in length. The kidneys are unremarkable, without evidence of masses, hydronephrosis, or calculi. Pancreas: The pancreatic head, neck, and body are unremarkable. The pancreatic tail is obscured by bowel gas. Spleen: The spleen is normal in size and contour, measuring 11.3 cm in length. Abdominal aorta and inferior vena cava: The visualized portions of the abdominal aorta and inferior vena cava are normal in caliber. There is no free fluid in the abdomen. US/US abdomen complete IMPRESSION: Hepatic steatosis. Otherwise unremarkable abdominal ultrasound. Electronically signed by: Juan Francisco Conte MD 09/30/2024 08:40 AM EDT
--- OUTSIDE RECORDS SUMMARY | 2024-09-30 08:02 | XMS_ITS | Patient Health Record ---
Author Organization [facility] Address [address] [place] [address] Care Team Providers Care Carton Filling Machine Operator Name Role Phone Arturo Martinez MD Primary Care Provider Jayme Chavez Jr Unavailable Allergies No Known Allergies Reason For Referral Referring Provider First Name Arturo Referring Provider Last Name Juan Referring Provider Speciality Internal M edicine Referred Organization [facility] Referred Provider Jayme August Jr Referred Address [address] [facility],[place], [place],[address], Referred Provider Specialty Gastroentero logy General Notes Theo Terrazasn 2024 01:59:20 PM >requested a [place] pilgrim referral from Dr. Martinez's office for visit with Dr. August on 08-13-24 ext [phone] Referral Priority Routine Medications Medication SIG (Take, [...] Problem Status W/U Status Risk Notes Problem 485561363 Colon cancer screening (Z12.11) Active confirmed Problem 210202710 Irritable bowel syndrome with diarrhea (K58.0) Active confirmed Problem Increased liver function (57348866) LFT elevation (R94.5) Active confirmed Vital Signs Blood pressure diastolic 77 mm Hg 08/13/2024 Height 69 in 08/13/2024 Blood pressure systolic 111 mm Hg 08/13/2024 Weight 173 lbs 08/13/2024 BMI 25.54 kg/m2 08/13/2024 Encounters Encounter Location Date Provider Diagnosis [facility] [address] [place] [address] 08/13/2024 Jayme August Jr Irritable bowel syndrome with diarrhea K58.0 ; Colon cancer screening Z12.11 and LFT elevation R94.5 [facility] [address] [place] [address] 08/14/2024 Jayme August Jr Assessments Encounter Date [...] Provider Name:Jayme martin , 11/24/2024 08:20:00 AM, [address] [place] [address] , [place], [place], [phone], Insurance Providers Payer Name Payer Address Payer Phone Subscriber Number Group Number Insured Name Patient Relationship to Insured Coverage Start Date Coverage End Date [employer] [address] [place] [phone] [id number] ETHAN OLSON Self - patient is the insured Medical (General) History Medical History History ICD Code hypertension prostate cancer Gout pancreatitis 04/2019, ? secondary to irb esartan past hx of kidney stone gilberts syndrome basil cell carcinoma diverticulosis Colonoscopy 01/09, tubular adenoma, 5-ye ar follow-up Surgical History Surgery Date(Month/Year) Left inguinal herniorrhaphy Prostatectomy
--- OUTSIDE RECORDS SUMMARY | 2024-09-30 08:02 | XMS_ITS | Clinical Summary ---
Author Organization [facility], Address [address] [place] [address] Phone Care Team Providers Care Sat Act Instructor Name Role Phone Arturo Martinez MD Primary Care Provider [phone] Allergies Active Allergy Reactions Criticality Noted Date [...] Visit [facility], [address] [place] [address] Alex Gamino MD [address] [place] [address] Health Maintenance Due Date Last Done Comments Pneumococcal Vaccine: 50+ Ye ars (1 of 2 - PCV) 12/24/1978 Colorectal Cancer Screening: Annual FOBT 12/24/2008 Colorectal Cancer Screening: Colonoscopy 12/24/2008 Colorectal Cancer Screening: Sigmoidoscopy 12/24/2008 Influenza Vaccine (#1) 2024 Hepatitis B Vaccine Aged Out No longe r eligible based on patient's age to complete this topic Insurance Care Teams Sat Act Instructor Relationship Specialty Start Date End Date Arturo Martinez MD [address] [place] [address] [address] [place], [place] PCP - General Internal Medicine 05/08/19
--- OUTSIDE RECORDS SUMMARY | 2024-09-30 08:02 | XMS_ITS | Patient Health Record ---
Author Organization Arturo Martinez MD Address [address] [place] [phone] Care Team Providers Care Transfer Pumper Name Role Phone Arturo Martinez Primary Care Provider [phone] Allergies Allergen (clinical drug ingredient) Drug/Non Drug Allergy documented on EMR Reaction Allergy Type Onset Date Status irbesartan Irbesartan pancreatiies Drug Allergy Active hydrochlorothiazide Hydrochlorothiazide cramps a nd elevted bun and cr Drug Allergy Active Results Component Value Reference Range Notes Complete Blood Count Auto Di ff Reviewed date:06/26/2024 12:33:18 PM Interpretation: Performing Lab:[facility], [address] [place] [phone] Notes/Report: White Blood Count 5.9 4.8-10.8 X10*3/uL [...] NRBC Abs Auto 0.000 0.0-0.012 X10*3/uL Comprehensive [place]. Panel Fa st Reviewed date:06/26/2024 12:20:00 PM Interpretation: Performing Lab:[facility], [address] [place] [phone] Notes/Report: Sodium 138 135-145 mmol/L Potassium 4.7 [...] Panel Reviewed date:06/26/2024 12:20:33 PM Interpretation: Performing Lab:[address] [phone] Notes/Report: Triglycerides 44 <150 mg/dL Desirable Triglyceride: [...] (Free>4and<10) Reviewed date:06/26/2024 12:11:39 PM Interpretation: Performing Lab:[address] [phone] Notes/Report: PSA,Total (Free>4and<10) < 0.10 0.00-4.00 ng/mL [...] t Reviewed date:06/26/2024 01:00:46 PM Interpretation: Performing Lab:[facility], [address] [place] [phone] Notes/Report: Urine, Clean Catch Color Urine Yellow Appearance Urine Clear PH 5.5 5.0-9.0 Glucose Urine UA Negative Negative mg/dL Urine Blood Negative Negative Specific [place] - Urine 1.020 1.005-1.025 Urine Protein Negative Neg-Trace mg/dL Urine Ketones Negative Negative mg/dL Nitrite Urine Negative Negative Leukocyte Esterase Urine Negative Negative RBC Urine 0-2 0-2 /HPF WBC Urine 0-5 0-5 /HPF Squamous Epithelial Cell Urine 0-2 0-2 /HPF Bacteria Urine None Seen None Seen Hyaline Casts Urine 0-2 0-2 /LPF Liver Panel Reviewed date:07/31/2024 12:44:23 PM Interpretation: Performing Lab:[facility], [address] [place] [phone] Notes/Report: Bilirubin Total 1.2 0.0-1.0 mg/dL Bilirubin Direct 0.4 0.0-0.5 mg/dL Aspartate Amino Transferase 32 5-37 U/L Alanine Aminotransferase 48 0-40 U/L Total Protein 7.0 6.5-8.0 g/dL Albumin Level 4.5 3.5-5.0 g/dL Alkaline Phosphatase 73 39-117 U/L Comprehensive Met. Panel Reviewed date:08/14/2024 01:00:07 PM Interpretation: Performing Lab:[address] [address] Notes/Report: Sodium 138 135-145 mmol/L Potassium 4.9 [...] Acid Reviewed date:08/14/2024 12:41:12 PM Interpretation: Performing Lab:[facility], [address] [place] [phone] Notes/Report: Uric Acid 4.7 3.4-7.0 mg/dL Reason [...] Arleen Clancy 0 07/06/2024 01:42:08 PM > [place] referral [id number] 12 visits 07-06-24 to 09-18-24[place] 07/06/2024 [...] Problem Status W/U Status Risk Notes Problem 814760811 Irritable bowel syndrome with diarrhea (K58.0) Active confirmed Problem Gout (16478667) Gout (M10.9) Active confirmed Problem 49056488 Gilbert syndrome (E80.4) Active confirmed Problem 59913702 Essential hypertension (I10) Active confirmed Problem 712108869 Prostate cancer (C61) Active confirmed Problem 26253324 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 Problem 645373167 Multiple falls (R29.6) Active confirmed Problem 36031772 Acute idiopathic gout of right foot (M10.071) Active confirmed Problem 06601733 LEÓN (obstructive sleep apnea) (G47.33) Active confirmed Problem 018648708 Idiopathic acute pancreatitis without infection or necrosis (K85.00) Active confirmed Problem Abdominal aortic atherosclerosis (104835590) Abdominal aortic atherosclerosis (I70.0) Active confirmed Problem 818845364 Acute gout of le ft ankle, unspecified cause (M10.9) Active confirmed Vital Signs Blood pressure diastolic 70 mm Hg 07/03/2024 Height 71.5 in 07/03/2024 Blood pressure systolic 128 mm Hg 07/03/2024 Weight 173 lbs 07/03/2024 BMI 23.79 kg/m2 07/03/2024 Encounters Encounter Location Date Provider Diagnosis Arturo Martinez MD [address] [place] [id number] 01/02/2024 Artruo Martinez Essential hypertensi on I10 and Gout M10.9 Arturo Martinez MD [address] [place] [id number] 06/26/2024 Arturo Martinez Blood tests for rout ine general physical examination Z00.00 ; Essential hypertension I10 and Abdominal aortic atherosclerosis I70.0 Arturo Martinez MD [address] [place] [id number] 07/31/2024 Arturo Martinez Elevated liver funct ion tests R79.89 Arturo Martinez MD [address] [id number] 07/03/2024 Arturo Martinez Annual physical exam Z00.00 ; Elevated LFTs R79.89 ; Skin lesion L98.9 ; Nodule of finger 782.2 ; Essential hypertension I10 ; Irritable bowel syndrome with diarrhea K58.0 ; Colon cancer screening Z12.11 and Depression screening Z13.31 Arturo Martinez MD [address] [place] [id number] 07/14/2024 Arturo Martinez MD [address] [id number] 07/31/2024 Arturo Martinez MD [address] [id number] 08/05/2024 Arturo Martinez Assessments Encounter Date Diagnosis (ICD Code) Assessment Notes Treatment Notes Treatment Clinical Notes Section Notes 01/02/2024 Essential hypertension (ICD-10 - I10) has pages of incredible readings will continue on the same 01/02/2024 Gout (ICD-10 - M10.9) is doing well with colchicine every other day is going to see farebox repairer in few weeks 06/26/2024 Blood tests for [...] Provider Name:Arturo Knutson ier, 11/06/2024 08:45:00 AM, [address] [place] [address], [address], [phone], Provider Name:Arturo Knutson ier, 07/01/2025 07:00:00 AM, [address] [place] [address], [address], [phone], Provider Name:Arturo Knutson ier, 07/08/2025 08:30:00 AM, [address] [place] [address], [address], [phone], Insurance Providers Payer Name Payer Address Payer Phone Subscriber Number Group Number Insured Name Patient Relationship to Insured Coverage Start Date Coverage End Date [facility] [address] J[place] [id number] Alexsander Ruiz Self - patient is the insured Medical (General) History Medical History History ICD Code Hx Diverticulosis of colon COLONOSCOPY 09/25/2010 due in ten years w/ Dr. Michel
[2024-09-30 09:39] LABS: HBS Num1 0.00 mIU/mL (0-7.99); HBc Num1 0.08 S/CO (0.00-0.79); HBsAGNum1 0.37 S/CO (0.00-0.99); Hepatitis A Antibody IgM 0.17 Index (0-0.79); Hepatitis B Surface Antigen Negative (Negative); ~HepC Num1 0.09 S/CO (0.00-0.79); ~Hepatitis A Antibody IgM Nonreactive (Nonreactive); ~Hepatitis B Surface Antibody NONREACTIVE (Nonreactive); ~Hepatitis C Antibody Nonreactive (Nonreactive)
[2024-09-30 09:40] LABS: Alanine Aminotransferase 40 U/L (0-40); Albumin Level 4.6 g/dL (3.5-5.0); Alkaline Phosphatase 72 U/L (39-117); Aspartate Amino Transferase 31 U/L (5-37); Iron 93 mcg/dL (45-160); Percent Iron Saturation 33 % (15-50); Total Iron Binding Capacity 284 mcg/dL (228-428); Total Protein 7.3 g/dL (6.5-8.0); Unsaturated Iron Binding 191 ug/dL
[2024-09-30 09:47] LABS: Ferritin 365 ng/mL (20-250)
[2024-10-03 11:25] LABS: Anti Nuclear Antibody Pattern Nuclear, Speckled; Anti Nuclear Antibody Screen POSITIVE (NEGATIVE); Anti Nuclear Antibody Titer 1:40 titer
[2024-10-06 14:42] LABS: FIB-ALT 26 U/L (9-46); FIB-Alpha-2-Macroglobulin 106 mg/dL (106-279); FIB-Apolipoprotein A1 170 mg/dL (94-176); FIB-GGT 17 U/L (3-70); FIB-Haptoglobin 92 mg/dL (43-212); FIB-Total Bilirubin 0.9 mg/dL (0.2-1.2); Liver Fibrosis Score 0.12; Liver Fibrosis Stage F0; Nec Inflam Act Grade A0; Nec Inflam Act Score 0.09
== END 2024-09-30 08:00 | disposition home or self-care (01) ==
LOC: HO.US 07:59
PROVIDERS: PCP Internal Medicine; Visit Provider Internal Medicine Gastroenterology
DX: Z01.84 Encounter for antibody response examination (principal); Z11.59 Encounter for screening for other viral diseases; R94.5 Abnormal results of liver function studies
CPT/HCPCS: 36415; 76700; 80076; 81596; 82728; 83540; 86015; 86038; 86039; 86381; 86704; 86706; 86709; 86803; 87340

== ENCOUNTER → 2024-09-30 08:12 | Outpatient (BNV) | payer OTHER, SELFPAY | PROVIDERS: PCP Internal Medicine; Visit Provider Radiology Diagnostic Radiology | DX: K76.0 Fatty (change of) liver, not elsewhere classified (principal) | CPT/HCPCS: 76700 ==

== ENCOUNTER 2024-10-26 07:37 | Day surgery (SDC) | payer OTHER, SELFPAY ==
[2024-10-26 08:11] VITALS: BMI 251.2
[2024-10-26 08:12] VITALS: BP 127/85; PULSE 63; RESP 16; TEMP 36.3; O2SAT 97
--- NOTE | 2024-10-26 09:47 | MHC.SHP ---
Pre-Procedural Eval Section A - 24 Hr Update-Section A only Date of Service: 10/26/24 The patient is an INPATIENT: No Changes since office visit: No Cold of Flu in the past 2 weeks, No New Medical Problems, No Changes in Medication and No Patient answered all questions The patient has been examined within 24 hours of the surgical procedure. The History & Physical has been completed within 30 days and I have reviewed it.: Yes Section B - Complete if H&P > 30 days Chief Complaint: Trigger finger, left middle finger Allergies: Allergies Allergy/AdvReac Type Severity Reaction Status Date / Time No Known Allergies Allergy Verified 09/08/24 11:47 Plan Diagnosis/Plan: Unchanged I have reviewed the history and physical and performed a pertinent physical examination on my patient. No changes have occurred unless specified. Time Spent With Patient Time: Total time managing care of this patient today ____ minutes.
--- NOTE | 2024-10-26 09:48 | P.OP_ITS ---
Operative Note Operative Note Date of Service: 10/26/24 Narrative: Operative Note Preop diagnosis: 1. Left middle finger Trigger finger Postop diagnosis: Same Procedure: 1. Left middle finger A1 susanne release Surgeon: Irlanda Martinez MD Rn Support Services: None Anesthesia: local block using 1% lidocaine with epinephrine Findings: No locking or catching after A1 susanne release EBL: Less than 5 mL Tourniquet time: None Specimens: None Complications: None Disposition: Brought to recovery room in stable condition Plan: Follow-up for 10-14 days for wound check and suture removal Indications: The patient is 63 years old, with a left middle finger trigger finger that has been unresponsive to nonoperative management. The risks and benefits of operative treatment including but not limited to risk of damage to blood vessels, nerves, tendons, infection, persistent pain, persistent symptoms, recurrence or possible need for additional surgery were discussed with the patient and the patient wishes to proceed with surgery. Procedure: Once consent was obtained a local block was performed in the preop area using a combination of 1% lidocaine with epinephrine. He was very anxious during the injection but did well. The patient was then brought back to the operating suite and placed on the operative table in supine position. The left upper extremity was prepped and draped in a standard surgical fashion. Once assured that we had a good block, a 1.5 cm oblique incision was made centered over the A1 susanne of the left middle finger . The incision was made through the skin to the subcutaneous tissues using a #15 blade. Careful dissection was made down to the level of the A1 susanne using tenotomy scissors, with care being taken to protect the nearby neurovascular structures. A longitudinal incision was made in the A1 susanne 1st using a #15 blade, then using tenotomy scissors under direct visualization. The A1 susanne was noted to be thickened. Following our A1 susanne release, we no longer saw any locking or catching of the digit with flexion and extension. Once satisfied with our A1 susanne release the wound was copiously irrigated with normal saline and hemostasis was obtained with a brief period of local pressure. The skin edges were reapproximated with some 5.0 nylon suture material and a sterile dressing was applied. The patient appears to have tolerated the procedure well and with no complications. All digits were well vascularized at the conclusion of the case.
--- NOTE | 2024-10-26 10:54 | PC.NURSE ---
POST OP VITAL SIGNS; 98/57, 02 97%, HR 49
== END 2024-10-26 10:53 | disposition home or self-care (01) ==
PROVIDERS: PCP Internal Medicine; Visit Provider Orthopaedic Surgery
PROC: (CPT 26055; principal; 2024-10-26 09:30)
DX: M65.332 Trigger finger, left middle finger (principal); I10 Essential (primary) hypertension; C61 Malignant neoplasm of prostate; Z90.79 Acquired absence of other genital organ(s); Z98.890 Other specified postprocedural states
CPT/HCPCS: 26055; J0165; J2003

== ENCOUNTER → 2024-10-26 07:37 | Outpatient (BNV) | payer OTHER, SELFPAY | PROVIDERS: PCP Internal Medicine; Visit Provider Orthopaedic Surgery | DX: M65.332 Trigger finger, left middle finger (principal) | CPT/HCPCS: 26055 ==

== ENCOUNTER 2024-11-06 08:45 | Outpatient (REF) | payer OTHER, SELFPAY ==
[2024-11-06 12:18] LABS: Alanine Aminotransferase 36 U/L (0-40); Albumin Level 4.3 g/dL (3.5-5.0); Alkaline Phosphatase 81 U/L (39-117); Aspartate Amino Transferase 31 U/L (5-37); Total Protein 6.8 g/dL (6.5-8.0)
== END 2024-11-06 08:46 | disposition home or self-care (01) ==
LOC: HO.LNP 08:45
PROVIDERS: Visit Provider Internal Medicine
DX: R79.89 Other specified abnormal findings of blood chemistry (principal)
CPT/HCPCS: 80076

== ENCOUNTER 2024-11-10 10:07 | Outpatient (AMB) | payer OTHER, SELFPAY ==
--- OUTSIDE RECORDS SUMMARY | 2024-07-14 09:57 | XMS_ITS ---
Author Organization Arturo Martinez MD Address [address] [place] [phone] Care Team Providers Care Tank Truck Operator Name Role Phone Arturo Martinez Primary Care Provider REASON FOR VISIT referral Encounters Encounter Location Date Provider Diagnosis Arturo Martinez MD [facility] [address] [place] [phone] 07/14/2024 Arturo Martinez Plan Of Treatment Next Appt Details Provider Name:Arturo rasheed, 07/01/2025 07:00:00 AM, [address] [place] [address], [address], [phone], Provider Name:Arturo rasheed, 07/08/2025 08:30:00 AM, [address] [place] [address], [address], [phone], Progress Notes * Alexsander RUIZ RDOB:1960 (63 yo M)Acc No.[id number]:07/14/2024 Patient: Alexsander ELLIOTT :1960 A ge:63 Y S ex:Male Address:[address] [place] [phone] * true * Date: Generated for Nitish levin/Tyrese/Robertsmitting on: 0 11/10/2024 12:17 PM EDT
--- OUTSIDE RECORDS SUMMARY | 2024-07-31 03:00 | XMS_ITS ---
Author Organization Arturo Martinez MD Address [address] [place] [phone] Care Team Providers Care Labor Specialist Name Role Phone Arturo Martinez Primary Care Provider [phone] Results Component Value Reference Range Notes Liver Panel Reviewed date:07/31/2024 12:44:23 PM Interpretation: Performing Lab:[facility], [address] [place] [phone] Notes/Report: Bilirubin Total 1.2 0.0-1.0 mg/dL Bilirubin [...] Location Date Provider Diagnosis Arturo Martinez MD [address] [place] [phone] 07/31/2024 Arturo Martinez Elevated liver function tests R79.89 Assessments Encounter Date Diagnosis (ICD Code) Assessment Notes Treatment Notes Treatment Clinical Notes Section Notes 07/31/2024 Elevated liver function tests (ICD-10 - R79.89) Plan Of Treatment Next Appt Details Provider Name:Arturo rasheed, 07/01/2025 07:00:00 AM, [address] [place] [address], [address], [phone], Provider Name:Arturo rasheed, 07/08/2025 08:30:00 AM, [address] [place] [address], [place] [address], [place], [phone], Progress Notes * Alexsander RUIZ RDOB:1960 (63 yo M)Acc No.[id number]:07/31/2024 Progress Note Patient: Alexsander ELLIOTT Provider: Girish Martinez MD :1960 A ge:63 Y S ex:Male Date:07/31/2024 Address:[address] [place] [address], [id number] Subjective: * Chief Complaints: * 1 . [...] 0 07/31/2024 Generated for Nitish levin/Tyrese/Jesus on: 0 11/10/2024 12:17 PM EDT
--- OUTSIDE RECORDS SUMMARY | 2024-07-31 09:16 | XMS_ITS ---
Author Organization Arturo Martinez MD Address [address] [place] [phone] Care Team Providers Care Installation And Service Technician Name Role Phone Arturo Martinez Primary Care Provider REASON FOR VISIT referral Encounters Encounter Location Date Provider Diagnosis Arturo Martinez MD [address] [place] [address] [place] [phone] 07/31/2024 Arturo Martinez Plan Of Treatment Next Appt Details Provider Name:Arturo rasheed, 07/01/2025 07:00:00 AM, [address] [place] [address], [address], [phone], Provider Name:Arturo rasheed, 07/08/2025 08:30:00 AM, [address] [place] [address], [address], [phone], Progress Notes * Alexsander RUIZ RDOB:1960 (63 yo M)Acc No.[id number]:07/31/2024 Patient: Alexsander ELLIOTT :1960 A ge:63 Y S ex:Male Address:[address] [place] [phone] * true * Date: Generated for Nitish levin/Tyrese/Robertsmitting on: 0 11/10/2024 12:17 PM EDT
--- OUTSIDE RECORDS SUMMARY | 2024-08-05 05:09 | XMS_ITS ---
Author Organization Arturo Martinez MD Address [address] [place] [phone] Care Team Providers Care Wellhead Pumper Name Role Phone Arturo Martinez Primary Care Provider [phone] REASON FOR VISIT Recent Blood Work Encounters Encounter Location Date Provider Diagnosis Arturo Martinez MD 10 [facility] [address] [place] [phone] 08/05/2024 Arturo Martinez Plan Of Treatment Next Appt Details Provider Name:Arturo rasheed, 07/01/2025 07:00:00 AM, [address] [place] [address], [address], [phone], Provider Name:Arturo rasheed, 07/08/2025 08:30:00 AM, [address] [place] [address], [address], [phone], Progress Notes * Jarrett RUIZ RDOB:1960 (63 yo M)Acc No.[id number]:08/05/2024 Patient: Jarrett ELLIOTT :1960 A ge:63 Y S ex:Male Address:[address] [place] [phone] * true * Date: Generated for Nitish levin/Tyrese/Robertsmitting on: 0 11/10/2024 12:16 PM EDT
--- OUTSIDE RECORDS SUMMARY | 2024-11-06 04:45 | XMS_ITS ---
Author Organization Arturo Martinez MD Address [address] [place] [phone] Care Team Providers Care Director Foundation Name Role Phone Arturo Martinez Primary Care Provider Results Component Value Reference Range Notes Liver Panel Reviewed date:11/06/2024 12:51:33 PM Interpretation: Performing Lab:[facility], [address] [place] [phone] Notes/Report: Bilirubin Total 0.9 0.0-1.0 mg/dL Bilirubin Direct 0.3 0.0-0.5 mg/dL Aspartate Amino Transferase 31 5-37 U/L Alanine Aminotransferase 36 0-40 U/L Total Protein 6.8 6.5-8.0 g/dL Albumin Level 4.3 3.5-5.0 g/dL Alkaline Phosphatase 81 39-117 U/L REASON FOR VISIT Repeat Liver Function Encounters Encounter Location Date Provider Diagnosis Arturo Martinez MD [address] [place], [place] [phone] 11/06/2024 Arturo Martinez Elevated liver function tests R79.89 Assessments Encounter Date Diagnosis (ICD Code) Assessment Notes Treatment Notes Treatment Clinical Notes Section Notes 11/06/2024 Elevated liver function tests (ICD-10 - R79.89) Plan Of Treatment Next Appt Details Provider Name:Arturo Knutson iesevero, 07/01/2025 07:00:00 AM, [address], [place], [place], [phone], Provider Name:Arturo Knutson iesevero, 07/08/2025 08:30:00 AM, [address] [place] [address], [address], [place], [place], [phone], Progress Notes * Alexsander RUIZ RDOB:1960 (63 yo M)Acc No.[id number]:11/06/2024 Progress Note Patient: Alexsander ELLIOTT Provider: Girish Martinez MD :1960 A ge:63 Y S ex:Male Date:11/06/2024 Address:[address] [place] [phone] Subjective: * Chief Complaints: * 1 . [...] MD Date: 0 11/06/2024 Generated for Nitish levin/Tyrese/Ольгаitting on: 11/10/2024 12:16 PM EDT
--- NOTE | 2024-11-10 10:10 | MHC.OFFVIS ---
Vital Signs 11/10/24 10:11 Height 5 ft 9 in Weight 171 lb BMI 25.2 Intake Visit Reasons: PO LT MF trigger 10/26/24 AR Intake Note: Alexsander is a 63 year old right hand dominant male who presents today post-operatively status post Left Middle Finger Trigger Release performed by Dr. Martinez on 10/26/24. Patient reports he is doing well. Denies any finger locking. He is not taking any pain medication at this time. Patient is tender to the touch. Sutures removed and steri strips applied. Allergies No Known Allergies Allergy (Verified 11/10/24 10:21) HPI HPI PO LT MF trigger 10/26/24 AR: Details: Alexsander is a 63 year old right hand dominant male who presents today post-operatively status post Left Middle Finger Trigger Release performed by Dr. Martinez on 10/26/24. Patient reports he is doing well. Denies any finger locking. He is not taking any pain medication at this time. Patient is tender during suture removal. Sutures removed and steri strips applied. 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 Review of Systems Const All systems reviewed & are unremarkable except as noted in HPI and below Physical Exam Vital Signs: BMI result Body Mass Index 25.2 Const General: no acute distress and alert Orientation/consciousness: patient oriented x3 Neuro General: patient oriented x3 Extrem Other: Evaluation of Bilateral Upper Extremity: The patient is alert, oriented, and in no acute distress Neuro: Median, Ulnar, Radial nerves motor and sensory intact and sensation is normal to the tips of all digits Vascular: Cap refill brisk ROM: He can make a fist and extend all his digits No further tenderness to palpation of the left middle finger A1 susanne Tenderness to palpation and visible and palpable locking and catching at the A1 susanne of the right ring finger Well approximated and well healing incision site noted over the A1 susanne of the left middle finger Psych Appearance: grossly normal Affect: normal affect Attitude: cooperative Assessment & Plan Assessment & Plan (1) Trigger finger, left middle finger: Code(s): M65.332 - Trigger finger, left middle finger Category: Medical (2) Trigger ring finger of right hand: Code(s): M65.341 - Trigger finger, right ring finger Category: Medical Plan 1. Right ring finger trigger finger I educated the patient about the condition. I discussed both operative and nonoperative treatment options. The patient would like to proceed with surgery. The risks and benefits of operative treatment were discussed with the patient and the patient wishes to proceed with surgery. These risks include, but are not limited to, risk of damage to blood vessels, nerves, tendons, infection, recurrence, incomplete relief of preoperative symptoms, persistent pain, possible need for further surgery, and the risks associated with regional blocks and/or anesthesia. Plan is to take the patient to the operating room at some point in the next few weeks for the following procedures: 1. Right ring finger trigger release under local All of the preoperative paperwork including the consent was discussed today. All of the patient's questions were answered in the clinic today. The patient understands that they will be in contact with our manager surgical to discuss scheduling their procedure. Patient denies diabetes, blood thinners, asthma, heart issues, lung issues, kidney issues, or current smoking. 2. Status post left middle finger trigger release Patient appears to be recovering well postoperatively Patient is educated about the typical recovery course Sutures removed, Steri-Strips applied without issue No under water times one-week, 2 lb weight limit times 2 weeks Patient understands this is amenable to this plan Coding Level of Care Code Est Pt Level 4 (93587) Diagnoses Trigger finger, left middle finger M65.332 Trigger ring finger of right hand M65.341
[2024-11-10 10:11] VITALS: BMI 25.2
--- OUTSIDE RECORDS SUMMARY | 2024-11-10 12:16 | XMS_ITS | Clinical Summary ---
Author Organization [facility], Address [address] [place] [address] Phone Care Team Providers Care Autocad Designer Name Role Phone Arturo Martinez MD Primary Care Provider [phone] Allergies Active Allergy Reactions Criticality Noted Date [...] Visit [facility], [address] [place] [address] Alex Gamino MD [address] [place] [address] Health Maintenance Due Date Last Done Comments Pneumococcal Vaccine: 50+ Ye ars (1 of 2 - PCV) 12/24/1978 Colorectal Cancer Screening: Annual FOBT 12/24/2008 Colorectal Cancer Screening: Colonoscopy 12/24/2008 Colorectal Cancer Screening: Sigmoidoscopy 12/24/2008 Influenza Vaccine (#1) 2024 Hepatitis B Vaccine Aged Out No longe r eligible based on patient's age to complete this topic Insurance Care Teams Autocad Designer Relationship Specialty Start Date End Date Arturo Martinez MD [address] [place] [address] [address] [place], [place] PCP - General Internal Medicine 05/08/19
--- OUTSIDE RECORDS SUMMARY | 2024-11-10 12:16 | XMS_ITS | Encounter Summary ---
Author Organization [facility] Address [address] [place] [address] Phone Care Team Providers Care Electronic Systems Technician Name Role Phone Arturo Martinez MD Primary Care Provider [phone] Encounter Details Date Type Department Care Team (Late Contact Info) Description 03/08/2022 Documentation Only [facility] [address] [place] [address] Alex Gamino MD [address] [place] [address] [place] [address] Social History Tobacco Use Types [...] Visit [facility] [address] [place] [address] Alex Gamino MD [address] [place] [address] [place] [address] documented as of this encounter Visit Diagnoses Not on filedocumented in this encounter Care Teams Electronic Systems Technician Relationship Specialty Start Date End Date Arturo Martinez MD [address] [place] [address] [place] [address] PCP - General Internal Medicine 05/08/19 documented as of this encounter
--- OUTSIDE RECORDS SUMMARY | 2024-11-10 12:17 | XMS_ITS | Encounter Summary ---
Author Organization [facility] Address [address] [place] [address] Phone Care Team Providers Care Rn Wellness Name Role Phone Arturo Martinez MD Primary Care Provider [phone]- [phone] Encounter Details Date Type Department Care Team (Late st Contact Info) Description 03/03/2024 Documentation Only [facility] [address] [place] [address] [place]ienne [place], [place] [address] [place] [address] Social History Tobacco Use Types [...] Visit [facility] [address] [place] [address] Alex Gamino MD [address] [place] [address] [place] [address] documented as of this encounter Visit Diagnoses Not on filedocumented in this encounter Care Teams Rn Wellness Relationship Specialty Start Date End Date Arturo Martinez MD [address] [place] [address] [address] [place], [place] PCP - General Internal Medicine 05/08/19 documented as of this encounter
--- OUTSIDE RECORDS SUMMARY | 2024-11-10 12:17 | XMS_ITS | Encounter Summary ---
Author Organization [facility] Address [address] [place] [address] Phone Care Team Providers Care Food Safety Auditor Name Role Phone Arturo Martinez MD Primary Care Provider +1- [phone] Encounter Details Date Type Department Care Team (Late st Contact Info) Description 03/19/2024 Documentation Only [facility] [address] [place] [address] [place]ienne [place], [place] [address] [place] [address] Social History Tobacco Use Types [...] Visit [facility] [address] [place] [address] Alex Gamino MD [address] [place] [address] [place] [address] documented as of this encounter Visit Diagnoses Not on filedocumented in this encounter Care Teams Food Safety Auditor Relationship Specialty Start Date End Date Arturo Martinez MD [address] [place] [address] [address] [place], [place] PCP - General Internal Medicine 05/08/19 documented as of this encounter
--- OUTSIDE RECORDS SUMMARY | 2024-11-10 12:17 | XMS_ITS | Encounter Summary ---
Author Organization [facility] Address [address] [place] [address] Phone Care Team Providers Care Economic Manager Name Role Phone Arturo Martinez MD Primary Care Provider [phone]- [phone] Encounter Details Date Type Department Care Team (Late Contact Info) Description 02/23/2021 Documentation Only [facility] [address] [place] [address] Alex Gamino MD [address] [place] [address] [place] [address] Social History Tobacco Use Types [...] Visit [facility] [address] [place] [address] Alex Gamino MD [address] [place] [address] [place] [address] documented as of this encounter Visit Diagnoses Not on filedocumented in this encounter Care Teams Economic Manager Relationship Specialty Start Date End Date Arturo Martinez MD [address] [place], [place] PCP - General Internal Medicine 05/08/19 documented as of this encounter
--- OUTSIDE RECORDS SUMMARY | 2024-11-10 12:17 | XMS_ITS | Patient Health Record ---
Author Organization Arturo Martinez MD Address [address] [place] [phone] Care Team Providers Care Java User Interface Developer Name Role Phone Arturo Martinez Primary Care Provider [phone] Allergies Allergen (clinical drug ingredient) Drug/Non Drug Allergy documented on EMR Reaction Allergy Type Onset Date Status irbesartan Irbesartan pancreatiies Drug Allergy Active hydrochlorothiazide Hydrochlorothiazide cramps a nd elevted bun and cr Drug Allergy Active Results Component Value Reference Range Notes Complete Blood Count Auto Di ff Reviewed date:06/26/2024 12:33:18 PM Interpretation: Performing Lab:[facility], [address] [place] [phone] Notes/Report: White Blood Count 5.9 4.8-10.8 X10*3/uL [...] NRBC Abs Auto 0.000 0.0-0.012 X10*3/uL Comprehensive [place]. Panel Fa st Reviewed date:06/26/2024 12:20:00 PM Interpretation: Performing Lab:[facility], [address] [place] [phone] Notes/Report: Sodium 138 135-145 mmol/L Potassium 4.7 [...] Panel Reviewed date:06/26/2024 12:20:33 PM Interpretation: Performing Lab:[address] [address] Notes/Report: Triglycerides 44 <150 mg/dL Desirable Triglyceride: [...] (Free>4and<10) Reviewed date:06/26/2024 12:11:39 PM Interpretation: Performing Lab:[address] [address] Notes/Report: PSA,Total (Free>4and<10) < 0.10 0.00-4.00 ng/mL [...] t Reviewed date:06/26/2024 01:00:46 PM Interpretation: Performing Lab:[facility], [address] [place] [phone] Notes/Report: Urine, Clean Catch Color Urine Yellow Appearance Urine Clear PH 5.5 5.0-9.0 Glucose Urine UA Negative Negative mg/dL Urine Blood Negative Negative Specific [place] - Urine 1.020 1.005-1.025 Urine Protein Negative Neg-Trace mg/dL Urine Ketones Negative Negative mg/dL Nitrite Urine Negative Negative Leukocyte Esterase Urine Negative Negative RBC Urine 0-2 0-2 /HPF WBC Urine 0-5 0-5 /HPF Squamous Epithelial Cell Urine 0-2 0-2 /HPF Bacteria Urine None Seen None Seen Hyaline Casts Urine 0-2 0-2 /LPF Liver Panel Reviewed date:07/31/2024 12:44:23 PM Interpretation: Performing Lab:[facility], [address] [place] [phone] Notes/Report: Bilirubin Total 1.2 0.0-1.0 mg/dL Bilirubin Direct 0.4 0.0-0.5 mg/dL Aspartate Amino Transferase 32 5-37 U/L Alanine Aminotransferase 48 0-40 U/L Total Protein 7.0 6.5-8.0 g/dL Albumin Level 4.5 3.5-5.0 g/dL Alkaline Phosphatase 73 39-117 U/L Liver Panel Reviewed date:11/06/2024 12:51:33 PM Interpretation: Performing Lab:[facility], [address] [place] [phone] Notes/Report: Bilirubin Total 0.9 0.0-1.0 mg/dL Bilirubin Direct 0.3 0.0-0.5 mg/dL Aspartate Amino Transferase 31 5-37 U/L Alanine Aminotransferase 36 0-40 U/L Total Protein 6.8 6.5-8.0 g/dL Albumin Level 4.3 3.5-5.0 g/dL Alkaline Phosphatase 81 39-117 U/L Comprehensive Met. Panel Reviewed date:08/14/2024 01:00:07 PM Interpretation: Performing Lab:[facility], [address] [place] [phone] Notes/Report: Sodium 138 135-145 mmol/L Potassium 4.9 [...] Acid Reviewed date:08/14/2024 12:41:12 PM Interpretation: Performing Lab:[facility], [address] [place] [phone] Notes/Report: Uric Acid 4.7 3.4-7.0 mg/dL US abdomen complete Reviewed date:09/30/2024 02:14:09 PM Interpretation: Performing Lab: Notes/Report: [address] [address] Ultrasound Report Signed Patient: Alexsander Ruiz MR#: [id number] : 1960 Acct:[id number] Age/Sex: 63 / M ADM Date: 09/30/24 Loc: HO.US Attending Dr: Jayme August MD Ordering Physician: Jayme August MD Date of Service: 09/30/24 Procedure(s): US abdomen complete Accession Number(s): [id number] cc: Arturo Martinez MD; Jayme August MD [...] 09/30/24 0840 DD/ 0820 TD/TT: 09/30/24 0829 Smash Hand: [place] [address] Ultrasound Report Signed Patient: Alexsander Ruiz MR#: [id number] : 1960 Acct:[id number] Age/Sex: 63 / M ADM Date: 09/30/24 Loc: HO.US Attending Dr: Adela August MD Ordering Physician: Jayme August MD Date of Service: 09/30/24 Procedure(s): US abdomen complete Accession Number(s): [id number] cc: Arturo Martinez MD; Jayme August MD [...] 09/30/24 0840 DD/ 0820 TD/TT: 09/30/24 0829 Smash Hand: Reason For Referral Reason Nodule of finger [...] Arleen Clancy 0 07/06/2024 01:42:08 PM > [place] [employer] referral [id number] visits 07-06-24 to 09-18-24, Arleen Clancy 07/06/2024 01:43:20 PM > referral info faxed, Arleen Clancy 07/20/2024 02:00:51 PM > was [...] Problem Status W/U Status Risk Notes Problem 223901588 Irritable bowel syndrome with diarrhea (K58.0) Active confirmed Problem Gout (72981779) Gout (M10.9) Active confirmed Problem 34597000 Gilbert syndrome (E80.4) Active confirmed Problem 96916836 Essential hypertension (I10) Active confirmed Problem 920701740 Prostate cancer (C61) Active confirmed Problem 66296724 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 Problem 702324502 Multiple falls (R29.6) Active confirmed Problem 33959248 Acute idiopathic gout of right foot (M10.071) Active confirmed Problem 39498929 LEÓN (obstructive sleep apnea) (G47.33) Active confirmed Problem 996141470 Idiopathic acute pancreatitis without infection or necrosis (K85.00) Active confirmed Problem Abdominal aortic atherosclerosis (586381708) Abdominal aortic atherosclerosis (I70.0) Active confirmed Problem 475914920 Acute gout of le ft ankle, unspecified cause (M10.9) Active confirmed Vital Signs Blood pressure diastolic 70 mm Hg 07/03/2024 Height 71.5 in 07/03/2024 Blood pressure systolic 128 mm Hg 07/03/2024 Weight 173 lbs 07/03/2024 BMI 23.79 kg/m2 07/03/2024 Encounters Encounter Location Date Provider Diagnosis Arturo Martinez MD [address] [place] [address] [id number] 01/02/2024 Arturo Martinez Essential hypertensi on I10 and Gout M10.9 Arturo Martinez MD [address] [place] [id number] 06/26/2024 Arturo Martinez Blood tests for rout ine general physical examination Z00.00 ; Essential hypertension I10 and Abdominal aortic atherosclerosis I70.0 Arturo Martinez MD [address] [place] [address] [id number] 07/31/2024 Arturo Martinez Elevated liver funct ion tests R79.89 Arturo Martinez MD [address] [place] [address] [id number] 11/06/2024 Arturo Martinez Elevated liver funct ion tests R79.89 Arturo Martinez MD [address] [place] [address] [address] [place] [address] [id number] 07/03/2024 Arturo Martinez Annual physical exam Z00.00 ; Elevated LFTs R79.89 ; Skin lesion L98.9 ; Nodule of finger 782.2 ; Essential hypertension I10 ; Irritable bowel syndrome with diarrhea K58.0 ; Colon cancer screening Z12.11 and Depression screening Z13.31 Arturo Martinez MD [address] [place] [address] [id number] 07/14/2024 Arturo Martinez MD [address] [place] [address] [id number] 07/31/2024 Arturo Martinez MD [address] [place] [address] [id number] 08/05/2024 Arturo Martinez Assessments Encounter Date Diagnosis (ICD Code) Assessment Notes Treatment Notes Treatment Clinical Notes Section Notes 01/02/2024 Essential hypertension (ICD-10 - I10) has pages of incredible readings will continue on the same 01/02/2024 Gout (ICD-10 - M10.9) is doing well with colchicine every other day is going to see excelsior picker in few weeks 06/26/2024 Blood tests for routine general physical examination (ICD-10 - Z00.00) 07/31/2024 Elevated liver function tests (ICD-10 - R79.89) 11/06/2024 Elevated liver function tests (ICD-10 - [...] DOPPLER 05/25/2019 Next Appt Details Provider Name:Arturo Lowry Zenia ier, 07/01/2025 07:00:00 AM, [address] [facility], [address], [place], [place], [phone], Provider Name:Arturo Lowry Anabeldarian ier, 07/08/2025 08:30:00 AM, [address] [facility], [address], [place], [place], [phone], Insurance Providers Payer Name Payer Address Payer Phone Subscriber Number Group Number Insured Name Patient Relationship to Insured Coverage Start Date Coverage End Date [facility] [address] [place] [id number] [phone] [id number] Alexsander Ruiz Self - patient is the insured Medical (General) History Medical History History ICD Code Hx Diverticulosis of colon COLONOSCOPY 09/25/2010 due in ten years w/ Dr. Michel
--- OUTSIDE RECORDS SUMMARY | 2024-11-10 12:17 | XMS_ITS | Encounter Summary ---
Author Organization [facility] Address [address] [place] [address] Phone Care Team Providers Care Addiction Social Worker Name Role Phone Arturo Martinez MD Primary Care Provider +1- [phone] Encounter Details Date Type Department Care Team (Late Contact Info) Description 02/27/2021 Documentation Only [facility] [address] [place] [address] Alex Gamino MD [address] [place] [address] [place] [address] Social History Tobacco Use Types [...] Visit [facility] [address] [place] [address] Alex Gamino MD [address] [place] [address] [place] [address] documented as of this encounter Visit Diagnoses Not on filedocumented in this encounter Care Teams Addiction Social Worker Relationship Specialty Start Date End Date Arturo Martinez MD [address] [facility] [facility] [address] [place], [place] PCP - General Internal Medicine 05/08/19 documented as of this encounter
--- OUTSIDE RECORDS SUMMARY | 2024-11-10 12:17 | XMS_ITS | Encounter Summary ---
Author Organization [facility] Address [address] [place] [address] Phone Care Team Providers Care Active Directory Specialist Name Role Phone Arturo Martinez MD Primary Care Provider +1- [phone] Encounter Details Date Type Department Care Team (Late st Contact Info) Description 03/14/2023 Documentation Only [facility] [address] [place] [address] [place] [address] [place] [address] Social History Tobacco Use Types [...] Visit [facility] [address] [place] [address] Alex Gamino MD [address] [place] [address] [place] [address] documented as of this encounter Visit Diagnoses Not on filedocumented in this encounter Care Teams Active Directory Specialist Relationship Specialty Start Date End Date Arturo Martinez MD [address] [place] [address] [address] [place], [place] PCP - General Internal Medicine 05/08/19 documented as of this encounter
--- OUTSIDE RECORDS SUMMARY | 2024-11-10 12:17 | XMS_ITS | Patient Health Record ---
Author Organization [facility] Address [address] [place] [address] Care Team Providers Care Weaving Teacher Name Role Phone Juan DUKE, Arturo Primary Care Provider Jayme Chavez Jr Unavailable Allergies No Known Allergies Results Component Value Reference Range Notes Liver Panel Reviewed date:10/12/2024 08:04:24 AM Interpretation: Performing Lab:[address] [address] Notes/Report: Bilirubin Total 1.2 0.0-1.0 mg/dL Bilirubin Direct 0.4 0.0-0.5 mg/dL Aspartate Amino Transferase 31 5-37 U/L Alanine Aminotransferase 40 0-40 U/L Total Protein 7.3 6.5-8.0 g/dL Albumin Level 4.6 3.5-5.0 g/dL Alkaline Phosphatase 72 39-117 U/L IRON PROFILE Reviewed date:10/12/2024 08:04:12 AM Interpretation: Performing Lab:[facility], [address] [place] [phone] Notes/Report: Iron 93 45-160 mcg/dL Total Iron Binding Capacity 284 228-428 mcg/dL Percent Iron Saturation 33 15-50 % Unsaturated Iron Binding 191 Ferritin Reviewed date:10/12/2024 08:04:09 AM Interpretation: Performing Lab:[address] [address] Notes/Report: Ferritin 365 20-250 ng/mL Liver Fibrosis Pnl Reviewed date:10/12/2024 08:03:40 AM Interpretation: Performing Lab:[address], [place] [address] Notes/Report: Liver Fibrosis Score 0.12 Liver Fibrosis [...] a>0.62 and a<=1.00 : A3 (severe activity) ACD-Ogenp-6-Macroglobulin 106 106-279 mg/dL FIB-Haptoglobin 92 43-212 mg/dL FIB-Apolipoprotein A1 170 94-176 mg/dL FIB-Total Bilirubin 0.9 0.2-1.2 mg/dL FIB-GGT 17 3-70 U/L FIB-ALT 26 9-46 U/L Reference ID [id number] Footnote SEE NOTE The reliability of results [...] The performance characteristics have been determined by [employer], [place]. It has not been cleared or approved by the U.S. Food and Drug Administration. Performance characteristics refer to the analytical performance of the test. [employer], the associated logo, [employer] and all associated [employer] malin are the registered trademarks of [employer]. All third libertarian malin - (R) and (TM) - are the property of their respective owners. (C) 7351-5255 [employer]. All rights reserved. THIS TEST WAS PERFORMED AT: [facility] [address] [place] [address] HAYDER PAPPAS MD,PHD,VADIM ROBERTO Reflex Titer and Pattern Reviewed date:10/12/2024 08:03:49 AM Interpretation: Performing Lab:[facility], [address] [place] [phone] Notes/Report: Anti Nuclear Antibody Screen POSITIVE NEGATIVE ROBERTO IFA is a first line screen for detecting the presence of up to approximately 150 autoantibodies in various autoimmune diseases. A positive ROBERTO IFA result is suggestive of autoimmune disease and reflexes to titer and pattern. Further laboratory testing may be considered if clinically indicated. For additional information, please refer to http://education.[employer]/faq/YWH564 (This link is being provided for informational/ [...] Speckled International Consensus on ROBERTO Patterns (https://doi.org/10.1515/ vtyv-5254-7210) THIS TEST WAS PERFORMED AT: [facility] [address] [place] [phone] ANGELA EATON MD ROBERTO Titer 2 TNP ROBERTO Pattern 2 TNP ROBERTO Titer 3 TNP ROBERTO Pattern 3 TNP Mitochondrial Antibody Reviewed date:10/12/2024 08:03:38 AM Interpretation: Performing Lab:[facility], [address] [place] [address] Notes/Report: Mitochondrial Antibodies NEGATIVE NEGATIVE The specimen was negative for cytoplasmic antibodies, however additional staining was observed suggesting the presence of Antinuclear Antibodies. Consider requesting order code 249, ROBERTO Screen, IFA with Reflex to Titer and Pattern, or order code [id number], ROBERTO Screen, IFA w/reflex Titer/Pattern, and Reflex to Multiplex 11 Ab [place], if clinically indicated. THIS TEST WAS PERFORMED AT: [facility] [address] [place] [phone] ANGELA EATON MD Mitochondrial Ab Titer TNP Smooth Muscle Antibody Reviewed date:10/12/2024 08:03:33 AM Interpretation: Performing Lab:[facility], [address] [place] [phone] Notes/Report: Smooth Muscle Antibody <20 <20 U [...] type 1. THIS TEST WAS PERFORMED AT: [facility] [id number] [place] [phone] DAVID DUNCAN MD,PHD Hepatitis A,B,C Profile Reviewed date:10/12/2024 08:04:05 AM Interpretation: Performing Lab:[facility], [address] [place] [phone] Notes/Report: Hepatitis A Antibody IgM Nonreactive Nonreactive [...] date:09/30/2024 08:49:33 AM Interpretation: Performing Lab: Notes/Report: [address] [address] Ultrasound Report Signed Patient: Ethan Ruiz MR#: [id number] : 1960 Acct:[id number] Age/Sex: 63 / M ADM Date: 09/30/24 Loc: HO.US Attending Dr: Jayme August MD Ordering Physician: Jayme August MD Date of Service: 09/30/24 Procedure(s): US abdomen complete Accession Number(s): [id number] cc: Arturo Martinez MD; Jayme August MD [...] Signed By: <Electronically signed by Juan Francisco Conet MD in OV> 09/30/2440 DD/ 9 TD/TT: 09/30/24 08 News Internship: Reason For Referral Referring Provider First Name Arturo Referring Provider Last Name Juan Referring Provider Speciality Internal M edicine Referred Organization [facility] Referred Provider Jayme August Jr Referred Address [address] [place] [address],[place], [place],[address], Referred Provider Specialty Gastroentero logy General Notes Ashwini Terrazas 2024 01:59:20 PM >[facility] office for visit with Dr. August on 08-13-24 ext [phone] Referral Priority Routine Medications Medication SIG (Take, [...] Problem Status W/U Status Risk Notes Problem 565532380 Colon cancer screening (Z12.11) Active confirmed Problem 235990084 Irritable bowel syndrome with diarrhea (K58.0) Active confirmed Problem Increased liver function (45994637) LFT elevation (R94.5) Active confirmed Vital Signs Blood pressure diastolic 77 mm Hg 08/13/2024 Height 69 in 08/13/2024 Blood pressure systolic 111 mm Hg 08/13/2024 Weight 173 lbs 08/13/2024 BMI 25.54 kg/m2 08/13/2024 Encounters Encounter Location Date Provider Diagnosis [facility] [address] [place] [phone] 08/13/2024 Jayme August Jr Irritable bowel syndrome with diarrhea K58.0 ; Colon cancer screening Z12.11 and LFT elevation R94.5 [facility] [address] [place] [phone] 08/14/2024 Jayme August Jr [facility] [address] [place] [phone] 09/30/2024 Jayme August Jr [facility] [address] [place] [phone] 10/12/2024 Jayme August Jr Assessments Encounter Date Diagnosis [...] 08/13/2024 Next Appt Details Provider Name:Jayme martin Jr, 11/24/2024 07:30:00 AM, [address] [place] [address], [phone], Provider Name:Jayme martin Jr, 01/27/2025 10:20:00 AM, [address] [place] [address], [place] [address], [place], [phone], Insurance Providers Payer Name Payer Address Payer Phone Subscriber Number Group Number Insured Name Patient Relationship to Insured Coverage Start Date Coverage End Date [employer] [address] [place] [phone] [id number] ETHAN RUIZ Self - patient is the insured Medical (General) History Medical History History ICD Code hypertension prostate cancer Gout pancreatitis 04/2019, ? secondary to irb esartan past hx of kidney stone gilberts syndrome basil cell carcinoma diverticulosis Colonoscopy 01/09, tubular adenoma, 5-ye ar follow-up Surgical History Surgery Date(Month/Year) Left inguinal herniorrhaphy Prostatectomy
== END 2024-11-10 10:38 | disposition home or self-care (01) ==
LOC: HO.HOS 10:08
PROVIDERS: PCP Internal Medicine
DX: M65.332 Trigger finger, left middle finger (principal); M65.341 Trigger finger, right ring finger
CPT/HCPCS: 99214

== ENCOUNTER 2024-11-24 06:31 | Day surgery (SDC) | payer OTHER, SELFPAY ==
--- OUTSIDE RECORDS SUMMARY | 2024-10-09 07:52 | XMS_ITS | Clinical Summary ---
Author Organization [facility], Address [address] [address] Phone Care Team Providers Care Lavatory Attendant Name Role Phone Arturo Martinez MD Primary Care Provider [phone] Allergies Active Allergy Reactions Criticality Noted Date [...] Visit [facility], [address] [place] [address] Alex Gamino MD [address] [place] [address] Health Maintenance Due Date Last Done Comments Pneumococcal Vaccine: 50+ Ye ars (1 of 2 - PCV) 12/24/1978 Colorectal Cancer Screening: Annual FOBT 12/24/2008 Colorectal Cancer Screening: Colonoscopy 12/24/2008 Colorectal Cancer Screening: Sigmoidoscopy 12/24/2008 Influenza Vaccine (#1) 2024 Hepatitis B Vaccine Aged Out No longe r eligible based on patient's age to complete this topic Insurance Care Teams Lavatory Attendant Relationship Specialty Start Date End Date Arturo Martinez MD [address] [place] [address] [id number] [place], [place] PCP - General Internal Medicine 05/08/19
--- OUTSIDE RECORDS SUMMARY | 2024-10-09 07:53 | XMS_ITS | Patient Health Record ---
Author Organization [facility] Address [address] [place] [address] Care Team Providers Care Benefits Technician Name Role Phone Arturo Martinez MD Primary Care Provider Jayme Chavez Jr Unavailable [phone] Allergies No Known Allergies Results Component Value Reference Range Notes Liver Panel (Not yet review ed by provider) Interpretation: Performing Lab:[facility], [address] [place] [phone] Notes/Report: Bilirubin Total 1.2 0.0-1.0 mg/dL Bilirubin Direct 0.4 0.0-0.5 mg/dL Aspartate Amino Transferase 31 5-37 U/L Alanine Aminotransferase 40 0-40 U/L Total Protein 7.3 6.5-8.0 g/dL Albumin Level 4.6 3.5-5.0 g/dL Alkaline Phosphatase 72 39-117 U/L IRON PROFILE (Not yet review ed by provider) Interpretation: Performing Lab:[facility], [address] [place] [phone] Notes/Report: Iron 93 45-160 mcg/dL Total Iron Binding Capacity 284 228-428 mcg/dL Percent Iron Saturation 33 15-50 % Unsaturated Iron Binding 191 Ferritin (Not yet reviewed b y provider) Interpretation: Performing Lab:[address] [address] Notes/Report: Ferritin 365 20-250 ng/mL Liver Fibrosis Pnl (Not yet reviewed by provider) Interpretation: Performing Lab:[address] [address] Notes/Report: Liver Fibrosis Score 0.12 Liver Fibrosis Stage F0 Liver Fibrosis Interpretation SEE NOTE no fibrosis Fibro Test Score (f) Metavir Score f>=0 and f<=0.21 : F0 (no fibrosis) f>0.21 and f<=0.27 : F0-F1 (no fibrosis) f>0.27 and f<=0.31 : F1 (minimal fibrosis) f>0.31 and f<=0.48 : F1-F2 (minimal fibrosis) f>0.48 and f<=0.58 : F2 (moderate fibrosis) f>0.58 and f<=0.72 : F3 (advanced fibrosis) f>0.72 and f<=0.74 : F3-F4 (advanced fibrosis) f>0.74 and f<=1.00 : F4 (severe fibrosis) Nec Inflam Act Score 0.09 Nec Inflam Act Grade A0 Nec Inflam Act Interpretation SEE NOTE no activity ActiTest Score (a) Metavir Score a>=0 and a<=0.17 : A0 (no activity) a>0.17 and a<=0.29 : A0-A1 (no activity) a>0.29 and a<=0.36 : A1 (minimal activity) a>0.36 and a<=0.52 : A1-A2 (minimal activity) a>0.52 and a<=0.60 : A2 (significant activity) a>0.60 and a<=0.62 : A2-A3 (significant activity) a>0.62 and a<=1.00 : A3 (severe activity) KCI-Mjvxz-5-Macroglobulin 106 106-279 mg/dL FIB-Haptoglobin 92 43-212 mg/dL FIB-Apolipoprotein A1 170 94-176 mg/dL FIB-Total Bilirubin 0.9 0.2-1.2 mg/dL FIB-GGT 17 3-70 U/L FIB-ALT 26 9-46 U/L Reference ID [id number] Footnote SEE NOTE The reliability of results is dependent on compliance with the preanalytical and analytical conditions recommended by [employer]. The tests have to be deferred for: acute hemolysis, acute hepatitis, acute inflammation, extra hepatic cholestasis. The advice of a specialist should be sought for interpretation in chronic hemolysis and Gilbert's syndrome. The test interpretation is not validated in liver transplant patients. Isolated extreme values of one of the components should lead to caution in interpreting the results. In case of discordance between a biopsy result and a test, it is recommended to seek the advice of a specialist. The causes of these discordances could be due to a flaw of the test or to a flaw in the biopsy: i.e. a liver biopsy has a 33% variability rate for one fibrosis stage. FibroTest is interpretable for chronic hepatitis B and C, alcoholic and non alcoholic steatosis. ActiTest is interpretable for chronic hepatitis B and C. The performance characteristics have been determined by [facility]. It has not been cleared or approved by the U.S. Food and Drug Administration. Performance characteristics refer to the analytical performance of the test. [employer]zing[employer], the associated logo, [employer] and all associated [employer] malin are the registered trademarks of [employer]. All third alliance party malin - (R) and (TM) - are the property of their respective owners. (C) [id number] [employer]. All rights reserved. THIS TEST WAS PERFORMED AT: [facility] [place] [address] [place] [address] HAYDER PAPPAS MD,PHD,VADIM ROBERTO Reflex Titer and Pattern (Not yet reviewed by provider) Interpretation: Performing Lab:[facility], [address] [place] [phone] Notes/Report: Anti Nuclear Antibody Screen POSITIVE NEGATIVE ROBERTO IFA is a first line screen for detecting the presence of up to approximately 150 autoantibodies in various autoimmune diseases. A positive ROBERTO IFA result is suggestive of autoimmune disease and reflexes to titer and pattern. Further laboratory testing may be considered if clinically indicated. For additional information, please refer to http://education.Holvi.makemoji/faq/WRI209 (This link is being provided for informational/ educational purposes only.) Anti Nuclear Antibody Titer 1:40 A low level ROBERTO titer may be present in pre-clinical autoimmune diseases and normal individuals. Reference Range <1:40 Negative 1:40-1:80 Low Antibody Level >1:80 Elevated Antibody Level Anti Nuclear Antibody Pattern Nuclear, Speckled Speckled pattern is associated with mixed connective tissue disease (MCTD), systemic lupus erythematosus (SLE), Sjogren's syndrome, dermatomyositis, and systemic sclerosis/polymyositis overlap. AC-2,4,5,29: Speckled International Consensus on ROBERTO Patterns (https://doi.org/10.1515/ lrpq-2169-6871) THIS TEST WAS PERFORMED AT: [facility] [address] [place] [phone] ANGELA EATON MD ROBERTO Titer 2 TNP ROBERTO Pattern 2 TNP ROBERTO Titer 3 TNP ROBERTO Pattern 3 TNP Mitochondrial Antibody (Not yet reviewed by provider) Interpretation: Performing Lab:[facility], [address] [place] [phone] Notes/Report: Mitochondrial Antibodies NEGATIVE NEGATIVE The specimen was negative for cytoplasmic antibodies, however additional staining was observed suggesting the presence of Antinuclear Antibodies. Consider requesting order code 249, ROBERTO Screen, IFA with Reflex to Titer and Pattern, or order code [id number], ROBERTO Screen, IFA w/reflex Titer/Pattern, and Reflex to Multiplex 11 Ab Preston, if clinically indicated. THIS TEST WAS PERFORMED AT: [facility] [address] [place] [phone] ANGELA EATON MD Mitochondrial Ab Titer TNP Smooth Muscle Antibody (Not yet reviewed by provider) Interpretation: Performing Lab:[facility], [address] [place] [phone] Notes/Report: Smooth Muscle Antibody <20 <20 U Reference Range: <20 U: Negative >or=20 U: Positive Antibodies recognizing actin are the main component of smooth muscle antibodies associated with auto- immune liver disease. Actin antibodies are found in approximately 75% of patients with autoimmune hepatitis (AIH) type 1, approximately 65% of patients with autoimmune cholangitis, approximately 30% of patients with primary biliary cirrhosis and approximately 2% of healthy controls. High values are closely correlated with AIH type 1. THIS TEST WAS PERFORMED AT: [facility] DAVID DUNCAN MD,PHD Hepatitis A,B,C Profile (Not yet reviewed by provider) Interpretation: Performing Lab:[facility], [address] [place] [phone] Notes/Report: Hepatitis A Antibody IgM Nonreactive Nonreactive IgM antibodies to HAV not detected; does not exclude early acute or recovered HAV infection. Hepatitis B Surface Antibody NONREACTIVE Nonreactive Nonreactive: < 8.00 mIU/mL Hepatitis B Core Antibody Nonreactive Nonreactive Hepatitis C Antibody Nonreactive Nonreactive Antibodies to HCV not detected; does not exclude early acute HCV infection. Hepatitis B Surface Antigen Negative Negative US abdomen complete Reviewed date:09/30/2024 08:49:33 AM Interpretation: Performing Lab: Notes/Report: [address] [address] Ultrasound Report Signed Patient: Ethan Ruiz MR#: [id number] : 1960 Acct:[id number] Age/Sex: 63 / M ADM Date: 09/30/24 Loc: HO.US Attending Dr: Jayme August MD Ordering Physician: Jayme August MD Date of Service: 09/30/24 Procedure(s): US abdomen complete Accession Number(s): [id number] cc: Arturo Martinez MD; Jayme August MD EXAMINATION: US ABDOMEN HISTORY: LFT ELEVATION TECHNIQUE: Real-time grayscale ultrasound imaging of the abdomen was performed and images were reviewed. COMPARISON: There are no prior studies available for comparison. FINDINGS: Liver: The right lobe of the liver measures 13.7 cm in size. The left lobe of the liver measures 9.0 cm in size. The liver demonstrates increased echotexture, consistent with steatosis. No focal mass or intrahepatic biliary ductal dilatation is identified. There is normal hepatopedal flow in the portal vein. Gallbladder and biliary tree: The gallbladder is unremarkable, without evidence of calculi, wall thickening, or pericholecystic fluid. There is no sonographic Roy sign. The common bile duct is normal in caliber measuring 3 mm. Kidneys: The right kidney measures 11.4 cm in length. The left kidney measures 10.4 cm in length. The kidneys are unremarkable, without evidence of masses, hydronephrosis, or calculi. Pancreas: The pancreatic head, neck, and body are unremarkable. The pancreatic tail is obscured by bowel gas. Spleen: The spleen is normal in size and contour, measuring 11.3 cm in length. Abdominal aorta and inferior vena cava: The visualized portions of the abdominal aorta and inferior vena cava are normal in caliber. There is no free fluid in the abdomen. US/US abdomen complete IMPRESSION: Hepatic steatosis. Otherwise unremarkable abdominal ultrasound. 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 Martinez's office for visit with Dr. August on 08-13-24 ext [phone] Referral Priority Routine Medications Medication SIG (Take, [...] Problem Status W/U Status Risk Notes Problem 973068749 Colon cancer screening (Z12.11) Active confirmed Problem 186472831 Irritable bowel syndrome with diarrhea (K58.0) Active confirmed Problem Increased liver function (50537505) LFT elevation (R94.5) Active confirmed Vital Signs Blood pressure diastolic 77 mm Hg 08/13/2024 Height 69 in 08/13/2024 Blood pressure systolic 111 mm Hg 08/13/2024 Weight 173 lbs 08/13/2024 BMI 25.54 kg/m2 08/13/2024 Encounters Encounter Location Date Provider Diagnosis [facility] [address] [place] [address] 08/13/2024 Jayme August Jr Irritable bowel syndrome with diarrhea K58.0 ; Colon cancer screening Z12.11 and LFT elevation R94.5 [facility] [address] [place] [address] 08/14/2024 Jayme August Jr [facility] [address] [place] [phone] 09/30/2024 Jayme August Jr Assessments Encounter Date Diagnosis [...] MUSCLE ANTIBODIES 08/13/2024 US ABD 08/13/2024 Liver Panel 09/30/2024 IRON PROFILE 09/30/2024 Ferritin 09/30/2024 Liver Fibrosis Pnl 08/13/2024 Liver Fibrosis Pnl 09/30/2024 ROBERTO Reflex Titer and Pattern 08/13/2024 ROBERTO Reflex Titer and Pattern 09/30/2024 Mitochondrial Antibody 09/30/2024 Smooth Muscle Antibody 09/30/2024 Hepatitis A,B,C Profile 09/30/2024 Next Appt Details Provider Name:Jayme martin Jr, 11/24/2024 08:20:00 AM, [address] [place] [address] , [place], [place], [phone], Provider Name:Jayme martin Jr, 01/27/2025 10:20:00 AM, [address] [place] [address], [facility] [address], [place], [address], Insurance Providers Payer Name Payer Address Payer Phone Subscriber Number Group Number Insured Name Patient Relationship to Insured Coverage Start Date Coverage End Date [employer] [address] [place] [phone] [id number] ETHAN RUIZ Self - patient is the insured Medical (General) History Medical History History ICD Code hypertension prostate cancer Gout pancreatitis 04/2019, ? secondary to irb esartan past hx of kidney stone gilberts syndrome basil cell carcinoma diverticulosis Colonoscopy 01/09, tubular adenoma, 5-ye ar follow-up Surgical History Surgery Date(Month/Year) Left inguinal herniorrhaphy Prostatectomy
--- OUTSIDE RECORDS SUMMARY | 2024-10-09 07:53 | XMS_ITS | Patient Health Record ---
Author Organization Arturo Martinez MD Address [address] [place] [phone] Care Team Providers Care Teacher Dancing Name Role Phone Arturo Martinez Primary Care Provider Allergies Allergen (clinical drug ingredient) Drug/Non Drug Allergy documented on EMR Reaction Allergy Type Onset Date Status irbesartan Irbesartan pancreatiies Drug Allergy Active hydrochlorothiazide Hydrochlorothiazide cramps a nd elevted bun and cr Drug Allergy Active Results Component Value Reference Range Notes Complete Blood Count Auto Di ff Reviewed date:06/26/2024 12:33:18 PM Interpretation: Performing Lab:[facility], [address] [place] [phone] Notes/Report: White Blood Count 5.9 4.8-10.8 X10*3/uL [...] NRBC Abs Auto 0.000 0.0-0.012 X10*3/uL Comprehensive Crosby. Panel Fa st Reviewed date:06/26/2024 12:20:00 PM Interpretation: Performing Lab:[facility], [address] [place] [phone] Notes/Report: Sodium 138 135-145 mmol/L Potassium 4.7 [...] Panel Reviewed date:06/26/2024 12:20:33 PM Interpretation: Performing Lab:[address] [phone] Notes/Report: Triglycerides 44 <150 mg/dL Desirable Triglyceride: [...] (Free>4and<10) Reviewed date:06/26/2024 12:11:39 PM Interpretation: Performing Lab:[address] [phone] Notes/Report: PSA,Total (Free>4and<10) < 0.10 0.00-4.00 ng/mL [...] t Reviewed date:06/26/2024 01:00:46 PM Interpretation: Performing Lab:[facility], [address] [place] [phone] Notes/Report: Urine, Clean Catch Color Urine Yellow Appearance Urine Clear PH 5.5 5.0-9.0 Glucose Urine UA Negative Negative mg/dL Urine Blood Negative Negative Specific [place] - Urine 1.020 1.005-1.025 Urine Protein Negative Neg-Trace mg/dL Urine Ketones Negative Negative mg/dL Nitrite Urine Negative Negative Leukocyte Esterase Urine Negative Negative RBC Urine 0-2 0-2 /HPF WBC Urine 0-5 0-5 /HPF Squamous Epithelial Cell Urine 0-2 0-2 /HPF Bacteria Urine None Seen None Seen Hyaline Casts Urine 0-2 0-2 /LPF Liver Panel Reviewed date:07/31/2024 12:44:23 PM Interpretation: Performing Lab:[facility], [address] [place] [phone] Notes/Report: Bilirubin Total 1.2 0.0-1.0 mg/dL Bilirubin Direct 0.4 0.0-0.5 mg/dL Aspartate Amino Transferase 32 5-37 U/L Alanine Aminotransferase 48 0-40 U/L Total Protein 7.0 6.5-8.0 g/dL Albumin Level 4.5 3.5-5.0 g/dL Alkaline Phosphatase 73 39-117 U/L Comprehensive Met. Panel Reviewed date:08/14/2024 01:00:07 PM Interpretation: Performing Lab:[address] [address] Notes/Report: Sodium 138 135-145 mmol/L Potassium 4.9 [...] Acid Reviewed date:08/14/2024 12:41:12 PM Interpretation: Performing Lab:[facility], [address] [place] [phone] Notes/Report: Uric Acid 4.7 3.4-7.0 mg/dL US abdomen complete Reviewed date:09/30/2024 02:14:09 PM Interpretation: Performing Lab: Notes/Report: [address] [address] Ultrasound Report Signed Patient: Alexsander Ruiz MR#: [id number] : 1960 Acct:[id number] Age/Sex: 63 / M ADM Date: 09/30/24 Loc: HO.US Attending Dr: Jayme August MD Ordering Physician: Jayme August MD Date of Service: 09/30/24 Procedure(s): US abdomen complete Accession Number(s): [id number] cc: Arturo Martinez MD; Jayme August MD [...] by Juan Francisco Conte MD in OV> 09/30/24839 DD/ 9 TD/TT: 09/30/24828 Spd Manager: [place] [address] Ultrasound Report Signed Patient: Alexsander Ruiz MR#: [id number] : 1960 Acct:[id number] Age/Sex: 63 / M ADM Date: 09/30/24 Loc: HO.US Attending Dr: Adela August MD Ordering Physician: Jayme August MD Date of Service: 09/30/24 Procedure(s): US abdomen complete Accession Number(s): [id number] cc: Arturo Martinez MD; Jayme August MD EXAMINATION: US ABDOMEN HISTORY: LFT ELEVATION TECHNIQUE: Real-time grayscale ultrasound imaging of the abdomen was performed and images were reviewed. COMPARISON: There ar e no prior studies available for comparison. FINDINGS: Liver: The right lob e of the liver measures 13.7 cm in size. The left lobe of the liver measures 9.0 cm in size. The liver demonstrates increased echotextur e, consistent with steatosis. No focal mass or intrahepatic biliary ductal dilatation is identified. There is normal hepatopedal flow in the portal vein. Gallbladder and bili doug tree: The gallbladder is unremarkable, without evidence [...] obscured by bowel gas. Spleen: The spleen i s normal in size and contour, measuring 11.3 cm in length. Abdominal aorta and inferior vena cava: The visualized portions of the abdominal aorta and inferior vena cava are normal in caliber. There is no free flu id in the abdomen. US/US abdomen complete IMPRESSION: Hepatic steatosis. Otherwise unremarkable abdominal ultrasound. Electronically jose alfredo d by: Juan Francisco Conte MD 09/30/2024 08:40 AM EDT Dictated By: Juan Francisco Conte MD Signed By: <Electronically signed by Juan Francisco Conte MD in OV> 09/30/24 0840 DD/ 08 TD/TT: 09/30/24 0829 Spd Manager: Reason For Referral Reason Nodule of finger Diagnosis 1 Nodule of finger (78 2.2) Referral Organization Arturo Martinez MD Referring Provider First Name Arturo Referring Provider Last Name Juan Referring Provider Speciality Internal edicine Referred Provider Tanya Denise Referred Provider Specialty Orthopedic S urgery General Notes Arleen Clancy 0 07/03/2024 09:24:55 AM >info faxedAston Annette 07/06/2024 01:19:50 PM > not able to use this referral due to (The following servicing providers are not contracted with the selected patient's product and are not valid for this request Tanya Denise ) Referral Priority Routine Reason nodule hand Diagnosis 1 Localized swelling, mass and lump, unspecified upper limb (R22.30) Referral Organization Arturo Maritnez MD Referring Provider First Name Arturo Referring Provider Last Name Juan Referring Provider Speciality Internal M edicine Referred Provider Irlanda Martinez Referred Provider Specialty Hand Surgery General Notes Arleen Clancy 0 07/06/2024 01:42:08 PM > [place] referral [id number] visits 07-06-24 to 09-18-24Aston Annette 07/06/2024 01:43:20 PM > referral info faxed Arleen Clancy 07/20/2024 02:00:51 PM > was told patient [...] Problem Status W/U Status Risk Notes Problem 995320307 Irritable bowel syndrome with diarrhea (K58.0) Active confirmed Problem Gout (86246139) Gout (M10.9) Active confirmed Problem 40624484 Gilbert syndrome (E80.4) Active confirmed Problem 54154876 Essential hypertension (I10) Active confirmed Problem 979002053 Prostate cancer (C61) Active confirmed Problem 16600976 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 Problem 176821000 Multiple falls (R29.6) Active confirmed Problem 12626166 Acute idiopathic gout of right foot (M10.071) Active confirmed Problem 44935043 LEÓN (obstructive sleep apnea) (G47.33) Active confirmed Problem 355087038 Idiopathic acute pancreatitis without infection or necrosis (K85.00) Active confirmed Problem Abdominal aortic atherosclerosis (I70.0) Active confirmed Problem 657647890 Acute gout of le ft ankle, unspecified cause (M10.9) Active confirmed Vital Signs Blood pressure diastolic 70 mm Hg 07/03/2024 Height 71.5 in 07/03/2024 Blood pressure systolic 128 mm Hg 07/03/2024 Weight 173 lbs 07/03/2024 BMI 23.79 kg/m2 07/03/2024 Encounters Encounter Location Date Provider Diagnosis Arturo Martinez MD [address] [place] [id number] 01/02/2024 Arturo Martinez Essential hypertensi on I10 and Gout M10.9 Arturo Martinez MD [address] [place] [id number] 06/26/2024 Arturo Martinez Blood tests for rout ine general physical examination Z00.00 ; Essential hypertension I10 and Abdominal aortic atherosclerosis I70.0 Arturo Martinez MD [address] [id number] 07/31/2024 Arturo Martinez Elevated liver funct ion tests R79.89 Arturo Martinez MD [address] [place] [id number] 07/03/2024 Arturo Martinez Annual physical exam Z00.00 ; Elevated LFTs R79.89 ; Skin lesion L98.9 ; Nodule of finger 782.2 ; Essential hypertension I10 ; Irritable bowel syndrome with diarrhea K58.0 ; Colon cancer screening Z12.11 and Depression screening Z13.31 Arturo Martinez MD [address] [id number] 07/14/2024 Arturo Martinez MD [address] [place] [id number] 07/31/2024 Arturo Martinez MD [address] [id number] 08/05/2024 Arturo Martinez Assessments Encounter Date Diagnosis (ICD Code) Assessment Notes Treatment Notes Treatment Clinical Notes Section Notes 01/02/2024 Essential hypertension (ICD-10 - I10) has pages of incredible readings will continue on the same 01/02/2024 Gout (ICD-10 - M10.9) is doing well with colchicine every other day is going to see therapy tech in few weeks 06/26/2024 Blood tests for [...] 05/25/2019 Next Appt Details Provider Name:Arturo rasheed, 11/06/2024 08:45:00 AM, [address] [place] [address], [address], [phone], Provider Name:Arturo rasheed, 07/01/2025 07:00:00 AM, [address] [place] [address], [address], [phone], Provider Name:Arturo rasheed, 07/08/2025 08:30:00 AM, [address] [place] [address], [address], [phone], Insurance Providers Payer Name Payer Address Payer Phone Subscriber Number Group Number Insured Name Patient Relationship to Insured Coverage Start Date Coverage End Date [facility] [address] [place] [id number] Alexsander Ruiz Self - patient is the insured Medical (General) History Medical History History ICD Code Hx Diverticulosis of colon COLONOSCOPY 09/25/2010 due in ten years w/ Dr. Michel
[2024-11-20 11:16] VITALS: BMI 25.5
--- NOTE | 2024-11-20 13:09 | HO.ANESPROP2 ---
Documented by User: Lu Arrieta NP 11/20/24 13:10 HPI - Anesthesia Eval Consult details Narrative: 63 yr old male for colonoscopy PMFSH Active Problems Active Problems: All Active Problems (Updated 11/20/24 @ 11:13 by Kelsey Sims RN) Arthritis of carpometacarpal (CMC) joint of right thumb (Acute) Trigger ring finger of right hand (Acute) Gastrointestinal discomfort (Acute) Trigger finger, left middle finger (Acute) Gout (Acute) Sebaceous cyst (Acute) Superficial injury of left middle finger (Acute) HTN (hypertension) (Acute) S/P prostatectomy (Acute) Left inguinal hernia (Acute) Right groin pain (Acute) Past Medical History Medical History Diverticulosis Hx of basal cell carcinoma Gilbert's syndrome Hx of renal calculi Hx of pancreatitis (04/2019) Gout Elevated liver function tests IBS (irritable bowel syndrome) Prostate cancer HTN (hypertension) Family History Family History Mother Acute arthritis Surgical History Surgical History Hx of colonoscopy (12/2021) S/P trigger finger release (10/26/24) Hx of left inguinal hernia repair Hx of prostatectomy History of Problems with Anesthesia: No Social History Social History Alcohol intake: current Alcohol intake frequency: holidays/special occasions only Patient Tobacco Use Status: Never used Tobacco Use of substances other than those prescribed or required for medical reasons: No Have you been hit, kicked, punched, or otherwise hurt by someone within the past year? 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 Meds Allergies Allergy/AdvReac Type Severity Reaction Status Date / Time No Known Allergies Allergy Verified 11/24/24 06:42 Home Medications ?Medication ?Instructions ?Recorded ?Confirmed ?Last Taken ?Type carvedilol phosphate 40 mg 40 mg PO DAILY 09/05/21 11/24/24 11/24/24 05:30 History capsule,ext.[id number] multiphase lisinopril 10 mg tablet 10 mg PO DAILY 09/05/21 11/24/24 11/01/21 History allopurinol 300 mg tablet 1 tab PO DAILY 11/02/21 11/24/24 11/02/21 History ascorbic acid (vitamin C) 500 mg 500 mg PO DAILY 04/19/22 11/24/24 Unknown History capsule hyoscyamine sulfate 0.375 mg 0.375 mg PO Q12H 02/04/24 11/24/24 Unknown History tablet,extended release,12 hr Exam Height,Weight and Vital Signs: Height 5 ft 9 in Weight 78.471 kg Assessment and Plan Final Anesthetic Review History of Problems with Anesthesia: No Documented by User: Hemalatha Forde MD 11/24/24 08:11 PMFSH Past Medical History Medical History Diverticulosis Hx of basal cell carcinoma Gilbert's syndrome Hx of renal calculi Hx of pancreatitis (04/2019) Gout Elevated liver function tests IBS (irritable bowel syndrome) Prostate cancer HTN (hypertension) Family History Family History Mother Acute arthritis Family history of problems with anesthesia: No Surgical History Surgical History Hx of colonoscopy (12/2021) S/P trigger finger release (10/26/24) Hx of left inguinal hernia repair Hx of prostatectomy Social History Social History Alcohol intake: current Alcohol intake frequency: holidays/special occasions only Patient Tobacco Use Status: Never used Tobacco Use of substances other than those prescribed or required for medical reasons: No Have you been hit, kicked, punched, or otherwise hurt by someone within the past year? 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 Meds Allergies Allergy/AdvReac Type Severity Reaction Status Date / Time No Known Allergies Allergy Verified 11/24/24 06:42 Home Medications ?Medication ?Instructions ?Recorded ?Confirmed ?Last Taken ?Type carvedilol phosphate 40 mg 40 mg PO DAILY 09/05/21 11/24/24 11/24/24 05:30 History capsule,ext.[id number] multiphase lisinopril 10 mg tablet 10 mg PO DAILY 09/05/21 11/24/24 11/01/21 History allopurinol 300 mg tablet 1 tab PO DAILY 11/02/21 11/24/24 11/02/21 History ascorbic acid (vitamin C) 500 mg 500 mg PO DAILY 04/19/22 11/24/24 Unknown History capsule hyoscyamine sulfate 0.375 mg 0.375 mg PO Q12H 02/04/24 11/24/24 Unknown History tablet,extended release,12 hr Exam Airway Mallampati Class: II TM Dist: >3cm Neck ROM: Full Heart: rrr Lungs: cta Assessment and Plan Assessment Anesthesia Assessment: Anesthesia Plan Discussed and Chart Reviewed Final Anesthetic Review Family History of Problems with Anesthesia: No NPO: Yes ASA Class: III Final Preanesthetic Review: No Changes in Pt Med Stat, Meds/Allgs Chart Reviewed, Consent Obtained/Reviewed and Anes Risks/Benef Reviewed Patient Risk: Intermediate Procedure Risk: Low Anesthetic Plan Anesthetic Plan: MAC: Disposition: Standard PACU
[2024-11-24 06:41] VITALS: BMI 24.3
[2024-11-24 06:43] VITALS: BMI 24.3
[2024-11-24] MEDS: Lactated Ringers 1,000 ML 100 ML IVCONT (06:56)
[2024-11-24 07:01] VITALS: BP 130/92; PULSE 66; RESP 17; TEMP 36.2; O2SAT 97
--- NOTE | 2024-11-24 07:32 | MHC.SHP ---
Pre-Procedural Eval Section A - 24 Hr Update-Section A only Date of Service: 11/24/24 Section B - Complete if H&P > 30 days Chief Complaint: screening Details of Present Illness: see h&p no changes Relevant Family History (Specify if Yes): No Present Medications: see Short Stay Collaborative assessment Medical History: No relevant PMH History of Previous Operations: No relevant previous surgery Allergies: Allergies Allergy/AdvReac Type Severity Reaction Status Date / Time No Known Allergies Allergy Verified 11/24/24 06:42 Review of Systems Sugical H&P ROS: Negative: Constitution, Cardiovascular, Respiratory, Neurological, Psychiatric, Hem-Onc, Allergic/Immunologic, Gastrointestinal, Genitourinary, Musculoskeletal, Integumentary, Endocrine and Eyes/Ears/Nose/Throat Exam Surgical H&P Exam: Normal: HEENT, Normal: Heart, Normal: Lungs, Normal: Extremities, Normal: Abdomen, Normal: Skin and Normal: Neurological Plan Diagnosis/Plan: Unchanged I have reviewed the history and physical and performed a pertinent physical examination on my patient. No changes have occurred unless specified. Time Spent With Patient Time: Total time managing care of this patient today ____ minutes.
[2024-11-24 08:12] VITALS: BP 80/46; PULSE 61; RESP 12; TEMP 36.7; O2SAT 99
[2024-11-24 08:27] VITALS: BP 108/70; PULSE 64; RESP 16; TEMP 36.4; O2SAT 96
--- NOTE | 2024-11-24 11:48 | OP_ITS ---
DATE OF SERVICE: 11/24/2024 SURGEON: Jayme August MD INDICATIONS: Colon cancer screening and prior history of adenomatous colon polyps. PREOPERATIVE DIAGNOSIS: POSTOPERATIVE DIAGNOSIS: PROCEDURE PERFORMED: Colonoscopy to the terminal ileum. ESTIMATED BLOOD LOSS: COMPLICATIONS: ANESTHESIA: Monitored anesthesia care. ASSISTANTS: SPECIMENS: DESCRIPTION OF PROCEDURE: A history and physical was performed. The risks and benefits of the procedure were explained to the patient, and informed consent was obtained. The patient was placed in the left lateral decubitus position. A digital rectal exam was performed and was found to be normal. The Olympus pediatric video colonoscope was introduced into the rectum and advanced to the cecum. The cecum was identified by transillumination, palpation, and identification of the ileocecal valve. Examination was performed. The scope was removed. He tolerated the procedure well and was returned to the recovery area in stable condition. FINDINGS: The terminal ileum was examined and appeared normal. The visualized colonic mucosa was normal. The quality of the prep was good. No polyps were identified. There was mild sigmoid diverticulosis. Retroflexed examination showed some small internal hemorrhoids. IMPRESSION: Normal colonoscopy. RECOMMENDATION: 1. Follow up as needed. 2. Repeat colonoscopy is recommended in 5 years because of previous history of colon polyps. MD DOLLY Arora/ELBERT / [id number]
== END 2024-11-24 09:11 | disposition home or self-care (01) ==
PROVIDERS: PCP Internal Medicine; Visit Provider Internal Medicine Gastroenterology
PROC: 0DJD8ZZ Inspection of Lower Intestinal Tract, Via Natural or Artificial Opening Endoscopic (ICD-10-PCS; CPT 45378; principal; 2024-11-24 07:30)
DX: Z12.11 Encounter for screening for malignant neoplasm of colon (principal); K58.0 Irritable bowel syndrome with diarrhea; R94.5 Abnormal results of liver function studies; Z86.0101 Personal history of adenomatous and serrated colon polyps; K57.30 Diverticulosis of large intestine without perforation or abscess without bleeding; K64.8 Other hemorrhoids
CPT/HCPCS: 45378; J2003; J2704

== ENCOUNTER 2025-02-15 14:11 | Outpatient (REF) | payer BC, SELFPAY ==
--- OUTSIDE RECORDS SUMMARY | 2024-06-26 02:30 | XMS_ITS ---
Author Organization Arturo Martinez MD Address [address] [place] [phone] Care Team Providers Care Veterinary Attendant Name Role Phone Arturo Martinez Primary Care Provider [phone] Results Component Value Reference Range Notes Complete Blood Count Auto Di ff Reviewed date:06/26/2024 12:33:18 PM Interpretation: Performing Lab:[facility], [address] [place] [phone] Notes/Report: White Blood Count 5.9 4.8-10.8 X10*3/uL Red Blood Count 4.75 4.60-5.80 X10*6/uL Hemoglobin 14.6 14.0-18.0 g/dl Hematocrit 42.5 42.0-52.0 % Mean Corpuscular Volume 89.5 80.0-98.0 fL Mean Corpuscular Hemoglobin 30.7 27.0-33.0 pg Mean Corpuscular HGB Conc 34.4 31.0-36.0 g/dl Red Cell Distribution Width 12.8 11.0-16.0 % Platelet Count 218 160-400 X10*3/uL Mean Platelet Volume 10.9 9.4-12.4 fL Neutrophils Percent Auto 62.2 45-73 % Imm Gran Pct Auto 0.7 0.0-0.4 % Lymphocytes Percent Auto 23.3 20-40 % Monocytes Percent Auto 9.9 2-11 % Eosinophils Percent Auto 3.4 0-4 % Basophils Percent Auto 0.5 0-2 % NRBC Pct Auto 0.0 0.0-0.2 /100WBC Neutrophils Absolute Auto 3.7 2.0-8.3 x10*3/u L Imm Gran Abs Auto 0.04 0.00-0.03 X10*3/uL Lymphocytes Absolute Auto 1.4 1.2-4.9 X10*3/u L Monocytes Absolute Auto 0.6 0.1-1.2 X10*3/uL Eosinophils Absolute Auto 0.2 0.0-0.4 X10*3/u L Basophils Absolute Auto 0.0 0.0-0.2 X10*3/uL NRBC Abs Auto 0.000 0.0-0.012 X10*3/uL Comprehensive Chlor[place]. Panel Fa st Reviewed date:06/26/2024 12:20:00 PM Interpretation: Performing Lab:[facility], [address] [place] [phone] Notes/Report: Sodium 138 135-145 mmol/L Potassium 4.7 3.3-5.1 mmol/L Chloride 108 96-108 mmol/L Carbon Dioxide 26 22-29 mmol/L Anion Gap 9 12-20 Blood Urea Nitrogen 15 9-16 mg/dL Creatinine 1.22 0.5-1.4 mg/dL Estimated Glomerular Filt Rate 60 Chronic Kidney Disease: Estimated GFR < 60 mL/min/1.73m2 Severe Kidney Disease: Estimated GFR < 15 mL/min/1.73m2 Glucose Fasting 97 60-99 mg/dL Calcium 9.0 8.4-10.2 mg/dL Bilirubin Total 1.1 0.0-1.0 mg/dL Aspartate Amino Transferase 38 5-37 U/L Alanine Aminotransferase 55 0-40 U/L Total Protein 6.9 6.5-8.0 g/dL Albumin Level 4.2 3.5-5.0 g/dL Alkaline Phosphatase 75 39-117 U/L Lipid Panel Reviewed date:06/26/2024 12:20:33 PM Interpretation: Performing Lab:[facility], [address] [place] [phone] Notes/Report: Triglycerides 44 <150 mg/dL Desirable Triglyceride: less than 150 mg/dL Borderline High Triglyceride 150-199 mg/dL High Triglyceride: 200-499 mg/dL Very High Triglyceride: greater than or equal to 5OO mg/dL Cholesterol 138 <200 mg/dL Desirable Cholesterol: less than 200 mg/dL Borderline High Cholesterol: 200-239 mg/dL High Cholesterol: greater than 239 mg/dL LDL Cholesterol Calculated 81 <100 mg/dL Desirable LDL: less than 100 mg/dL Near Optimal/Above Optimal LDL: 110-129 mg/dL Borderline High LDL: 130-159 mg/dL High LDL: 160-189 mg/dL Very High LDL: greater than or equal to 190 mg/dL HDL Cholesterol 49 >40 mg/dL Desirable HDL: greater than 40 mg/dL Note: This HDL assay may give artificially low results in patients with liver disease. PSA,Total (Free>4and<10) Reviewed date:06/26/2024 12:11:39 PM Interpretation: Performing Lab:[facility], [address] [place] [phone] Notes/Report: PSA,Total (Free>4and<10) < 0.10 0.00-4.00 ng/mL [...] (CMIA) UA ClnCatch+Micro w/rflx Cul t Reviewed date:06/26/2024 01:00:46 PM Interpretation: Performing Lab:[facility], [address] [place] [phone] Notes/Report: Urine, Clean Catch Color Urine Yellow Appearance Urine Clear PH 5.5 5.0-9.0 Glucose Urine UA Negative Negative mg/dL Urine Blood Negative Negative Specific [place] - Urine 1.020 1.005-1.025 Urine Protein Negative Neg-Trace mg/dL Urine Ketones Negative Negative mg/dL Nitrite Urine Negative Negative Leukocyte Esterase Urine Negative Negative RBC Urine 0-2 0-2 /HPF WBC Urine 0-5 0-5 /HPF Squamous Epithelial Cell Urine 0-2 0-2 /HPF Bacteria Urine None Seen None Seen Hyaline Casts Urine 0-2 0-2 /LPF REASON FOR VISIT FASTING LABS Encounters Encounter Location Date Provider Diagnosis Arturo Martinez MD [address] [place] [phone] 06/26/2024 Arturo Martinez Blood tests for rout ine general physical examination Z00.00 ; Essential hypertension I10 and Abdominal aortic atherosclerosis I70.0 Assessments Encounter Date Diagnosis (ICD Code) Assessment Notes Treatment Notes Treatment Clinical Notes Section Notes 06/26/2024 Blood tests for routine general physical examination (ICD-10 - Z00.00) 06/26/2024 Essential hypertension (ICD-10 - I10) 06/26/2024 Abdominal aortic atherosclerosis (ICD-10 - I70.0) Plan Of Treatment Next Appt Details Provider Name:Arturo rasheed, 07/01/2025 07:00:00 AM, [address] [place] [address], [address], [phone], Provider Name:Arturo rasheed, 07/08/2025 08:30:00 AM, [address] [place] [address], [address], [phone], Progress Notes * Alexsander RUIZ RDOB:1960 (64 yo M)Acc No.[id number]:06/26/2024 Progress Note Patient: Nivia Alexsander HAMILTON Provider: Girish Martinez MD :1960 A ge:63 Y S ex:Male Date:06/26/2024 Address:[address] [place] [address] [place], SH[place]A [phone] Subjective: * Chief Complaints: * 1 . FASTING LABS. * Medical History: Objective: * Vitals: Assessment: * Assessment: 1. B lood tests for routine general physical examination - Z00.00 (Primary) 2 .?Essential hypertension - I10 3 . A bdominal aortic atherosclerosis - I70.0? Plan: * Treatment: 2. E ssential hypertension L AB: Complete Blood Count Auto Diff (Collection Date & Time - 06/26/2024 07:30 AM) L AB: Comprehensive Chloride. Panel Fast (Collection Date & Time - 06/26/2024 07:30 AM) L AB: Lipid Panel (Collection Date & Time - 06/26/2024 07:30 AM) L AB: PSA,Total (Free>4and<10) (Collection Date & Time - 06/26/2024 07:30 AM) L AB: UA ClnCatch+Micro w/rflx Cult (Collection Date & Time - 06/26/2024 07:30 AM) 3. A bdominal aortic atherosclerosis L AB: Complete Blood Count Auto Diff (Collection Date & Time - 06/26/2024 07:30 AM) L AB: Comprehensive Chloride. Panel Fast (Collection Date & Time - 06/26/2024 07:30 AM) L AB: Lipid Panel (Collection Date & Time - 06/26/2024 07:30 AM) L AB: PSA,Total (Free>4and<10) (Collection Date & Time - 06/26/2024 07:30 AM) L AB: UA ClnCatch+Micro w/rflx Cult (Collection Date & Time - 06/26/2024 07:30 AM) * Procedure Codes: 3 6415 VENIPUNCT, ROUTINE* * * The named appointment provid er may or may not be the originator of this progress note, and it is not deemed complete until electronically signed by the appointment provider. Sign off status: Pending * Provider: Girish Martinez MD Date: 0 06/26/2024 Generated for Victor Mi ng/Faabbyg/eTransmitting on: 1 04:34 PM EST
--- OUTSIDE RECORDS SUMMARY | 2024-07-03 03:30 | XMS_ITS ---
Author Organization Arturo Martinez MD Address [address] [place] [phone] Care Team Providers Care Air Battle Manager Name Role Phone Arturo Martinez Primary Care Provider Allergies Allergen (clinical drug ingredient) Drug/Non Drug Allergy documented on EMR Reaction Allergy Type Onset Date Status irbesartan Irbesartan pancreatiies Drug Allergy Active hydrochlorothiazide Hydrochlorothiazide cramps a nd elevted bun and cr Drug Allergy Active Reason For Referral Reason Nodule of finger Diagnosis 1 Nodule of finger (78 2.2) Referral Organization Arturo Martinez MD Referring Provider First Name Arturo Referring Provider Last Name Juan Referring Provider Speciality Internal M edicine Referred Provider Tanya Denise Referred Provider Specialty Orthopedic S urgery General Notes Arleen Clancy 0 07/03/2024 09:24:55 AM >info faxed, Arleen Clancy 07/06/2024 01:19:50 PM > not able to use this referral due to (The following servicing providers are not contracted with the selected patient's product and are not valid for this request Tanya Denise ) Referral Priority Routine REASON FOR VISIT ANNUAL EXAM Medications Medication SIG (Take, Route, Frequency, Duration) Notes Start Date End Date Status Ocuflox 0.3 % 1 drop into affected eye Ophthalmic Four times a day for 10 days 01/29/2020 Not-Taking Ibuprofen 200 MG 1 tablet with food o r milk as needed Orally Three times a day Not-Taking Colchicine 0.6 MG 1 tablet Orally twic e a day for 14 days 05/04/2019 Not-Taking Ocuflox 0.3 % 1 drop into affected eye Ophthalmic Four times a day for 10 days 02/14/2021 Not-Taking TobraDex 0.3-0.1 % APPLY TO BOTH EYES D AILY AT BEDTIME Ophthalmic for 7 Not-Taking Allopurinol 300 MG TAKE 1 TABLET BY DAYNE TH EVERY DAY FOR 30 DAYS for 90 Active predniSONE 20 MG 1 tablet Orally Once a day for 10 days 10/09/2021 Not-Taking Celecoxib 200 MG 1 capsule with food Orally once a day for a week before and after allopurinol for 14 days 10/09/2021 Not-Taki ng Carvedilol Phosphate ER 40 MG TAKE 1 CAPSULE BY MOUTH WITH FOOD ONCE DAILY for 90 Active Lisinopril 10 MG TAKE 1 TABLET BY DAYNE TH EVERY DAY for 90 Active Vitamin C 500 MG as directed Orally Active Colchicine 0.6 MG 1 tablet Orally QOD 09/22/2021 Not-Taking Metamucil Free & Natural 43 % as directed Orally Active Hyoscyamine Sulfate ER 0.375 MG 1 tablet Orally every 12 hrs 08/08/2023 Active Social History Tobacco Use: Social History [...] Never (0 point) Points 2 Interpretation Negative Vital Signs Blood pressure systolic 128 mm Hg 07/04/19 25 Blood pressure diastolic 70 mm Hg 025 Height 71.5 in 07/03/2024 Weight 173 lbs 07/03/2024 BMI 23.79 kg/m2 07/03/2024 Encounters Encounter Location Date Provider Diagnosis Arturo Martinez MD [address] [place] [address] [place] [phone] 07/03/2024 Arturo Martinez Annual physical exam Z00.00 ; Elevated LFTs R79.89 ; Skin lesion L98.9 ; Nodule of finger 782.2 ; Essential hypertension I10 ; Irritable bowel syndrome with diarrhea K58.0 ; Colon cancer screening Z12.11 and Depression screening Z13.31 Assessments Encounter Date Diagnosis (ICD Code) Assessment Notes Treatment Notes Treatment Clinical Notes Section Notes 07/03/2024 Annual physical exam (ICD-10 - Z00.00) reviewed labs and discused with patient 07/03/2024 Elevated LFTs (ICD-10 - R79.89) will cntinue to monitor 07/03/2024 Skin lesion (ICD-10 - L98.9) 07/03/2024 Nodule of finger (ICD9-CM - 782.2) referral to hand surgeon dr denise 07/03/2024 Essential hypertension (ICD-10 - I10) stable, will continue current regiment 07/03/2024 Irritable bowel syndrome with diarrhea (ICD-10 - K58.0) doing well, will contiue current regiment 07/03/2024 Colon cancer screening (ICD-10 - Z12.11) guaiac negative 07/03/2024 Depression screening (ICD-10 - Z13.31) negative screen Plan Of Treatment Treatment Notes Assessment Notes Annual physical exam reviewed labs and d iscused with patient Elevated LFTs will cntinue to chintan tor Nodule of finger referral to hand fausto geon dr denise Essential hypertension stable, will cont inue current regiment Irritable bowel syndrome with diarrhea d oing well, will contiue current regiment Colon cancer screening guaiac negative Depression screening negative screen Referrals Referral Date Details 07/03/2024 07/03/2024, Nodule o f finger, Tanya Denise Next Appt Details Provider Name:Arturo Knutson ier, 07/01/2025 07:00:00 AM, [address], [address], [place], [place], [phone], Provider Name:Arturo Knutson ier, 07/08/2025 08:30:00 AM, [address], [address], [place], [place], [phone], Progress Notes * Alexsander RUIZ RDOB:1960 (63 yo M)Acc No.[id number]:07/03/2024 Progress Notes Patient: Alexsander ELLIOTT Provider: Girish Martinez MD :1960 A ge:63 Y S ex:Male Date:07/03/2024 Address:[address] [place] [id number] Subjective: * Chief Complaints: * A NNUAL EXAM * HPI: D epression Screening: PHQ-9 L ittle interest or pleasure in doing things N ot at all, F eeling down, depressed, or hopeless N ot at all, T rouble falling or staying asleep, or sleeping too much N ot at all, F eeling tired or having little energy N ot at all, P oor appetite or overeating N ot at all, F eeling bad about yourself or that you are a failure, or have let yourself or your family down N ot at all, T rouble concentrating on things, such as reading the newspaper or watching television N ot at all, M oving or speaking so slowly that other people could have noticed; or the opposite, being so fidgety or restless that you have been moving around a lot more than usual N ot at all, T houghts that you would be better off or of hurting yourself in some way N ot at all, T otal Score 0 . I nterpretation and Intervention D epression Screening Findings N egative, F ollow-Up for Depression : review of PHQ-9 found negative result, no follow-up needed. here for yearly evaluation. C ommunication Needs: Communication Needs D oes the patient have a hearing impairment N o, D oes the patient have a vision impairment? Y es, I f yes, what is the vision impairment? G lasses, D oes the patient have a cognition impairment? N o. F all Risk: History H ave you had any falls with injury in the past year? N o, H ave you had two or more falls in the past year? N o. S SAMUEL Questions: SDOH Questions I n the past year have you been worried about losing housing? N o, I n the past year have you or any family members you live with been unable to get any of the following when it was really needed? Check all that apply: N one. S ymptom(s): patient is a 63 yo male here fr annual visit with review of recent labs and follow up of chronic issues. * ROS: G eneral/Constitutional: Change in appetite d enies. C hills d enies. F ever d enies. O phthalmologic: Blurred vision d enies. D ischarge d enies. P ain d enies. E NT: Decreased hearing d enies. S ore throat d enies.?Swollen glands d enies. E ndocrine: Cold intolerance d enies. E xcessive thirst d enies. H eat intolerance d enies. W eight loss d enies. R espiratory: Cough d enies. S hortness of breath at rest d enies. S hortness of breath with exertion d enies. W heezing d enies. C ardiovascular: Chest pain at rest d enies. C hest pain with exertion?denies. I rregular heartbeat d enies. S hortness of breath d enies. ? G astrointestinal: Abdominal pain d enies. C hange in bowel habits d enies. D iarrhea d enies. N ausea d enies. R ectal bleeding d enies. V omiting d enies . G enitourinary: Blood in urine d enies. D ifficulty urinating d enies. F requent urination d enies. M usculoskeletal: Painful joints d enies. W eakness d enies. ? S kin: Dry skin d enies. I tching d enies. D enies?Mole(s), changes in moles, new moles or any lesions of concern. D enies P hotosensitivity. R rayshawn d enies. N eurologic: Dizziness d enies. F ainting d enies. H eadache?denies. * Medical History: * Surgical History: * Hospitalization/Major Diagno stic Procedure: * Family History: F ather: 63 yrs, lung cancer. M other: 69 yrs, cardiac disease, cardiac disease. 2 brother(s) . 1 son(s) , 1 daughter(s) . . Father- lung cancer Mother- CVA, Denies mental health/substance abuse family history, Denies mental health/substance abuse family history, No pertinent family medical history, No pertinent family medical history, Denies mental health/substance abuse family history. * Social History: T obacco Use: T obacco Use/Smoking P atient is a n onsmoker, A dditional Findings: Tobacco Non-User C urrent non-smoker, currently using no form of tobacco. D rugs/Alcohol: A lcohol Screen D id you have a drink containing alcohol in the past year? Y es, H ow often did you have a drink containing alcohol in the past year? 2 to 4 times a month (2 points), H ow many drinks did you have on a typical day when you were drinking in the past year? 1 or 2 drinks (0 point), H ow often did you have 6 or more drinks on one occasion in the past year? N ever (0 point), P oints 2 , I nterpretation N egative. M iscellaneous: C affeine: yes, frequency:, 1-2 cups per day. Children: yes. Community involvements: no. Exercise: yes, walking. Home smoke detector use: smoke detectors, carbon monoxide detector. Housing: owning. Living with: spouse. Marital status: . Occupation: works full-time. Pets: dog x1. Travel outside of the [place]: yes, [facility]. * Medications: T akingVitamin C 500 MG Capsule as directed Orally Metamucil Free & Natural 43 % Powder as directed Orally Hyoscyamine Sulfate ER 0.375 MG Tablet Extended Release 12 Hour 1 tablet Orally every 12 hrs Carvedilol Phosphate ER 40 MG Capsule Extended Release 24 Hour TAKE 1 CAPSULE BY MOUTH WITH FOOD ONCE DAILY Lisinopril 10 MG Tablet TAKE 1 TABLET BY MOUTH EVERY DAY Allopurinol 300 MG Tablet TAKE 1 TABLET BY MOUTH EVERY DAY FOR 30 DAYS Taking Vitamin C 500 MG Capsule as directed Orally Taking Metamucil Free & Natural 43 % Powder as directed Orally Taking Hyoscyamine Sulfate ER 0.375 MG Tablet Extended Release 12 Hour 1 tablet Orally every 12 hrs Taking Carvedilol Phosphate ER 40 MG Capsule Extended Release 24 Hour TAKE 1 CAPSULE BY MOUTH WITH FOOD ONCE DAILY Taking Lisinopril 10 MG Tablet TAKE 1 TABLET BY MOUTH EVERY DAY Taking Allopurinol 300 MG Tablet TAKE 1 TABLET BY MOUTH EVERY DAY FOR 30 DAYS Not-Taking/PRNColchicine 0.6 MG Tablet 1 tablet Orally QOD predniSONE 20 MG Tablet 1 tablet Orally Once a day Celecoxib 200 MG Capsule 1 capsule with food Orally once a day for a week before and after allopurinol Colchicine 0.6 MG Tablet 1 tablet Orally twice a day Ocuflox 0.3 % Solution 1 drop into affected eye Ophthalmic Four times a day Ocuflox 0.3 % Solution 1 drop into affected eye Ophthalmic Four times a day Ibuprofen 200 MG Tablet 1 tablet with food or milk as needed Orally Three times a day TobraDex 0.3-0.1 % Ointment APPLY TO BOTH EYES DAILY AT BEDTIME Ophthalmic Medication List reviewed and reconciled with the patientNot-Taking/PRN Colchicine 0.6 MG Tablet 1 tablet Orally QOD Not-Taking/PRN predniSONE 20 MG Tablet 1 tablet Orally Once a day Not-Taking/PRN Celecoxib 200 MG Capsule 1 capsule with food Orally once a day for a week before and after allopurinol Not-Taking/PRN Colchicine 0.6 MG Tablet 1 tablet Orally twice a day Not-Taking/PRN Ocuflox 0.3 % Solution 1 drop into affected eye Ophthalmic Four times a day Not-Taking/PRN Ocuflox 0.3 % Solution 1 drop into affected eye Ophthalmic Four times a day Not-Taking/PRN Ibuprofen 200 MG Tablet 1 tablet with food or milk as needed Orally Three times a day Not-Taking/PRN TobraDex 0.3-0.1 % Ointment APPLY TO BOTH EYES DAILY AT BEDTIME Ophthalmic Medication List reviewed and reconciled with the patient * Allergies: H ydrochlorothiazide: cramps and elevted bun and crIrbesartan: pancreatiiesyes[Allergies Verified] Objective: * Vitals: H t: 71.5, Wt: 173, BMI:23.79, BP:128/70, Wt-k.47. * P ast Orders: L ab:UA ClnCatch+Micro w/rflx Cult (Order Date - 06/26/2024) (Collection Date & Time - 06/26/2024 07:30 AM) Value Reference Range Color Urine Yellow - Appearance Urine Clear - PH 5.5 5.0-9.0 - Glucose Urine UA Negative Negative - mg/dL Urine Blood Negative Negative - Specific [place] - Urine 1.020 1.005-1.025 - Urine Protein Negative Neg-Trace - mg/dL Urine Ketones Negative Negative - mg/dL Nitrite Urine Negative Negative - Leukocyte Esterase Urine Negative Negative - RBC Urine 0-2 0-2 - /HPF WBC Urine 0-5 0-5 - /HPF Squamous Epithelial Cell Urine 0-2 0-2 - /HP F Bacteria Urine None Seen None Seen - Hyaline Casts Urine 0-2 0-2 - /LPF L ab:Complete Blood Count Auto Diff (Order Date - 06/26/2024) (Collection Date & Time - 06/26/2024 07:30 AM) Value Reference Range White Blood Count 5.9 4.8-10.8 - X10*3/uL Red Blood Count 4.75 4.60-5.80 - X10*6/uL Hemoglobin 14.6 14.0-18.0 - g/dl Hematocrit 42.5 42.0-52.0 - % Mean Corpuscular Volume 89.5 80.0-98.0 - fL Mean Corpuscular Hemoglobin 30.7 27.0-33.0 - pg Mean Corpuscular HGB Conc 34.4 31.0-36.0 - g/ dl Red Cell Distribution Width 12.8 11.0-16.0 - % Platelet Count 218 160-400 - X10*3/uL Mean Platelet Volume 10.9 9.4-12.4 - fL Neutrophils Percent Auto 62.2 45-73 - % Imm Gran Pct Auto 0.7 H 0.0-0.4 - % Lymphocytes Percent Auto 23.3 20-40 - % Monocytes Percent Auto 9.9 2-11 - % Eosinophils Percent Auto 3.4 0-4 - % Basophils Percent Auto 0.5 0-2 - % NRBC Pct Auto 0.0 0.0-0.2 - /100WBC Neutrophils Absolute Auto 3.7 2.0-8.3 - x10* 3/uL Imm Gran Abs Auto 0.04 H 0.00-0.03 - X10*3/uL Lymphocytes Absolute Auto 1.4 1.2-4.9 - X10* 3/uL Monocytes Absolute Auto 0.6 0.1-1.2 - X10*3/ uL Eosinophils Absolute Auto 0.2 0.0-0.4 - X10* 3/uL Basophils Absolute Auto 0.0 0.0-0.2 - X10*3/ uL NRBC Abs Auto 0.000 0.0-0.012 - X10*3/uL L ab:Comprehensive [place]. Panel Fast (Order Date - 06/26/2024) (Collection Date & Time - 06/26/2024 07:30 AM) Value Reference Range Sodium 138 135-145 - mmol/L Bilirubin Total 1.1 H 0.0-1.0 - mg/dL Aspartate Amino Transferase 38 H 5-37 - U/L Alanine Aminotransferase 55 H 0-40 - U/L Total Protein 6.9 6.5-8.0 - g/dL Albumin Level 4.2 3.5-5.0 - g/dL Alkaline Phosphatase 75 39-117 - U/L Potassium 4.7 3.3-5.1 - mmol/L Chloride 108 96-108 - mmol/L Carbon Dioxide 26 22-29 - mmol/L Anion Gap 9 L 12-20 - Blood Urea Nitrogen 15 9-16 - mg/dL Creatinine 1.22 0.5-1.4 - mg/dL Estimated Glomerular Filt Rate 60 - Glucose Fasting 97 60-99 - mg/dL Calcium 9.0 8.4-10.2 - mg/dL L ab:Lipid Panel (Order Date - 06/26/2024) (Collection Date & Time - 06/26/2024 07:30 AM) Value Reference Range Triglycerides 44 <150 - mg/dL Cholesterol 138 <200 - mg/dL LDL Cholesterol Calculated 81 <100 - mg/dL HDL Cholesterol 49 >40 - mg/dL L ab:PSA,Total (Free>4and<10) (Order Date - 06/26/2024) (Collection Date & Time - 06/26/2024 07:30 AM) Value Reference Range PSA,Total (Free>4and<10) < 0.10 0.00-4.00 - ng/ mL * Examination: G eneral Examination: GENERAL APPEARANCE: w ell developed, well nourished, in no acute distress. HEAD: n ormocephalic, atraumatic. EYES: p upils equal, round, reactive to light and accommodation, sclera non-icteric. EARS: n ormal. ORAL CAVITY: m ucosa moist. THROAT: c lear. NECK/THYROID: n meg supple, full range of motion, no cervical lymphadenopathy, no bruits. SKIN: w arm and dry, no suspicious lesions, abnormal rt hand with a scaly lesion about 1/2 inch. HEART: r egular rate and rhythm, S1, S2 normal, no murmurs.? LUNGS: c lear to auscultation bilaterally. ABDOMEN: s oft, nontender, nondistended, bowel sounds present, normal, no organomegaly , no masses palpable. RECTAL EXAM: n ormal tone, no external hemorrhoids, no masses palpable, prostate normal, stool guaiac negative. MALE GENITOURINARY: n ot examined. EXTREMITIES: n o clubbing, cyanosis, or edema. NEUROLOGIC: n onfocal, motor strength normal upper and lower extremities, sensory exam intact. Assessment: * Assessment: 1. A nnual physical exam - Z00.00 (Primary) 2 . E levated LFTs - R79.89? 3. S kin lesion - L98.9 4 . N odule of finger - 782.2 ? 5 . E ssential hypertension - I10 6 . I rritable bowel syndrome with diarrhea - K58.0 7 . C olon cancer screening - Z12.11 8 . D epression screening - Z13.31 Plan: * Treatment: 2. E levated LFTs Notes: will cntinue to monitor 3. N odule of finger Notes: referral to hand surgeon dr denise Referral To:Tanya Denise [facility] Reason:Nodule of finger 4. E ssential hypertension Notes: stable, will continue current regiment 5. I rritable bowel syndrome with diarrhea Notes: doing well, will contiue current regiment 6. C olon cancer screening Notes: guaiac negative 7. D epression screening Notes: negative screen * Procedure Codes: * * Sign off status: Completed true * Provider: Girish Martinez MD Date: 0 07/03/2024 Generated for Victor Mi ollie/Tyrese/eTransmitting on: 1 04:33 PM EST History and Physical Notes * HPI (History of Present Illness) Category Sub-Category Detail Notes Category Not es Symptom(s) patient is a 63 yo male here fr annual visit with review of recent labs and follow up of chronic issues. Depression Screening PHQ-9 Little inte rest or pleasure in doing things: Not at all here for yearly evaluation Feeling down, depressed, or hopeless: No t at all Trouble falling or staying asleep, or sl eeping too much: Not at all Feeling tired or having little energy: N ot at all Poor appetite or overeating: Not at all Feeling bad about yourself o r that you are a failure, or have let yourself or your family down: Not at all Trouble concentrating on thi ngs, such as reading the newspaper or watching television: Not at all Moving or speaking so slowly that other people could have noticed; or the opposite, being so fidgety or restless that you have been moving around a lot more than usual: Not at all Thoughts that you would be b shy off or of hurting yourself in some way: Not at all Total Score: 0 Interpretation and Intervention Depression Carlee bautista Findings: Negative Follow-Up for Depression: : review of PH Q-9 found negative result, no follow-up needed SDOH Questions SDOH Questions In the past year have you been worried about losing housing?: No In the past year have you or any family members you live with been unable to get any of the following when it was really needed? Check all that apply:: None Fall Risk History Have you had any falls with injury i n the past year?: No Have you had two or more falls in the st year?: No Communication Needs Communication Needs Does the patient have a hearing impairment: No Does the patient have a vision impairmen t?: Yes If yes, what is the vision impairment?: Glasses Does the patient have a cognition impair ment?: No Examination Category Sub-Category Detail Notes Category Not es General Examination GENERAL APPEARANCE: well dev eloped, well nourished, in no acute distress HEAD: normocephalic, atrau matic EYES: pupils equal, round, reactive to light and accommodation, sclera non-icteric EARS: normal THROAT: clear NECK/THYROID: neck supple, full ra nge of motion, no cervical lymphadenopathy, no bruits HEART: regular rate and rhy thm, S1, S2 normal, no murmurs LUNGS: clear to auscultatio n bilaterally ABDOMEN: soft, nontender, non distended, bowel sounds present, normal, no organomegaly , no masses palpable NEUROLOGIC: nonfocal, motor stre ngth normal upper and lower extremities, sensory exam intact SKIN: warm and dry, no gary picious lesions, abnormal rt hand with a scaly lesion about 1/2 inch EXTREMITIES: no clubbing, cyanosi s, or edema MALE GENITOURINARY: not examined RECTAL EXAM: normal tone, no exte rnal hemorrhoids, no masses palpable, prostate normal, stool guaiac negative ORAL CAVITY: mucosa moist Consultation Request Notes Referral Date Referring Provider Referred Provider Not es 07/03/2024 Arturo Martinez Catherine Nodule of finger
--- OUTSIDE RECORDS SUMMARY | 2024-07-14 08:57 | XMS_ITS ---
Author Organization Arturo Martinez MD Address [address] [place] [phone] Care Team Providers Care Power Equipment Technology Instructor Name Role Phone Arturo Martinez Primary Care Provider REASON FOR VISIT referral Encounters Encounter Location Date Provider Diagnosis Arturo Martinez MD [facility] [address] [place] [phone] 07/14/2024 Arturo Martinez Plan Of Treatment Next Appt Details Provider Name:Arturo rasheed, 07/01/2025 07:00:00 AM, [address] [place] [address], [address], [phone], Provider Name:Arturo rasheed, 07/08/2025 08:30:00 AM, [address] [place] [address], [address], [phone], Progress Notes * Alexsander RUIZ RDOB:1960 (63 yo M)Acc No.[id number]:07/14/2024 Patient: Alexsander ELLIOTT :1960 A ge:63 Y S ex:Male Address:[address] [place] [phone] * true * Date: Generated for Nitish levin/Tyrese/Robertsmitting on: 04:35 PM EST
--- OUTSIDE RECORDS SUMMARY | 2024-07-31 02:00 | XMS_ITS ---
Author Organization Arturo Martinez MD Address [address] [place] [phone] Care Team Providers Care Front Office Associate Name Role Phone Arturo Martinez Primary Care Provider Results Component Value Reference Range Notes Liver Panel Reviewed date:07/31/2024 12:44:23 PM Interpretation: Performing Lab:[facility], [address] [place] [phone] Notes/Report: Bilirubin Total 1.2 0.0-1.0 mg/dL Bilirubin Direct 0.4 0.0-0.5 mg/dL Aspartate Amino Transferase 32 5-37 U/L Alanine Aminotransferase 48 0-40 U/L Total Protein 7.0 6.5-8.0 g/dL Albumin Level 4.5 3.5-5.0 g/dL Alkaline Phosphatase 73 39-117 U/L REASON FOR VISIT liver panel Medications Medication SIG (Take, Route, Frequency, Duration) Notes Start Date End Date Status Ibuprofen 200 MG 1 tablet with food o r milk as needed Orally Three times a day Not-Taking Vitamin C 500 MG as directed Orally [...] a day for 14 days 05/04/2019 Not-Taking Celecoxib 200 MG 1 capsule with food Orally once a day for a week before and after allopurinol for 14 days 10/09/2021 Not-Taki ng predniSONE 20 MG 1 tablet Orally Once a day for 10 days 10/09/2021 Not-Taking Allopurinol 300 MG TAKE 1 TABLET BY DAYNE TH EVERY DAY FOR 30 DAYS for 90 Active Lisinopril 10 MG TAKE 1 TABLET BY DAYNE TH EVERY DAY for 90 Active Colchicine 0.6 MG 1 tablet Orally QOD 09/22/2021 Not-Taking Carvedilol Phosphate ER 40 MG TAKE 1 CAPSULE BY MOUTH WITH FOOD ONCE DAILY for 90 Active Hyoscyamine Sulfate ER 0.375 MG 1 tablet Orally every 12 hrs 08/08/2023 Active Metamucil Free & Natural 43 % as directed Orally Active Encounters Encounter Location Date Provider Diagnosis Arturo Martinez MD [address] [place] [phone] 07/31/2024 Arturo Martinez Elevated liver function tests R79.89 Assessments Encounter Date Diagnosis (ICD Code) Assessment Notes Treatment Notes Treatment Clinical Notes Section Notes 07/31/2024 Elevated liver function tests (ICD-10 - R79.89) Plan Of Treatment Next Appt Details Provider Name:Arturo rasheed, 07/01/2025 07:00:00 AM, [address] [place] [address], [address], [phone], Provider Name:Arturo rasheed, 07/08/2025 08:30:00 AM, [address] [place] [address], [place] [address], [place], [phone], Progress Notes * Alexsander RIUZ RDOB:1960 (64 yo M)Acc No.[id number]:07/31/2024 Progress Note Patient: Alexsander ELLIOTT Provider: Girish Martinez MD :1960 A ge:63 Y S ex:Male Date:07/31/2024 Address:[address] [place] [address], [id number] Subjective: * Chief Complaints: * 1 . Liver panel. * Medical History: * Medications: T aking Vitamin C 500 MG Capsule as directed Orally , Taking Metamucil Free & Natural 43 % Powder as directed Orally , Taking Hyoscyamine Sulfate ER 0.375 MG Tablet Extended Release 12 Hour 1 tablet Orally every 12 hrs , Taking Carvedilol Phosphate ER 40 MG Capsule Extended Release 24 Hour TAKE 1 CAPSULE BY MOUTH WITH FOOD ONCE DAILY , Taking Lisinopril 10 MG Tablet TAKE 1 TABLET BY MOUTH EVERY DAY , Taking Allopurinol 300 MG Tablet TAKE 1 TABLET BY MOUTH EVERY DAY FOR 30 DAYS , Not-Taking/PRN Colchicine 0.6 MG Tablet 1 tablet Orally QOD , Not-Taking/PRN predniSONE 20 MG Tablet 1 [...] TO BOTH EYES DAILY AT BEDTIME Ophthalmic Objective: * Vitals: Assessment: * Assessment: 1. E levated liver function tests - R79.89 (Primary) Plan: * Treatment: * Procedure Codes: 3 6415 VENIPUNCT, ROUTINE* * * The named appointment provid er may or may not be the originator of this progress note, and it is not deemed complete until electronically signed by the appointment provider. Sign off status: Pending * Provider: Girish Martinez MD Date: 0 07/31/2024 Generated for Nitish levin/Tyrese/Jesus on: 04:35 PM EST
--- OUTSIDE RECORDS SUMMARY | 2024-07-31 08:16 | XMS_ITS ---
Author Organization Arturo Martinez MD Address [address] [place] [phone] Care Team Providers Care Manager Front Name Role Phone Arturo Martinez Primary Care Provider [phone] REASON FOR VISIT referral Encounters Encounter Location Date Provider Diagnosis Arturo Martinez MD 10 [facility] [address] [place] [phone] 07/31/2024 Arturo Martinez Plan Of Treatment Next Appt Details Provider Name:Arturo rasheed, 07/01/2025 07:00:00 AM, [address] [place] [address], [address], [phone], Provider Name:Arturo rasheed, 07/08/2025 08:30:00 AM, [address] [place] [address], [address], [phone], Progress Notes * Alexsander RUIZ RDOB:1960 (63 yo M)Acc No.[id number]:07/31/2024 Patient: Alexsander ELLIOTT :1960 A ge:63 Y S ex:Male Address:[address] [place] [phone] * true * Date: Generated for Nitish levin/Tyrese/Robertsmitting on: 04:35 PM EST
--- OUTSIDE RECORDS SUMMARY | 2024-08-05 04:09 | XMS_ITS ---
Author Organization Arturo Martinez MD Address [address] [place] [phone] Care Team Providers Care Diamond Sorter Name Role Phone Arturo Martinez Primary Care Provider REASON FOR VISIT Recent Blood Work Encounters Encounter Location Date Provider Diagnosis Arturo Martinez MD [facility] [address] [place] [phone] 08/05/2024 Arturo Martinez Plan Of Treatment Next Appt Details Provider Name:Arturo rasheed, 07/01/2025 07:00:00 AM, [address] [place] [address], [address], [phone], Provider Name:Arturo rasheed, 07/08/2025 08:30:00 AM, [address] [place] [address], [address], [phone], Progress Notes * Alexsander RUIZ RDOB:1960 (63 yo M)Acc No.[id number]:08/05/2024 Patient: Alexsander ELLIOTT :1960 A ge:63 Y S ex:Male Address:[address] [place] [phone] * true * Date: Generated for Nitish levin/Tyrese/Robertsmitting on: 04:34 PM EST
--- OUTSIDE RECORDS SUMMARY | 2024-11-06 03:45 | XMS_ITS ---
Author Organization Arturo Martinez MD Address [address] [place] [phone] Care Team Providers Care Powderer Name Role Phone Arturo Martinez Primary Care Provider Results Component Value Reference Range Notes Liver Panel Reviewed date:11/06/2024 12:51:33 PM Interpretation: Performing Lab:[facility], [address] [place] [phone] Notes/Report: Bilirubin Total 0.9 0.0-1.0 mg/dL Bilirubin Direct 0.3 0.0-0.5 mg/dL Aspartate Amino Transferase 31 5-37 U/L Alanine Aminotransferase 36 0-40 U/L Total Protein 6.8 6.5-8.0 g/dL Albumin Level 4.3 3.5-5.0 g/dL Alkaline Phosphatase 81 39-117 U/L REASON FOR VISIT Repeat Liver Function Encounters Encounter Location Date Provider Diagnosis Arturo Martinez MD [address] [place], [place] [phone] 11/06/2024 Arturo Martinez Elevated liver function tests R79.89 Assessments Encounter Date Diagnosis (ICD Code) Assessment Notes Treatment Notes Treatment Clinical Notes Section Notes 11/06/2024 Elevated liver function tests (ICD-10 - R79.89) Plan Of Treatment Next Appt Details Provider Name:Arturo Knutson iesevero, 07/01/2025 07:00:00 AM, [address], [address], [place], [place], [phone], Provider Name:Arturo Knutson iesevero, 07/08/2025 08:30:00 AM, [address] [place] [address], [address], [place], [place], [phone], Progress Notes * Alexsander RUIZ RDOB:1960 (64 yo M)Acc No.[id number]:11/06/2024 Progress Note Patient: Alexsander ELLIOTT Provider: Girish Martinez MD :1960 A ge:63 Y S ex:Male Date:11/06/2024 Address:[address] [place] [id number] Subjective: * Chief Complaints: * 1 . Repeat Liver Function. * Medical History: Objective: * Vitals: Assessment: [...] * Provider: Girish Martinez MD Date: 0 11/06/2024 Generated for Nitish levin/Tyrese/Jesus on: 04:34 PM EST
--- OUTSIDE RECORDS SUMMARY | 2024-11-24 02:30 | XMS_ITS ---
Author Organization [facility] Address [address] [facility] [address] [place] [address] Care Team Providers Care Purchasing Administrator Name Role Phone Arturo Martinez MD Primary Care Provider Nathaniel August Jr, Jayme Schaffer [phone] REASON FOR VISIT colon cancer screening Encounters Encounter Location Date Provider Diagnosis [facility] Outpatient [address] [place] [phone] 11/24/2024 Jayme August Jr Plan Of Treatment Next Appt Details Provider Name:Jayme martin Jr, 01/31/2026 09:00:00 AM, [address] [place] [address], Suite [facility], [place], [address], Progress Notes * ETHAN OLSON RDOB:1960 (64 yo M)Acc No.[id number]:11/24/2024 COLON WITH MAC Patient: Nivia ETHAN HAMILTON Provider: Shala August MD :1960 A ge:63 Y S ex:Male Date:11/24/2024 Address:[address] [place], [place] [phone] Pcp:Arturo Martinez MD Subjective: * Chief Complaints: * C olon cancer screening Billing Information: * Procedure Codes: * The named appointment provid er may or may not be the originator of this progress note, and it is not deemed complete until electronically signed by the appointment provider. Sign off status: Pending * Provider: Shala August MD Date: 1 Generated for Nitish levin/Tyrese/Jesus on: 1 04:35 PM EST
--- OUTSIDE RECORDS SUMMARY | 2025-01-21 04:12 | XMS_ITS ---
Author Organization Arturo Martinez MD Address [address] [place] [phone] Care Team Providers Care Plug Saw Operator Name Role Phone Arturo Martinez Primary Care Provider [phone] REASON FOR VISIT Change in Insurance/Referral Request Encounters Encounter Location Date Provider Diagnosis Arturo Martinez MD [address] [facility] [address] [place] [phone] 01/21/2025 Arturo Martinez Plan Of Treatment Next Appt Details Provider Name:Arturo rasheed, 07/01/2025 07:00:00 AM, [address] [place] [address], [address], [phone], Provider Name:Arturo rasheed, 07/08/2025 08:30:00 AM, [address] [place] [address], [address], [phone], Progress Notes * Jarrett RUIZ RDOB:1960 (64 yo M)Acc No.[id number]:01/21/2025 Patient: Jarrett ELLIOTT :1960 A ge:64 Y S ex:Male Address:[address] [place] [address], [place] [phone] * true * Date: Generated for Nitish levin/Tyrese/eTransmitting on: 04:34 PM EST
--- OUTSIDE RECORDS SUMMARY | 2025-01-25 08:37 | XMS_ITS ---
Author Organization Arturo Martinez MD Address [address] [place] [phone] Care Team Providers Care Detective Private Eye Name Role Phone Arturo Martinez Primary Care Provider [phone] REASON FOR VISIT Ins referral Encounters Encounter Location Date Provider Diagnosis Arturo Martinez MD [address] [facility] [address] [place] [phone] 01/25/2025 Arturo Martinez Plan Of Treatment Next Appt Details Provider Name:Arturo rasheed, 07/01/2025 07:00:00 AM, [address] [place] [address], [address], [phone], Provider Name:Arturo rasheed, 07/08/2025 08:30:00 AM, [address] [place] [address], [address], [phone], Progress Notes * Alexsander RUIZ RDOB:1960 (64 yo M)Acc No.[id number]:01/25/2025 Patient: Alexsander ELLIOTT :1960 A ge:64 Y S ex:Male Address:[address] [place] [phone] * true * Date: Generated for Nitish levin/Tyrese/Robertsmitting on: 04:35 PM EST
--- OUTSIDE RECORDS SUMMARY | 2025-02-01 05:27 | XMS_ITS ---
Author Organization Arturo Martinez MD Address [address] [place] [phone] Care Team Providers Care Care Aid Name Role Phone Arturo Martinez Primary Care Provider REASON FOR VISIT refill Medications Medication SIG (Take, Route, Frequency, Duration) Notes Start Date End Date Status Carvedilol Phosphate ER 40 MG TAKE 1 CAPSULE BY MOUTH WITH FOOD ONCE DAILY Orally Once a day for 90 days Active Encounters Encounter Location Date Provider Diagnosis Arturo Martinez MD [address] [place] [phone] 02/01/2025 Arturo Martinez Plan Of Treatment Medication Medication Name Sig Start Date Stop Date Notes Carvedilol Phosphate ER 40 MG TAKE 1 CAP MARINA BY MOUTH WITH FOOD ONCE DAILY Orally Once a day for 90 days Next Appt Details Provider Name:Arturo rasheed, 07/01/2025 07:00:00 AM, [address], [address], [place], [place], [phone], Provider Name:Arturo Knutson ier, 07/08/2025 08:30:00 AM, [address], [address], [place], [place], [phone], Progress Notes * Alexsander RUIZ RDOB:1960 (64 yo M)Acc No.[id number]:02/01/2025 Patient: Nivia Alexsander HAMILTON :1960 A ge:64 Y S ex:Male Address:[address] [place] [address], [place] [id number] * Refills Refill Carvedilol Phosphate ER Capsule Extended Release 24 Hour, 40 MG, Orally, 90, TAKE 1 CAPSULE BY MOUTH WITH FOOD ONCE DAILY, Once a day, 90 days, Refills=3 * true * Date: Generated for Nitish levin/Tyrese/Ольгаitting on: 1 04:35 PM EST
--- OUTSIDE RECORDS SUMMARY | 2025-02-15 16:34 | XMS_ITS | Patient Health Record ---
Author Organization Arturo Martinez MD Address [address] [place] [phone] Care Team Providers Care Farm Contractor Name Role Phone Arturo Martinez Primary Care Provider Allergies Allergen (clinical drug ingredient) Drug/Non Drug Allergy documented on EMR Reaction Allergy Type Onset Date Status irbesartan Irbesartan pancreatiies Drug Allergy Active hydrochlorothiazide Hydrochlorothiazide cramps a nd elevted bun and cr Drug Allergy Active Results Component Value Reference Range Notes Complete Blood Count Auto Di ff Reviewed date:06/26/2024 12:33:18 PM Interpretation: Performing Lab:[facility], [address] [place] [phone] Notes/Report: White Blood Count 5.9 4.8-10.8 X10*3/uL [...] NRBC Abs Auto 0.000 0.0-0.012 X10*3/uL Comprehensive Hale. Panel Fa st Reviewed date:06/26/2024 12:20:00 PM Interpretation: Performing Lab:[facility], [address] [place] [phone] Notes/Report: Sodium 138 135-145 mmol/L Potassium 4.7 [...] Panel Reviewed date:06/26/2024 12:20:33 PM Interpretation: Performing Lab:[address] [phone] Notes/Report: Triglycerides 44 <150 mg/dL Desirable Triglyceride: [...] (Free>4and<10) Reviewed date:06/26/2024 12:11:39 PM Interpretation: Performing Lab:[address] [phone] Notes/Report: PSA,Total (Free>4and<10) < 0.10 0.00-4.00 ng/mL [...] t Reviewed date:06/26/2024 01:00:46 PM Interpretation: Performing Lab:[facility], [address] [place] [phone] Notes/Report: Urine, Clean Catch Color Urine Yellow Appearance Urine Clear PH 5.5 5.0-9.0 Glucose Urine UA Negative Negative mg/dL Urine Blood Negative Negative Specific Harmony - Urine 1.020 1.005-1.025 Urine Protein Negative Neg-Trace mg/dL Urine Ketones Negative Negative mg/dL Nitrite Urine Negative Negative Leukocyte Esterase Urine Negative Negative RBC Urine 0-2 0-2 /HPF WBC Urine 0-5 0-5 /HPF Squamous Epithelial Cell Urine 0-2 0-2 /HPF Bacteria Urine None Seen None Seen Hyaline Casts Urine 0-2 0-2 /LPF Liver Panel Reviewed date:07/31/2024 12:44:23 PM Interpretation: Performing Lab:[facility], [address] [place] [phone] Notes/Report: Bilirubin Total 1.2 0.0-1.0 mg/dL Bilirubin Direct 0.4 0.0-0.5 mg/dL Aspartate Amino Transferase 32 5-37 U/L Alanine Aminotransferase 48 0-40 U/L Total Protein 7.0 6.5-8.0 g/dL Albumin Level 4.5 3.5-5.0 g/dL Alkaline Phosphatase 73 39-117 U/L Liver Panel Reviewed date:11/06/2024 12:51:33 PM Interpretation: Performing Lab:[facility], [address] [place] [phone] Notes/Report: Bilirubin Total 0.9 0.0-1.0 mg/dL Bilirubin Direct 0.3 0.0-0.5 mg/dL Aspartate Amino Transferase 31 5-37 U/L Alanine Aminotransferase 36 0-40 U/L Total Protein 6.8 6.5-8.0 g/dL Albumin Level 4.3 3.5-5.0 g/dL Alkaline Phosphatase 81 39-117 U/L Comprehensive Met. Panel Reviewed date:08/14/2024 01:00:07 PM Interpretation: Performing Lab:[facility], [address] [place] [phone] Notes/Report: Sodium 138 135-145 mmol/L Potassium 4.9 [...] Acid Reviewed date:08/14/2024 12:41:12 PM Interpretation: Performing Lab:[facility], [address] [place] [phone] Notes/Report: Uric Acid 4.7 3.4-7.0 mg/dL US abdomen complete Reviewed date:09/30/2024 02:14:09 PM Interpretation: Performing Lab: Notes/Report: [address] [address] Ultrasound Report Signed Patient: Alexsander Ruiz MR#: [id number] : 1960 Acct:[id number] Age/Sex: 63 / M ADM Date: 09/30/24 Loc: HO.US Attending Dr: Jayme August MD Ordering Physician: Jayme August MD Date of Service: 09/30/24 Procedure(s): US abdomen complete Accession Number(s): [id number] cc: Arturo Martinez MD; Jayme August MD [...] 09/30/24 0840 DD/ 0820 TD/TT: 09/30/24 0829 Automatic Vulcanizing Lead Operator: [place] [id number] Ultrasound Report Signed Patient: Alexsander Ruiz MR#: [id number] : 1960 Acct:[id number] Age/Sex: 63 / M ADM Date: 09/30/24 Loc: HO.US Attending Dr: Adela August MD Ordering Physician: Jayme August MD Date of Service: 09/30/24 Procedure(s): US abdomen complete Accession Number(s): [id number] cc: Arturo Martinez MD; Jayme August MD [...] 09/30/24 0840 DD/ 0820 TD/TT: 09/30/24 0829 Automatic Vulcanizing Lead Operator: Reason For Referral Reason Nodule of finger Diagnosis 1 Nodule of finger (78 2.2) Referral Organization Arturo Martinez MD Referring Provider First Name Arturo Referring Provider Last Name Juan Referring Provider Speciality Internal M edicine Referred Provider Tanya Dneise Referred Provider Specialty Orthopedic S urgery General [...] Arleen Clancy 0 07/06/2024 01:42:08 PM > [place] referral [id number] visits 07-06-24 to 09-18-24, Arleen Clancy [...] DAYNE TH EVERY DAY for 90 Active Metamucil Free & Natural 43 % as directed Orally Active Hyoscyamine Sulfate ER 0.375 MG TAKE 1 TABLET BY MOUTH EVERY 12 HOURS FOR 90 DAYS for 90 Active Carvedilol Phosphate ER 40 MG TAKE 1 CAPSULE BY MOUTH WITH FOOD ONCE DAILY Orally Once a day for 90 days Active TobraDex 0.3-0.1 % APPLY TO BOTH [...] Problem Status W/U Status Risk Notes Problem 641823408 Irritable bowel syndrome with diarrhea (K58.0) Active confirmed Problem Gout (83760369) Gout (M10.9) Active confirmed Problem 94348058 Gilbert syndrome (E80.4) Active confirmed Problem 76289988 Essential hypertension (I10) Active confirmed Problem 527931650 Prostate cancer (C61) Active confirmed Problem 96737189 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 Problem 655807852 Multiple falls (R29.6) Active confirmed Problem 63593784 Acute idiopathic gout of right foot (M10.071) Active confirmed Problem 19649073 LEÓN (obstructive sleep apnea) (G47.33) Active confirmed Problem 854182884 Idiopathic acute pancreatitis without infection or necrosis (K85.00) Active confirmed Problem Abdominal aortic atherosclerosis (041840812) Abdominal aortic atherosclerosis (I70.0) Active confirmed Problem 542447796 Acute gout of le ft ankle, unspecified cause (M10.9) Active confirmed Vital Signs Blood pressure diastolic 70 mm Hg 07/03/2024 Height 71.5 in 07/03/2024 Blood pressure systolic 128 mm Hg 07/03/2024 Weight 173 lbs 07/03/2024 BMI 23.79 kg/m2 07/03/2024 Encounters Encounter Location Date Provider Diagnosis Arturo Martinez MD [address] [place] [phone] 06/26/2024 Arturo Martinez Blood tests for rout ine general physical examination Z00.00 ; Essential hypertension I10 and Abdominal aortic atherosclerosis I70.0 Arturo Martinez MD [address] [facility] [address] [place] [phone] 07/31/2024 Arturo Martinez Elevated liver funct ion tests R79.89 Arturo Martinez MD [address] [place] [id number] 11/06/2024 Arturo Martinez Elevated liver funct ion tests R79.89 Arturo Martinez MD [address] [place] [id number] 07/03/2024 Arturo Martinez Annual physical exam Z00.00 ; Elevated LFTs R79.89 ; Skin lesion L98.9 ; Nodule of finger 782.2 ; Essential hypertension I10 ; Irritable bowel syndrome with diarrhea K58.0 ; Colon cancer screening Z12.11 and Depression screening Z13.31 Arturo Martinez MD [address] [place] [id number] 07/14/2024 Arturo Martinez MD [address] [place] [id number] 07/31/2024 Arturo Martinez MD [address] [place] [id number] 01/25/2025 Arturo Martinez MD [address] [place] [id number] 02/01/2025 Arturo Martinez MD [address] [place] [id number] 08/05/2024 Arturo Martinez MD [address] [place] [id number] 01/21/2025 Arturo Martinez Assessments Encounter Date Diagnosis (ICD [...] Name:Arturo Knutson ier, 07/01/2025 07:00:00 AM, [address] [facility], [address], [place], [place], [phone], Provider Name:Arturo Knutson ier, 07/08/2025 08:30:00 AM, [address] [facility], [address], [place], [place], [phone], Insurance Providers Payer Name Payer Address Payer Phone Subscriber Number Group Number Insured Name Patient Relationship to Insured Coverage Start Date Coverage End Date [facility] [address] [place], [place] [id number] Alexsander Ruiz Self - patient is the insured 8 Medical (General) History Medical History History ICD Code Hx Diverticulosis of colon COLONOSCOPY 09/25/2010 due in ten years w/Dr. Michel. 11/24/24 colonoscopy repeat 5y
--- OUTSIDE RECORDS SUMMARY | 2025-02-15 16:34 | XMS_ITS | Clinical Summary ---
Author Organization [facility], Address [address] [place] [address] Phone Care Team Providers Care Funeral Service Practitioner/Embalmer Name Role Phone Arturo Martinez MD Primary Care Provider [phone] Allergies Active Allergy Reactions Criticality Noted Date [...] Care Team (Late st Contact Info) Description 03/17/2025 3:30 PM EST Office Visit [facility], [address] [address] Alex Gamino MD [address] [place] [address] Health Maintenance Due Date Last Done Comments Pneumococcal Vaccine: 50+ Ye ars (1 of 2 - PCV) 12/24/1978 Colorectal Cancer Screening: Annual FOBT 12/24/2008 Colorectal Cancer Screening: Colonoscopy 12/24/2008 Colorectal Cancer Screening: Sigmoidoscopy 12/24/2008 Influenza Vaccine (#1) 2024 Hepatitis B Vaccine Aged Out No longe r eligible based on patient's age to complete this topic Insurance Care Teams Funeral Service Practitioner/Embalmer Relationship Specialty Start Date End Date Arturo Martinez MD [address] [place] [address] [id number] [place], [place] PCP - General Internal Medicine 05/08/19
--- OUTSIDE RECORDS SUMMARY | 2025-02-15 16:34 | XMS_ITS | Encounter Summary ---
Author Organization [facility] Address [address] [place] [address] Phone Care Team Providers Care Administrative Support Technician Name Role Phone Arturo Martinez MD Primary Care Provider +1- [phone] Encounter Details Date Type Department Care Team (Late Contact Info) Description 03/08/2022 Documentation Only [facility] [address] [place] [address] Alex Gamino MD [address] [place] [address] [place] [address] Social History Tobacco Use Types [...] Visit [facility] [address] [place] [address] Alex Gamino MD [address] [place] [address] [place] [address] documented as of this encounter Visit Diagnoses Not on filedocumented in this encounter Care Teams Administrative Support Technician Relationship Specialty Start Date End Date Arturo Martinez MD [address] [place] [address] [address] [place] [address] PCP - General Internal Medicine 05/08/19 documented as of this encounter
--- OUTSIDE RECORDS SUMMARY | 2025-02-15 16:34 | XMS_ITS | Encounter Summary ---
Author Organization [facility] Address [address] [place] [address] Phone Care Team Providers Care Educational Aide Name Role Phone Arturo Martinez MD Primary Care Provider [phone]- [phone] Encounter Details Date Type Department Care Team (Late st Contact Info) Description 03/14/2023 Documentation Only [facility] [address] [place] [address] Julienne PadgettHARDY, [place] [address] [place] [address] Social History Tobacco Use Types [...] Visit [facility] [address] [place] [address] Alex Gamino MD [address] [place] [address] [place] [address] documented as of this encounter Visit Diagnoses Not on filedocumented in this encounter Care Teams Educational Aide Relationship Specialty Start Date End Date Arturo Martinez MD [address] [place] [address] [address] [place], [place] PCP - General Internal Medicine 05/08/19 documented as of this encounter
--- OUTSIDE RECORDS SUMMARY | 2025-02-15 16:35 | XMS_ITS | Encounter Summary ---
Author Organization [facility] Address [address] [place] [address] Phone Care Team Providers Care Solar Panel Technician Name Role Phone Arturo Martinez MD Primary Care Provider [phone]- [phone] Encounter Details Date Type Department Care Team (Late st Contact Info) Description 03/03/2024 Documentation Only [facility] [address] [place] [address] Julienne Padgett[place]DW[place], [place] [address] [place] [address] Social History Tobacco Use Types [...] Visit [facility] [address] [place] [address] Alex Gamino MD [address] [place] [address] [place] [address] documented as of this encounter Visit Diagnoses Not on filedocumented in this encounter Care Teams Solar Panel Technician Relationship Specialty Start Date End Date Arturo Martinez MD [address] [place] [address] [address] [place], [place] PCP - General Internal Medicine 05/08/19 documented as of this encounter
--- OUTSIDE RECORDS SUMMARY | 2025-02-15 16:35 | XMS_ITS | Encounter Summary ---
Author Organization [facility] Address [address] [place] [address] Phone Care Team Providers Care Technology Advisor Name Role Phone Arturo Martinez MD Primary Care Provider [phone]- [phone] Encounter Details Date Type Department Care Team (Late st Contact Info) Description 03/19/2024 Documentation Only [facility] [address] [place] [address] Julienne Padgett[place]AM[place], [place] [address] [place] [address] Social History Tobacco Use Types [...] Visit [facility] [address] [place] [address] Alex Gamino MD [address] [place] [address] [place] [address] documented as of this encounter Visit Diagnoses Not on filedocumented in this encounter Care Teams Technology Advisor Relationship Specialty Start Date End Date Arturo Martinez MD [address] [place] [address] [address] [place], [place] PCP - General Internal Medicine 05/08/19 documented as of this encounter
--- OUTSIDE RECORDS SUMMARY | 2025-02-15 16:35 | XMS_ITS | Encounter Summary ---
Author Organization [facility] Address [address] [place] [address] Phone Care Team Providers Care Dairy Worker Name Role Phone Arturo Martinez MD Primary Care Provider +1- [phone] Encounter Details Date Type Department Care Team (Late Contact Info) Description 02/23/2021 Documentation Only [facility] [address] [place] [address] Alex Gamino MD [address] [place] [address] [place] [address] Social History Tobacco Use Types [...] Visit [facility] [address] [place] [address] Alex Gamino MD [address] [place] [address] [place] [address] documented as of this encounter Visit Diagnoses Not on filedocumented in this encounter Care Teams Dairy Worker Relationship Specialty Start Date End Date Arturo Martinez MD [address] [place], [place] PCP - General Internal Medicine 05/08/19 documented as of this encounter
--- OUTSIDE RECORDS SUMMARY | 2025-02-15 16:35 | XMS_ITS | Encounter Summary ---
Author Organization [facility] Address [address] [place] [address] Phone Care Team Providers Care Fitness Trainer Name Role Phone Arturo Martinez MD Primary Care Provider [phone]- [phone] Encounter Details Date Type Department Care Team (Late Contact Info) Description 02/27/2021 Documentation Only [facility] [address] [place] [address] Alex Gamino MD [address] [place] [address] [place] [address] Social History Tobacco Use Types [...] [facility] [address] [place] [address] Alex Gamino MD [address] [place] [address] [place] [address] documented as of this encounter Visit Diagnoses Not on filedocumented in this encounter Care Teams Fitness Trainer Relationship Specialty Start Date End Date Arturo Martinez MD [address] [place], [place] PCP - General Internal Medicine 05/08/19 documented as of this encounter
--- OUTSIDE RECORDS SUMMARY | 2025-02-15 16:35 | XMS_ITS | Patient Health Record ---
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 Name Role Phone Juan DUKE, Arturo Primary Care Provider Jayme Chavez Jr Unavailable Allergies No Known Allergies Results Component Value Reference Range Flag Notes Liver Panel Reviewed date:10/12/2024 08:04:24 AM Interpretation: Performing Lab:[facility], [address] [place] [phone] Notes/Report: Bilirubin Total 1.2 0.0-1.0 mg/dL H Bilirubin Direct 0.4 0.0-0.5 mg/dL N Aspartate Amino Transferase 31 5-37 U/L N Alanine Aminotransferase 40 0-40 U/L N Total Protein 7.3 6.5-8.0 g/dL N Albumin Level 4.6 3.5-5.0 g/dL N Alkaline Phosphatase 72 39-117 U/L N IRON PROFILE Reviewed date:10/12/2024 08:04:12 AM Interpretation: Performing Lab:[facility], [address] [place] [phone] Notes/Report: Iron 93 45-160 mcg/dL N Total Iron Binding Capacity 284 228-428 mcg/dL N Percent Iron Saturation 33 15-50 % N Unsaturated Iron Binding 191 Ferritin Reviewed date:10/12/2024 08:04:09 AM Interpretation: Performing Lab:[facility], [address] [place] [phone] Notes/Report: Ferritin 365 20-250 ng/mL H Liver Fibrosis Pnl Reviewed date:10/12/2024 08:03:40 AM Interpretation: Performing Lab:[facility], [address] [facility], [place] [address] Notes/Report: Liver Fibrosis Score 0.12 Liver Fibrosis [...] a>0.62 and a<=1.00 : A3 (severe activity) YNA-Mpujr-8-Macroglobuli n 106 106-279 mg/dL FIB-Haptoglobin 92 43-212 mg/dL FIB-Apolipoprotein A1 170 94-176 mg/dL FIB-Total Bilirubin 0.9 0.2-1.2 mg/dL FIB-GGT 17 3-70 U/L FIB-ALT 26 9-46 U/L Reference ID [id number] Footnote SEE NOTE The reliability of results [...] The performance characteristics have been determined by [facility]. It has not been cleared or approved by the U.S. Food and Drug Administration. Performance characteristics refer to the analytical performance of the test. [employer], the associated logo, [employer] and all associated [employer] malin are the registered trademarks of [employer]. All third alliance party malin - (R) and (TM) - are the property of their respective owners. (C) [id number] [employer]. All rights reserved. THIS TEST WAS PERFORMED AT: [employer] [facility] [place] [address] [place] [address] HAYDER PAPPAS MD,PHD,VADIM ROBERTO Reflex Titer and Pattern Reviewed date:10/12/2024 08:03:49 AM Interpretation: Performing Lab:[facility], [address] [place] [phone] Notes/Report: Anti Nuclear Antibody Screen POSITIVE NEGATIVE A ROBERTO IFA is a first line screen for detecting the presence of up to approximately 150 autoantibodies in various autoimmune diseases. A positive ROBERTO IFA result is suggestive of autoimmune disease and reflexes to titer and pattern. Further laboratory testing may be considered if clinically indicated. For additional information, please refer to http://education.[employer]/faq/FA Q169 (This link is being provided for informational/ educational purposes only.) Anti Nuclear Antibody Titer 1:40 A A low level ROBERTO titer may be present in pre-clinical autoimmune diseases and normal individuals. Reference Range <1:40 Negative 1:40-1:80 Low Antibody Level >1:80 Elevated Antibody Level Anti Nuclear Antibody Pattern Nuclear, Speckled A Speckled pattern is associated with mixed connective tissue disease (MCTD), systemic lupus erythematosus (SLE), Sjogren's syndrome, dermatomyositis, and systemic sclerosis/polymyositis overlap. AC-2,4,5,29: Speckled International Consensus on ROBERTO Patterns (https://doi.org/10.15 15eihx-7291-4961) THIS TEST WAS PERFORMED AT: [employer] [address] [place] [phone] ANGELA EATON MD ROBERTO Titer 2 TNP ROBERTO Pattern 2 TNP ROBERTO Titer 3 TNP ROBERTO Pattern 3 TNP Mitochondrial Antibody Reviewed date:10/12/2024 08:03:38 AM Interpretation: Performing Lab:[address] [address] Notes/Report: Mitochondrial Antibodies NEGATIVE NEGATIVE N The specimen was negative for cytoplasmic antibodies, however additional staining was observed suggesting the presence of Antinuclear Antibodies. Consider requesting order code 249, ROBERTO Screen, IFA with Reflex to Titer and Pattern, or order code [id number], ROBERTO Screen, IFA w/reflex Titer/Pattern, and Reflex to Multiplex 11 [place], if clinically indicated. THIS TEST WAS PERFORMED AT: [employer] [address] [place] [phone] ANGELA EATON MD Mitochondrial Ab Titer TNP Smooth Muscle Antibody Reviewed date:10/12/2024 08:03:33 AM Interpretation: Performing Lab:[address] [address] Notes/Report: Smooth Muscle Antibody <20 <20 U [...] type 1. THIS TEST WAS PERFORMED AT: [employer]/[address] DAVID DUNCAN MD,PHD Hepatitis A,B,C Profile Reviewed date:10/12/2024 08:04:05 AM Interpretation: Performing Lab:[facility], [address] [place] [phone] Notes/Report: Hepatitis A Antibody IgM Nonreactive Nonreactive IgM antibodies to HAV not detected; does not exclude early acute or recovered HAV infection. Hepatitis B Surface Antibody NONREACTIVE Nonreactive Nonreactive: < 8 .00 mIU/mL Hepatitis B Core Antibody Nonreactive Nonreactive Hepatitis C Antibody Nonreactive Nonreactive Antibodies to HCV not detected; does not exclude early acute HCV infection. 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 Martinez's office for visit with Dr. August on 08-13-24 ext [phone] Referral Priority Routine Referring Provider First Name Arturo Referring Provider Last Name Juan Referring Provider Speciality Internal edicine [facility] Referred Provider Jayme August Jr Referred Address [address] [place] [address],[place], [place],[address], Referred Provider Specialty Gastroentero logy Referral Priority Routine Medications Medication SIG (Take, Route, Frequency, Duration) Notes Start Date End Date Status Hyoscyamine Active Carvedilol Active Vitamin C Active Lisinopril Active Allopurinol Active Metamucil Active Immunizations Vaccine Route Administration Date Status Comme nts Influenza Unknown 01/27/2025 Refused Social History Tobacco Use: Social History Observation Description Date Details (start date - stop date) Never Smoker NA - NA Social History Drugs/Alcohol: Social Info Question Answer Notes Alcohol Screen Did you have a drink containing alcohol in the past year? Yes How often did you have a drink containing alcohol in the past year? Never (0 point) How many drinks did you have on a typical day when you were drinking in the past year? 1 or 2 drinks (0 point) How often did you have 6 or more drinks on one occasion in the past year? 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 Problems Problem Type SNOMED Code ICD Code Onset Dates Problem Status W/U Status Risk Notes Problem Colon cancer screening (164127384) Colon cancer screening (Z12.11) Active confirmed Problem Irritable bowel syndrome with diarrhea (972186147) Irritable bowel syndrome with diarrhea (K58.0) Active confirmed Problem Increased liver function (34139593) LFT elevation (R94.5) Active confirmed Vital Signs Temperature 97.9 degrees Fahrenheit 01/27/2025 Blood pressure diastolic 01 mm Hg 01/27/2025 Height 69 in 01/27/2025 Blood pressure systolic 001 mm Hg 01/27/2025 Weight 174.0 lbs 01/27/2025 BMI 25.69 kg/m2 01/27/2025 Encounters Encounter Location Date Provider Diagnosis [facility] [place] Outpatient [address] [place] [id number] 11/24/2024 Jayme August Jr [facility] [address] [place] [phone] 08/13/2024 Jayme August Jr Irritable bowel syndrome with diarrhea K58.0 ; Colon cancer screening Z12.11 and LFT elevation R94.5 [facility] [address] [place] [phone] 01/27/2025 Jayme August Jr Irritable bowel syndrome with diarrhea K58.0 ; Colon cancer screening Z12.11 and LFT elevation R94.5 [facility] [address] [place] [phone] 08/14/2024 Jayme August Jr [facility] [address] [place] [phone] 09/30/2024 Jayme August Jr [facility] [address] [place] [phone] 10/12/2024 Jayme Damonmatthew Bee Assessments Encounter Date Diagnosis (ICD Code) Assessment [...] arranged. Follow-up will be in 1 year. 01/27/2025 Colon cancer screening (ICD-10 - Z12.11) Currently, he is doing well. We discussed this today. We recommended continued monitoring of liver function tests. We discussed diet, weight loss, exercise and management of any other comorbid conditions for treatment of fatty liver. IBS symptoms are under good control and he will continue hyoscyamine. He is up-to-date on colorectal cancer screening. 01/27/2025 Irritable bowel syndrome with diarrhea (ICD-10 - K58.0) Currently, he is doing well. We discussed this today. We recommended continued monitoring of liver function tests. We discussed diet, weight loss, exercise and management of any other comorbid conditions for treatment of fatty liver. IBS symptoms are under good control and he will continue hyoscyamine. He is up-to-date on colorectal cancer screening. 01/27/2025 LFT elevation (ICD-10 - R94.5) Currently, he is doing well. We discussed this today. We recommended continued monitoring of liver function tests. We discussed diet, weight loss, exercise and management of any other comorbid conditions for treatment of fatty liver. IBS symptoms are under good control and he will continue hyoscyamine. He is up-to-date on colorectal cancer screening. 08/13/2024 LFT elevation (ICD-10 - R94.5) At [...] Provider Name:Jayme martin Jr, 01/31/2026 09:00:00 AM, [address] [place] [address], [address], [place], [address], Insurance Providers Payer Name Payer Address Payer Phone Subscriber Number Group Number Insured Name Patient Relationship to Insured Coverage Start Date Coverage End Date [facility] [employer] [address] [place] [address] [id number] ETHAN RUIZ Self - patient is the insured Medical (General) History Medical History History ICD Code hypertension prostate cancer Gout pancreatitis 04/2019, ? secondary to irb esartan past hx of kidney stone gilberts syndrome basil cell carcinoma diverticulosis Colonoscopy 01/09, tubular adenoma, 5-ye ar follow-up Surgical History Surgery Date(Month/Year) Prostatectomy Left inguinal herniorrhaphy trigger finger
[2025-02-15 19:16] LABS: Alanine Aminotransferase 43 U/L (0-40); Albumin Level 4.4 g/dL (3.5-5.0); Alkaline Phosphatase 72 U/L (39-117); Anion Gap 14 (12-20); Aspartate Amino Transferase 36 U/L (5-37); Blood Urea Nitrogen 15 mg/dL (9-16); Calcium 8.7 mg/dL (8.4-10.2); Carbon Dioxide 25 mmol/L (22-29); Chloride 108 mmol/L (96-108); Estimated Glomerular Filt Rate 59; Potassium 4.5 mmol/L (3.3-5.1); Sodium 142 mmol/L (135-145); Total Protein 7.0 g/dL (6.5-8.0); Uric Acid 4.4 mg/dL (3.4-7.0)
== END 2025-02-15 14:12 ==
LOC: HO.HKASLDS 14:11
PROVIDERS: PCP Internal Medicine; Visit Provider Student in an Organized Health Care Education/Training Program
DX: M1A.09X1 Idiopathic chronic gout, multiple sites, with tophus (tophi) (principal)
CPT/HCPCS: 36415; 80053; 84550; 85652; 86140